=== PATIENT | female | born 1945 | race Caucasian/White ===

== ENCOUNTER 2020-07-02 20:18 | Inpatient (IN) | payer MEDICARE, OTHER ==
[~2020-07-02] VITALS: Ht 152.4 cm; Wt 48.3 kg
--- NOTE | 2020-07-02 20:45 | Diagnostic Imaging Report ---
Clinical indication: Patient with chest pain. Exam: Portable chest x-ray upright view. Comparisons: None. Findings: Lungs/pleura: Lungs are clear. There is no pneumothorax. There is no pleural effusion. Mediastinum: Unremarkable. Pulmonary vasculature: Unremarkable. Heart: Unremarkable. Bones/extrathoracic soft tissue: There are hypertrophic spurs involving the thoracic spine. Surgical clips are seen overlying the right upper quadrant which could be related to cholecystectomy changes. Impression: There is no radiographic evidence of acute cardiopulmonary process. Dictated by: Dictated on workstation # [id number]
[2020-07-02 20:48] LABS: WHITE BLOOD COUNT 34.2 10^3/uL (4.3-11.0)
[2020-07-02 20:49] LABS: BASOPHILS # (AUTO) 0.1 10^3/uL (0.0-0.1); BASOPHILS % (AUTO) 0 % (0-10); EOSINOPHILS % (AUTO) 0 % (0-10); HEMATOCRIT 38 % (35-52); HEMOGLOBIN 11.5 G/DL (11.5-16.0); LYMPHOCYTES # (AUTO) 1.2 X 10^3 (1.0-4.0); LYMPHOCYTES % (AUTO) 3 % (12-44); MEAN CORPUSCULAR HEMOGLOBIN 22 PG (25-34); MEAN CORPUSCULAR HGB CONC 31 G/DL (32-36); MEAN CORPUSCULAR VOLUME 73 FL (80-99); MEAN PLATELET VOLUME 8.7 FL (7.4-10.4); MONOCYTES % (AUTO) 6 % (0-12); NEUTROPHILS # (AUTO) 30.8 X 10^3 (1.8-7.8); NEUTROPHILS % (AUTO) 90 % (42-75); PLATELET COUNT 607 10^3/uL (130-400)
[2020-07-02] MEDS ORDERED: dilTIAZem DRIP PRE-MIX 125 ML IV SCH (21:00)
[2020-07-02 21:07] LABS: ALANINE AMINOTRANSFERASE 10 U/L (0-55); ALKALINE PHOSPHATASE 82 U/L (40-136); BILIRUBIN,TOTAL 0.3 MG/DL (0.1-1.0); BUN/CREATININE RATIO 19; CALCIUM 9.2 MG/DL (8.5-10.1); CARBON DIOXIDE 28 MMOL/L (21-32); CHLORIDE 97 MMOL/L (98-107); CREATININE SERUM 0.77 MG/DL (0.60-1.30); GFR ESTIMATED > 60; GLUCOSE 223 MG/DL (70-105); POTASSIUM 2.9 MMOL/L (3.6-5.0); SODIUM 138 MMOL/L (135-145); TOTAL PROTEIN 6.2 GM/DL (6.4-8.2)
[2020-07-02 21:08] LABS: LYMPHOCYTES % (MANUAL) 4 %; MONOCYTES % (MANUAL) 3 %; NEUTROPHILS % (MANUAL) 93 %; PLATELET ESTIMATE INCREASED
[2020-07-02 21:09] LABS: MICROCYTOSIS MODERATE; POIKILOCYTOSIS SLIGHT
[2020-07-02 21:10] LABS: ELLIPT/OVALOCYTES SLIGHT; TARGET CELLS MODERATE; TEAR DROP CELLS SLIGHT; TOXIC GRANULATION/VACUOLAZATIO 4+
[2020-07-02] MEDS ORDERED: CEFEPIME INJECTION 2,000 MG in WATER (STERILE) FOR INJECTION 20 ML IV ONE (21:15)
[2020-07-02] MEDS ORDERED: FUROSEMIDE 40 MG/4 ML INJ (LASIX) IVP ONE (22:15)
[2020-07-02] MEDS ORDERED: LABETALOL HCL 20 MG/4 ML VIAL IV ONE (22:15)
[2020-07-02] MEDS ORDERED: IOHEXOL 350 MG/ML 100 ML (OMNIPAQUE 350) VIAL IV ONE (23:15)
[2020-07-02] MEDS ORDERED: CATHETER FLUSH 10 ML SYR IV PRN (23:15)
[2020-07-02] MEDS ORDERED: HOLD METFORMIN - RECEIVED CONTRAST 20 ML VIAL IV SCH (23:15)
[2020-07-02] MEDS ORDERED: NS 100 ML (IVPB) BAG IV ONE (23:15)
[2020-07-02 23:58] LABS: CLARITY,URINE CLEAR; COLOR,URINE STRAW
[2020-07-03] VITALS (8 sets, daily range): BP systolic 101–140; BP diastolic 53–70
[2020-07-03 00:03] LABS: BILIRUBIN,URINE NEGATIVE (NEGATIVE); GLUCOSE, URINE (UA) NEGATIVE (NEGATIVE); KETONES,URINE NEGATIVE (NEGATIVE); LEUKOCYTE ESTERASE ,URINE NEGATIVE (NEGATIVE); NITRITE,URINE NEGATIVE (NEGATIVE); PROTEIN,URINE NEGATIVE (NEGATIVE); RBC,URINE 0-2 /HPF
[2020-07-03 00:04] LABS: BACTERIA,URINE TRACE /HPF
[2020-07-03] MEDS ORDERED: LEVOFLOXACIN 750 MG/150 ML IV 150 ML IV ONE (00:45)
[2020-07-03] MEDS ORDERED: metroNIDAZOLE 500MG/100ML IVPB 100 ML IV ONE (00:45)
--- NOTE | 2020-07-03 00:51 | ED General ---
General Chief Complaint: Cardiac/General Problems Stated Complaint: DIZZY,DEHYDRATION Nursing Triage Note: Patient is brought in via EMS with complaints of general malaise. Patient states that she has not been feeling well for several days. Patient did start to feel her heart race about 3 days ago. Patient also states that she has had one episode of A-fib in the hospital at but it had resolved prior to discharge. Patient reports poor oral intake and frequent falls. Nursing Sepsis Screen: No Definite Risk History of Present Illness Date Seen by Provider: Jul 03, 2020 Time Seen by Provider: 21:45 Initial Comments Patient is a 74-year-old female with history of proximal atrial fibrillation who presents with generalized weakness and palpitations. Patient noted to have A. fib with RVR on EMS arrival with heart rate in the 170s 180s. Patient denies chest pain but reports dizziness lightheadedness shortness of breath fatigue and weakness. Symptom onset was 3 days ago. Patient had episode of atrial fibrillation 3 years ago during his hospital stay but does not believe she has had any episodes since that time. She recently placed on a 5-day course of steroids for treatment of psoriasis. Patient also reports GI upset with diarrhea. Denies fever chills, nausea vomiting or sweats. No other symptoms or complaints. Timing/Duration: 3-4 Days Severity: Moderate Modifying Factors: improves with Other Associated Systoms: Other Allergies and Home Medications Allergies Coded Allergies: Penicillins (Verified Allergy, Intermediate, 07/02/20) Patient Home Medication List Home Medication List Reviewed: Yes Review of Systems Review of Systems Constitutional: see HPI EENTM: see HPI Respiratory: see HPI Cardiovascular: see HPI Gastrointestinal: see HPI Genitourinary: see HPI Musculoskeletal: see HPI Skin: see HPI Psychiatric/Neurological: See HPI Hematologic/Lymphatic: See HPI Immunological/Allergic: see HPI All Other Systems Reviewed Negative Unless Noted: Yes Past Asecchp-Sdeqef-Qhcspz Hx Past Med/Social Hx: Reviewed Nursing Past Med/Soc Hx Patient Social History Alcohol Use: Denies Use Smoking Status: Never a Smoker Recent Infectious Disease Expo: No Past Medical History Surgeries: Yes Gallbladder Respiratory: No Cardiac: Yes Atrial Fibrillation Neurological: No (Psoriatic Arthritis) Genitourinary: No Gastrointestinal: No Musculoskeletal: No Endocrine: No HEENT: No Cancer: No Psychosocial: No Integumentary: No Physical Exam Vital Signs Vital Signs - First Documented 07/02/20 20:18 Temp 36.8 Pulse 160 Resp 20 B/P (MAP) 108/65 (79) Pulse Ox 99 O2 Delivery Room Air Capillary Refill : Greater Than 3 Seconds Height, Weight, BMI Height: '" Weight: lbs. oz. kg; 21.00 BMI Method: General Appearance: No Apparent Distress, Anxious Eyes: Bilateral Eye Normal Inspection, Bilateral Eye PERRL, Bilateral Eye EOMI HEENT: PERRL/EOMI, Pharynx Normal, Moist Mucous Membranes Neck: Supple Respiratory: Lungs Clear Cardiovascular: Tachycardia Gastrointestinal: Non Tender, Soft, Abnormal Bowel Sounds Back: Normal Inspection, No CVA Tenderness Extremity: Normal Capillary Refill Neurologic/Psychiatric: Alert, Oriented x3 Focused Exam Sepsis Stage: Ruled Out Lactate Level 07/02/20 21:18: Lactic Acid Level 1.87 Lactic Acid Level Laboratory Tests Test 07/02/20 21:18 Lactic Acid Level 1.87 MMOL/L (0.50-2.00) Progress/Results/Core Measures Suspected Sepsis Recent Fever Within 48 Hours: No Infection Criteria Present: None New/Unexplained Altered Menta: No Sepsis Screen: No Definite Risk SIRS Temperature: Pulse: 160 Respiratory Rate: 20 Laboratory Tests 07/02/20 20:37: White Blood Count 34.2*H Blood Pressure 108 /65 Mean: 79 07/02/20 21:18: Lactic Acid Level 1.87 Laboratory Tests 07/02/20 20:37: Creatinine 0.77, Platelet Count 607H, Total Bilirubin 0.3 Results/Orders Lab Results Laboratory Tests Test 07/02/20 20:37 07/02/20 21:18 07/02/20 23:53 Range/Units White Blood Count 34.2 *H 4.3-11.0 10^3/uL Red Blood Count 5.19 4.35-5.85 10^6/uL Hemoglobin 11.5 11.5-16.0 G/DL Hematocrit 38 35-52 % Mean Corpuscular Volume 73 L 80-99 FL Mean Corpuscular Hemoglobin 22 L 25-34 PG Mean Corpuscular Hemoglobin Concent 31 L 32-36 G/DL Red Cell Distribution Width 19.4 H 10.0-14.5 % Platelet Count 607 H 130-400 10^3/uL Mean Platelet Volume 8.7 7.4-10.4 FL Immature Granulocyte % (Auto) 1 % Neutrophils (%) (Auto) 90 H 42-75 % Lymphocytes (%) (Auto) 3 L 12-44 % Monocytes (%) (Auto) 6 0-12 % Eosinophils (%) (Auto) 0 0-10 % Basophils (%) (Auto) 0 0-10 % Neutrophils # (Auto) 30.8 H 1.8-7.8 X 10^3 Lymphocytes # (Auto) 1.2 1.0-4.0 X 10^3 Monocytes # (Auto) 2.0 H 0.0-1.0 X 10^3 Eosinophils # (Auto) 0.0 0.0-0.3 10^3/uL Basophils # (Auto) 0.1 0.0-0.1 10^3/uL Immature Granulocyte # (Auto) 0.3 H 0.0-0.1 10^3/uL Neutrophils % (Manual) 93 % Lymphocytes % (Manual) 4 % Monocytes % (Manual) 3 % Toxic Granulation 4+ Platelet Estimate INCREASED Poikilocytosis SLIGHT Microcytosis MODERATE Target Cells MODERATE Tear Drop Cells SLIGHT Elliptocytes SLIGHT Sodium Level 138 135-145 MMOL/L Potassium Level 2.9 L 3.6-5.0 MMOL/L Chloride Level 97 L 98-107 MMOL/L Carbon Dioxide Level 28 21-32 MMOL/L Anion Gap 13 5-14 MMOL/L Blood Urea Nitrogen 15 7-18 MG/DL Creatinine 0.77 0.60-1.30 MG/DL Estimat Glomerular Filtration Rate > 60 BUN/Creatinine Ratio 19 Glucose Level 223 H 70-105 MG/DL Calcium Level 9.2 8.5-10.1 MG/DL Corrected Calcium 10.0 8.5-10.1 MG/DL Total Bilirubin 0.3 0.1-1.0 MG/DL Aspartate Amino Transf (AST/SGOT) 11 5-34 U/L Alanine Aminotransferase (ALT/SGPT) 10 0-55 U/L Alkaline Phosphatase 82 40-136 U/L Troponin I < 0.30 <0.30 NG/ML Pro-B-Type Natriuretic Peptide 926.7 H <75.0 PG/ML Total Protein 6.2 L 6.4-8.2 GM/DL Albumin 3.0 L 3.2-4.5 GM/DL Lactic Acid Level 1.87 0.50-2.00 MMOL/L Urine Color STRAW Urine Clarity CLEAR Urine pH 6.0 5-9 Urine Specific [place] 1.010 L 1.016-1.022 Urine Protein NEGATIVE NEGATIVE Urine Glucose (UA) NEGATIVE NEGATIVE Urine Ketones NEGATIVE NEGATIVE Urine Nitrite NEGATIVE NEGATIVE Urine Bilirubin NEGATIVE NEGATIVE Urine Urobilinogen 0.2 < = 1.0 MG/DL Urine Leukocyte Esterase NEGATIVE NEGATIVE Urine RBC (Auto) TRACE-I NEGATIVE Urine RBC 0-2 /HPF Urine WBC 10-25 H /HPF Urine Squamous Epithelial Cells 5-10 /HPF Urine Crystals NONE /LPF Urine Bacteria TRACE /HPF Urine Casts NONE /LPF Urine Mucus SMALL H /LPF Urine Culture Indicated YES My Orders Orders - LES JIMENEZ DO Cbc With Automated Diff (07/02/20 20:25) Comprehensive Metabolic Panel (07/02/20 20:25) Troponin I Fs (07/02/20 20:25) Probnp Fs (07/02/20 20:25) Chest 1 View Ap/Pa Only (07/02/20 20:25) Ekg Tracing (07/02/20 20:25) Manual Differential (07/02/20 20:37) Diltiazem Injection (Cardizem Injection) (07/02/20 21:00) Diltiazem Drip Pre-Mix (Cardizem Drip Pr (07/02/20 21:00) Urinalysis (07/02/20 21:04) Straight Cath (Urinary) (07/02/20 21:04) Blood Culture (07/02/20 21:04) Lactic Acid Analyzer (07/02/20 21:04) Blood Culture (07/02/20 21:04) Cefepime Injection (Maxipime Injection) (07/02/20 21:15) Ed Iv/Invasive Line Start (07/02/20 21:09) Furosemide Injection (Lasix Injection) (07/02/20 22:15) Ct Abdomen/Pelvis W (07/02/20 22:56) Iohexol Injection (Omnipaque 350 Mg/Ml 1 (07/02/20 23:15) Received Contrast (Hold Metformin- Contr (07/02/20 23:15) Sodium Chloride Flush (Catheter Flush Sy (07/02/20 23:15) Ns (Ivpb) (Sodium Chloride 0.9% Ivpb Bag (07/02/20 23:15) Urine Culture (07/02/20 23:53) Metronidazole 500mg/100ml Ivpb (Flagyl 5 (07/03/20 00:45) Levofloxacin 750 Mg/150 Ml Iv (Levaquin (07/03/20 00:45) Medications Given in ED Current Medications Medications Dose Ordered Sig/Danielle Route Start Time Stop Time Status Last Admin Dose Admin Cefepime HCl 2000 mg/Sterile Water 20 ml @ 240 mls/hr ONCE ONCE IV 07/02/20 21:15 07/02/20 21:19 DC 07/02/20 22:25 240 MLS/HR Diltiazem HCl 20 mg ONCE ONCE IVP 07/02/20 21:00 07/02/20 21:01 DC 07/02/20 21:02 20 MG Furosemide 40 mg ONCE ONCE IVP 07/02/20 22:15 07/02/20 22:16 DC 07/02/20 22:21 40 MG Iohexol 100 ml ONCE ONCE IV 07/02/20 23:15 07/02/20 23:16 DC 07/02/20 23:34 100 ML Sodium Chloride 10 ml NEEDED PRN IV 07/02/20 23:15 07/02/20 23:34 10 ML Vital Signs/I&O 07/02/20 20:18 Temp 36.8 Pulse 160 Resp 20 B/P (MAP) 108/65 (79) Pulse Ox 99 O2 Delivery Room Air Capillary Refill : Greater Than 3 Seconds Blood Pressure Mean: 79 Departure Communication (Admissions) Patient given Cardizem bolus and drip with improved rate control. Patient remains in A. fib. While in the ED. She had 3 grossly bloody bowel movements. Concern for possible sepsis due to elevation in white blood cell count. CT findings suggestive of colitis. IV antibiotics given. Blood pressure remained stable. But at fluid resuscitation due to colitis. Impression Primary Impression: Atrial fibrillation with RVR Additional Impression: Colitis Disposition: ADMITTED INPATIENT Condition: Stable Admissions Decision to Admit Reason: Admit from ER (General) Decision to Admit/Date: Jul 03, 2020 Time/Decision to Admit Time: 01:19 Transfer Transfer Reason: Exceeds level of care Method of Transfer: EMS Departure-Patient Inst. Decision time for Depature: 01:06 Referrals: JOSHUA MOORE DO (PCP/Family) Primary Care Physician LES JIMENEZ DO Jul 03, 2020 00:51
[2020-07-03] MEDS ORDERED: ONDANSETRON 4 MG/2 ML (SDV) Z0FRAN IVP PRN (03:45)
[2020-07-03 03:48] LABS: BASOPHILS % (AUTO) 0 % (0-10); EOSINOPHILS % (AUTO) 0 % (0-10); HEMATOCRIT 33 % (35-52); LYMPHOCYTES # (AUTO) 1.5 10^3/uL (1.0-4.0); LYMPHOCYTES % (AUTO) 7 % (12-44); MEAN CORPUSCULAR HEMOGLOBIN 22 pg (25-34); MEAN CORPUSCULAR HGB CONC 31 g/dL (32-36); MEAN CORPUSCULAR VOLUME 71 fL (80-99); MEAN PLATELET VOLUME 8.9 fL (9.0-12.2); MONOCYTES # (AUTO) 1.6 10^3/uL (0.0-1.0); MONOCYTES % (AUTO) 7 % (0-12); NEUTROPHILS # (AUTO) 19.3 10^3/uL (1.8-7.8); NEUTROPHILS % (AUTO) 86 % (42-75); PLATELET COUNT 455 10^3/uL (130-400); WHITE BLOOD COUNT 22.6 10^3/uL (4.3-11.0)
[2020-07-03 04:05] LABS: CHLORIDE 100 MMOL/L (98-107); POTASSIUM 2.8 MMOL/L (3.6-5.0); SODIUM 139 MMOL/L (135-145)
[2020-07-03 04:07] LABS: CALCIUM 8.8 MG/DL (8.5-10.1); GLUCOSE 157 MG/DL (70-105)
[2020-07-03 04:09] LABS: CARBON DIOXIDE 26 MMOL/L (21-32)
[2020-07-03 04:11] LABS: CREATININE SERUM 0.78 MG/DL (0.60-1.30); GFR ESTIMATED > 60; PHOSPHORUS 4.1 MG/DL (2.3-4.7)
[2020-07-03 04:12] LABS: BUN/CREATININE RATIO 18
[2020-07-03 04:13] LABS: MAGNESIUM 2.2 MG/DL (1.6-2.4)
[2020-07-03] MEDS: D5 1/2 NS 1000 ML IV SOLUTION 1,000 ML IV SCH ×2 (04:25→16:52)
[2020-07-03] MEDS: POTASSIUM CL 10MEQ/50ML IVPB 50 ML IV SCH ×4 (05:02→13:27)
--- NOTE | 2020-07-03 06:51 | Diagnostic Imaging Report ---
PROCEDURE: CT abdomen and pelvis with contrast. TECHNIQUE: Multiple contiguous axial images were obtained through the abdomen and pelvis after administration of intravenous contrast. Auto Exposure Controls were utilized during the CT exam to meet ALARA standards for radiation dose reduction. All CT scans use one or more of the following dose optimizing techniques: automated exposure control, MA and/or KvP adjustment based on patient size and exam type or iterative reconstruction. INDICATION: Gastrointestinal bleed. No relevant comparison. Detection and localization of suspected gastrointestinal bleed is limited by the presence of large bowel contrast in the absence of both preinjection and delayed post injection sequences. There is irregular thickening of the sigmoid colon. Curvilinear areas of intraluminal hyperdensity could be arterial phase contrast extravasation versus indwelling enteric contrast media. Underlying mass cannot be excluded and follow-up with colonoscopy recommended. There is extensive colonic diverticulosis. No abscess. There is no free air or extraluminal gas. There is some thickening of the mesial rectal fascia and stranding of the perirectal fat as well as stranding of the fat adjacent to the lower 3rd of the sigmoid colon. There is no bowel obstruction. The gallbladder is surgically absent. The liver appeared unremarkable. The adrenals negative. The spleen normal. The kidneys are unobstructed. The atherosclerotic aorta is patent and nonaneurysmal. The uterus unremarkable. No adnexal lesion. The ovaries nonvisualized. The urinary bladder itself appeared normal. The lung bases and the osseous structures nonacute. IMPRESSION: 1. Irregular thickening of the sigmoid with indeterminate intraluminal hyperdensity, an area of bleeding is suspected. Underlying mass could not be differentiated from changes of diverticulitis. No abscess or drainable fluid collection, no free air. 2. Nonaneurysmal atherosclerosis, previous cholecystectomy. No acute urinary tract pathology. 3. No lymphadenopathy or liver mass. 4. Not mentioned above, large duodenal diverticulum nonobstructing and nonacute. 5. No hemoperitoneum or retroperitoneal hemorrhage. Dictated by: Dictated on workstation # [id number]
[2020-07-03] MEDS: metroNIDAZOLE 500 MG/100 ML IVPB (PRE-MIX) IV SCH ×2 (08:58→16:52)
--- NOTE | 2020-07-03 09:52 | History & Physical-Hospitalist ---
MARIPOSAJaelMARY,MED STUDENT 07/03/20 0952: History of Present Illness HPI/Chief Complaint Patient is a 74yo female with a PMH of A-fib, HTN, psoriatic arthritis, T2DM and IBD who presented to [facility] c/o general malaise, weakness and palpitations for x3 days. She started noticing her heart racing 3 days ago and has since had weakness, dizziness and some lightheadedness. She has a history of an episode of A-fib when she was hospitalized at 3 years ago, but states it resolved during her stay and doesn't think she has had an episode since. She does not take any rate controlling medications. In the ED, her heart rate was in the 170's to 180's, and she was started on a Cardizem drip, and her rate improved. She also notes she has had diarrhea the last few days, and was noted to have 3 grossly bloody stools while in the ED. She reports a history of IBD, but says she only takes Imodium. She recently completed a 5 day course of prednisone for her psoriatic arthritis. She denies fevers, chills, SOB, chest pain, nausea, vomiting, or abdominal pain. Source: patient Exam Limitations: no limitations Date Seen 07/03/20 Attending Physician Rachel Benson MD PCP Masoud Abdullahi DO Referring Physician Date of Admission Jul 03, 2020 at 03:20 Home Medications & Allergies Home Medications Reviewed patient Home Medication Reconciliation performed by pharmacy medication reconciliations satellite tv technician and/or nursing. Patients Allergies have been reviewed. Allergies Allergies Coded Allergies Penicillins (Verified Allergy, Intermediate, 07/02/20) Past Scwmeup-Dirkzi-Gwslhd Hx Past Med/Social Hx: Reviewed Nursing Past Med/Soc Hx Patient Social History Alcohol Use: Denies Use Recreational Drug Use: No Smoking Status: Never a Smoker Recent Foreign Travel: No Contact w/other who traveled: No Recent Infectious Disease Expo: No Past Medical History Surgeries: Gallbladder Cardiac: Atrial Fibrillation, Hypertension Gastrointestinal: Colitis, Hemorrhoids, Irritable Bowel Endocrine: Diabetes, Non-Insulin dep Review of Systems Constitutional: No chills; dizziness; No fever; malaise EENTM: throat pain; No blurred vision, No double vision, No vision loss Respiratory: No cough, No short of breath, No wheezing Cardiovascular: see HPI; No chest pain, No edema; palpitations Gastrointestinal: see HPI; No abdominal pain; diarrhea, loss of appetite; No nausea, No vomiting Genitourinary: No dysuria, No hematuria, No pain Musculoskeletal: no symptoms reported Skin: no symptoms reported Psychiatric/Neurological: No Symptoms Reported Physical Exam Physical Exam Vital Signs Vital Signs - First Documented 07/02/20 20:18 Temp 36.8 Pulse 160 Resp 20 B/P (MAP) 108/65 (79) Pulse Ox 99 O2 Delivery Room Air Capillary Refill : Greater Than 3 Seconds Height, Weight, BMI Height: '" Weight: lbs. oz. kg; 20.79 BMI Method: General Appearance: No Apparent Distress, WD/WN HEENT: PERRL/EOMI, Moist Mucous Membranes, Pharyngeal Erythema Neck: Non Tender, Supple Respiratory: Lungs Clear, No Accessory Muscle Use, No Respiratory Distress Cardiovascular: No Edema, No Murmur, Tachycardia Gastrointestinal: Normal Bowel Sounds, Soft, Tenderness (RUQ and RLQ tenderness) Extremity: Normal Capillary Refill, No Calf Tenderness, No Pedal Edema Neurologic/Psychiatric: Alert, Oriented x3 Skin: Normal Color, Warm/Dry Results Results/Procedures Labs Laboratory Tests 07/02/20 20:37 07/03/20 03:40 Patient resulted labs reviewed. Assessment/Plan Assessment and Plan A-fib with RVR Currently off Cardizem Cardiology consulted Plan for Echo Colitis Surgery consulted On Levaquin and Flagyl Planning for colonoscopy tomorrow Hyperkalemia Continue to replace Mg 2.2 T2DM Diet controlled at home Monitor RACHEL BENSON MD 07/03/20 1211: History of Present Illness Time Seen by a Provider: 10:45 Past Khktpwu-Ytclri-Advoum Hx Past Med/Social Hx: Reviewed Nursing Past Med/Soc Hx Patient Social History Marrital Status: Family History Reviewed Nursing Family Hx Assessment/Plan Admission Diagnosis Atrial Fibrillation with RVR Admission Status: Inpatient Order (span 2 midnights) Reason for Inpatient Admission: see below Assessment and Plan Pt was admitted due to atrial fibrillation with rapid ventricular rate. She has had once episode of this in the past roughly 3 years ago but no recurrences and has not been on any medications for it. She has not felt well for a few days and related it to stress in her home life but yesterday worsened and called EMS. On EMS arrival HR was in the 170-180s. She was found to be in a-fib with RVR and admitted to the ICU. She also has bloody diarrhea. She reports this has been going on for 30 years ever since her gallbladder was removed. She was told she has irritable bowel disease and has just dealt with it but over the past couple of years has like ~60lbs due to her chronic diarrhea. She is now off cardizem and heart rate is well controlled. EKG confirms in sinus but sinus arrythmia upon my exam. Plan is for colonoscopy tomorrow with Dr Amanda. Discussed risks and benefits of anticoagulation at time and recommend holding blood thinners. Pt and family agreeable to this. Did discuss code status with patient in presence of her family and nurse and she elects to be a DNR. Order placed. Diagnosis/Problems Diagnosis/Problems (1) Atrial fibrillation with RVR Status: Acute (2) Diverticulitis Status: Acute (3) Bright red blood per rectum Status: Acute (4) Irritable bowel disease Qualifiers: Irritable bowel syndrome type: with diarrhea Qualified Codes: K58.0 - Irritable bowel syndrome with diarrhea (5) Normocytic anemia Status: Acute (6) Thrombocytosis Status: Acute (7) NSTEMI (non-ST elevated myocardial infarction) Status: Acute (8) Anxiety and depression Status: Chronic (9) Hypokalemia Status: Chronic (10) DNR (do not resuscitate) discussion Supervisory-Addendum Brief Verification & Attestation Participated in pt care: history, MDM, physical Personally performed: exam, history, MDM, supervision of care Care discussed with: Medical Student Procedures: n/a Results interpretation: Verified all documentation Verification and Attestation of Medical Student E/M Service A medical student performed and documented this service in my presence. I reviewed and verified all information documented by the medical student and made modifications to such information, when appropriate. I personally performed the physical exam and medical decision making. Rachel Benson, Jul 03, 2020,12:07 MARY CASTANEDA,MED STUDENT Jul 03, 2020 09:52 RACHEL BENSON MD Jul 03, 2020 12:11
[2020-07-03] MEDS: LEVOFLOXACIN 750 MG/D5W 150 ML PRE-MIX IV SCH (10:02)
--- NOTE | 2020-07-03 11:59 | CONSULTATION REPORT ---
DATE OF SERVICE: 07/03/2020 ADMITTING PRIMARY CARE PHYSICIAN: Masoud Abdullahi DO HISTORY: The patient is a 74-year-old female with a past medical history including atrial fibrillation, hypertension as well as psoriatic arthritis. She is originally from [place]; however, moved to [place] and then moved back to the area recently. She states that she was hospitalized at [facility] for approximately 10 days for complications related to psoriatic arthritis. At that time, she developed atrial fibrillation; however, states that it was only one episode and was not medicated. She reports that she did have her gallbladder removed approximately 25 years ago and since that time, she has had loose stools; however, in the past 2 years, she reports red blood per rectum on an intermittent basis, which was initially mild; however, has increased in frequency. She states that she was also diagnosed with irritable bowel syndrome. She has never had a colonoscopy up to this point in her life. She does not report any history of gastroesophageal reflux disease nor peptic ulcer disease. PAST MEDICAL HISTORY: Psoriatic arthritis, hypertension, diabetes, irritable bowel syndrome, history of atrial fibrillation. PAST SURGICAL HISTORY: Open cholecystectomy. ALLERGIES: PENICILLIN. MEDICATIONS: Prednisone, valacyclovir, fluoxetine. SOCIAL HISTORY: Previous smoker, quit 12 years ago, 40 pack years. Negative alcohol. FAMILY HISTORY: Mother, lung cancer. VITAL SIGNS: Temperature 36.8, blood pressure 120/55, pulse 72, respirations 17. REVIEW OF SYSTEMS: Well-nourished female currently in no acute distress. She is not experiencing any shortness of breath or difficulty breathing. No chest pain, palpitations, diaphoresis. No nausea, vomiting with loose stools with intermittent episodes of red blood per rectum for the past 2 years. She also reports losing approximately 60 pounds in that timeframe as well. No fever or chills. PHYSICAL EXAMINATION: CHEST: Clear. Good breath sounds bilaterally. HEART: Regular, no murmurs. EXTREMITIES: No lower extremity edema. Negative Homans sign. HEENT: No scleral icterus. NECK: No cervical lymphadenopathy. ABDOMEN: Soft, nontender, nondistended. LABORATORY DATA: WBC 22.6, hemoglobin 10.0, hematocrit 33, platelets 455. BUN 14, creatinine 0.78. ASSESSMENT AND PLAN: A 74-year-old female with intermittent rectal bleeding, atrial fibrillation and weight loss. A colonoscopy was recommended years ago; however, she was resistant at that time. However, she is willing to proceed with a colonoscopy, which we will schedule. Job ID: [id number] DocumentID: [id number] Dictated Date: 07/03/2020 11:45:40 Airplane Pilot Crop Dusting Date: 07/03/2020 11:58:59 Dictated By: ANAHI MACK MD
[2020-07-03] MEDS: inSUlin ASPART (NovoLOG) 1 UNIT/0.01 ML (CHARGE PER UNIT) SC SCH ×3 (12:00→21:13)
[2020-07-03] MEDS ORDERED: MAGNESIUM CITRATE 300 ML BTL PO ONE (13:00)
[2020-07-03] MEDS ORDERED: MAGIC MOUTHWASH, ADULT 155 ML BOTTLE PO SCH (13:00)
--- NOTE | 2020-07-03 13:11 | Consultation-Cardiology ---
HPI-Cardiology Cardiology Consultation: Date of Consultation 07/03/20 Time Seen by a Provider: 11:30 Date of Admission Attending Physician Eileen Benson MD Admitting Physician Masoud Abdullahi DO Consulting Physician AMRIK ARCHULETA MD, MA, FACP, FACC, FSCAI, CCDS HPI: Chief Complaint: Physician requesting consult: Dr Benson Reason for Cardiology consultation: PAF w/ RVR HPI 74 yo women admitted to Dr Benson on the night of 07/02/20 after she had presented with gen weakness and malaise and a feeling a rapid heart beat. Has had a bout of bright red blood per rectum during this hospitalization. Denies chest pain. Denies shortness of breath. Denies n/v. Has a chronic h/o psoriasis affecting mostly the skin of the lower limbs. Was placed recently on prednisone by her pcp. On the day or presentation, she was generally very weak. She had many episodes of weakness that "brought me down," but she specifically denies any juani syncope Review of Systems-Cardiology Review of Systems Constitutional: malaise; No weight loss, No weight gain Eyes: No vision change Ears/Nose/Throat: No ear discharge, No nasal drainage, No recent hearing loss Respiratory: As described under HPI Cardiovascular: As described under HPI Gastrointestinal: As described under HPI Genitourinary: No dysuria, No hematuria, No urine frequency changes Musculoskeletal: No back pain, No joint pain Skin: As described under HPI Psychiatric/Neurological: No seizure, No focal weakness, No syncope Hematologic: No bleeding abnormalities All Other Systems Reviewed Negative Unless Noted: Yes [id number] Hx Patient Social History Smoking Status: Never a Smoker Have you traveled recently?: No Alcohol Use?: No Pt feels they are or have been: No Past Medical History PMH As described under Assessment. Family Medical History Family Medical History: She does not report fam h/o early CAD or SCD Allergies and Home Medications Allergies Coded Allergies: Penicillins (Verified Allergy, Intermediate, 07/02/20) Patient Home Medication List Home Medication List Reviewed: Yes Physical Exam-Cardiology Physical Exam Vital Signs/I&O 07/03/20 07/03/20 07/03/20 07/03/20 02:36 03:30 03:32 03:34 Temp 36.6 Pulse 84 87 95 Resp 17 22 B/P (MAP) 89/68 104/60 (75) Pulse Ox 98 97 97 O2 Delivery Room Air Room Air Room Air 07/03/20 07/03/20 07/03/20 07/03/20 04:00 07:00 07:00 08:00 Pulse 38 68 71 78 Resp 18 29 B/P (MAP) 114/58 (76) 121/70 (87) 120/55 (76) Pulse Ox 97 O2 Delivery Room Air Room Air Room Air 07/03/20 07/03/20 07/03/20 07/03/20 08:06 08:09 09:00 10:00 Temp 36.8 Pulse 67 72 Resp 17 37 B/P (MAP) O2 Delivery Room Air Room Air Room Air 07/03/20 07/03/20 12:00 12:58 Pulse 83 75 Resp 10 B/P (MAP) 101/53 (69) Pulse Ox 98 O2 Delivery Room Air 07/03/20 00:00 Intake Total 20 ml Balance 20 ml Capillary Refill : Greater Than 3 Seconds Constitutional: AAO x 3, well-developed, well-nourished HEENT: EOMI, hearing is well preserved Neck: carotid pulses are 2 + bilaterally, with good upstrokes Respiratory: No accessory muscle use; other (fair to good, bilat air entry, diminished at the bases) Cardiovascular: regular rate-rhythm, S1 and S2, systolic murmur (soft STEPHANIE at card base) Gastrointestinal: No tender; soft; No guarding, No rebound; audible bowel sounds Extremities: No clubbing, No cyanosis, No significant edema Neurologic/Psychiatric: oriented x 3, other (moves all limbs equally) Skin: No rash on exposed areas, No ulcerations on exposed areas Data Review Labs Laboratory Tests 07/02/20 20:37: White Blood Count 34.2*H, Red Blood Count 5.19, Hemoglobin 11.5, Hematocrit 38, Mean Corpuscular Volume 73L, Mean Corpuscular Hemoglobin 22L, Mean Corpuscular Hemoglobin Concent 31L, Red Cell Distribution Width 19.4H, Platelet Count 607H, Mean Platelet Volume 8.7, Immature Granulocyte % (Auto) 1, Neutrophils (%) (Auto) 90H, Lymphocytes (%) (Auto) 3L, Monocytes (%) (Auto) 6, Eosinophils (%) (Auto) 0, Basophils (%) (Auto) 0, Neutrophils # (Auto) 30.8H, Lymphocytes # (Auto) 1.2, Monocytes # (Auto) 2.0H, Eosinophils # (Auto) 0.0, Basophils # (Auto) 0.1, Immature Granulocyte # (Auto) 0.3H, Neutrophils % (Manual) 93, Lymphocytes % (Manual) 4, Monocytes % (Manual) 3, Toxic Granulation 4+, Platelet Estimate INCREASED, Poikilocytosis SLIGHT, Microcytosis MODERATE, Target Cells MODERATE, Tear Drop Cells SLIGHT, Elliptocytes SLIGHT, Sodium Level 138, Potassium Level 2.9L, Chloride Level 97L, Carbon Dioxide Level 28, Anion Gap 13, Blood Urea Nitrogen 15, Creatinine 0.77, Estimat Glomerular Filtration Rate > 60, BUN/Creatinine Ratio 19, Glucose Level 223H, Calcium Level 9.2, Corrected Calcium 10.0, Total Bilirubin 0.3, Aspartate Amino Transf (AST/SGOT) 11, Alanine Aminotransferase (ALT/SGPT) 10, Alkaline Phosphatase 82, Troponin I < 0.30, Pro-B-Type Natriuretic Peptide 926.7H, Total Protein 6.2L, Albumin 3.0L 07/02/20 21:18: Lactic Acid Level 1.87 07/02/20 23:53: Urine Color STRAW, Urine Clarity CLEAR, Urine pH 6.0, Urine Specific [place] 1.010L, Urine Protein NEGATIVE, Urine Glucose (UA) NEGATIVE, Urine Ketones NEGATIVE, Urine Nitrite NEGATIVE, Urine Bilirubin NEGATIVE, Urine Urobilinogen 0.2, Urine Leukocyte Esterase NEGATIVE, Urine RBC (Auto) TRACE-I, Urine RBC 0-2, Urine WBC 10-25H, Urine Squamous Epithelial Cells 5-10, Urine Crystals NONE, Urine Bacteria TRACE, Urine Casts NONE, Urine Mucus SMALLH, Urine Culture Indicated YES 07/03/20 03:40: White Blood Count 22.6H, Red Blood Count 4.62, Hemoglobin 10.0L, Hematocrit 33L, Mean Corpuscular Volume 71L, Mean Corpuscular Hemoglobin 22L, Mean Corpuscular Hemoglobin Concent 31L, Red Cell Distribution Width 18.3H, Platelet Count 455H, Mean Platelet Volume 8.9L, Immature Granulocyte % (Auto) 1, Neutrophils (%) (Auto) 86H, Lymphocytes (%) (Auto) 7L, Monocytes (%) (Auto) 7, Eosinophils (%) (Auto) 0, Basophils (%) (Auto) 0, Neutrophils # (Auto) 19.3H, Lymphocytes # (Auto) 1.5, Monocytes # (Auto) 1.6H, Eosinophils # (Auto) 0.0, Basophils # (Auto) 0.0, Immature Granulocyte # (Auto) 0.1, Sodium Level 139, Potassium Level 2.8L, Chloride Level 100, Carbon Dioxide Level 26, Anion Gap 13, Blood Urea Nitrogen 14, Creatinine 0.78, Estimat Glomerular Filtration Rate > 60, BUN/Creatinine Ratio 18, Glucose Level 157H, Calcium Level 8.8, Troponin I 0.757*H, Phosphorus Level 4.1, Magnesium Level 2.2 07/03/20 12:09: Glucometer 141H Microbiology 07/02/20 Urine Culture - Preliminary, Resulted A/P-Cardiology Assessment/Admission Diagnosis Marked leucocytosis of undetermined etiology, managed by Dr Kelley Carrero (probably of sigmoid colonic origin, based on CT abd of 07/02/20) managed by Dr Benson PAF with RVR diagnosed on 07/02/20 (also h/o a similar episode during hosp at [facility] in or around 2016). Currently NSR Mild elevation of troponin, likely type 2 MO due to a long episode of A Fib with vent rate around 180 Psoriasis Hypokalemia, likely from GI losses. Hypokalemia probably promoting PAF Discussion and Recomendations * Correct electrolytes * Oral, long-acting dilt for vent rate control during PAF * Start apixaban for stroke prophylaxis after the source of GI bleed has been found and treated * I answered her and her 's heart-related questions in detail * Monitor labs AMRIK ARCHULETA MD FACP FAC CCDS Jul 03, 2020 13:11
[2020-07-03] MEDS: MAGIC MOUTHWASH (ADULT) PO SCH ×16 (13:56→22:59)
[2020-07-03] MEDS ORDERED: MAGNESIUM CITRATE 300 ML BTL PO NR (18:00)
--- NOTE | 2020-07-03 23:14 | Progress Note-Pre Operative ---
Pre-Operative Progress Note H&P Reviewed The H&P was reviewed, patient examined and no changes noted. Date Seen by Provider: Jul 03, 2020 Time Seen by Provider: 23:00 Date H&P Reviewed: Jul 03, 2020 Time H&P Reviewed: 23:00 Pre-Operative Diagnosis: rectal bleed, emilia-ANAHI Sheth MD Jul 03, 2020 23:14
[2020-07-04] VITALS (8 sets, daily range): BP systolic 98–130; BP diastolic 53–60
[2020-07-04] MEDS: metroNIDAZOLE 500 MG/100 ML IVPB (PRE-MIX) IV SCH ×3 (01:02→17:31)
[2020-07-04 06:05] LABS: BASOPHILS % (AUTO) 0 % (0-10); EOSINOPHILS # (AUTO) 0.2 10^3/uL (0.0-0.3); EOSINOPHILS % (AUTO) 1 % (0-10); HEMATOCRIT 29 % (35-52); HEMOGLOBIN 8.9 g/dL (11.5-16.0); LYMPHOCYTES # (AUTO) 1.3 10^3/uL (1.0-4.0); LYMPHOCYTES % (AUTO) 11 % (12-44); MEAN CORPUSCULAR HEMOGLOBIN 22 pg (25-34); MEAN CORPUSCULAR HGB CONC 30 g/dL (32-36); MEAN CORPUSCULAR VOLUME 72 fL (80-99); MEAN PLATELET VOLUME 8.9 fL (9.0-12.2); MONOCYTES # (AUTO) 1.1 10^3/uL (0.0-1.0); MONOCYTES % (AUTO) 10 % (0-12); NEUTROPHILS # (AUTO) 8.6 10^3/uL (1.8-7.8); NEUTROPHILS % (AUTO) 77 % (42-75); PLATELET COUNT 377 10^3/uL (130-400); WHITE BLOOD COUNT 11.2 10^3/uL (4.3-11.0)
[2020-07-04 06:09] LABS: CHLORIDE 106 MMOL/L (98-107); SODIUM 141 MMOL/L (135-145)
[2020-07-04 06:11] LABS: CALCIUM 7.6 MG/DL (8.5-10.1); GLUCOSE 129 MG/DL (70-105)
[2020-07-04 06:13] LABS: CARBON DIOXIDE 26 MMOL/L (21-32)
[2020-07-04 06:15] LABS: CREATININE SERUM 0.67 MG/DL (0.60-1.30); GFR ESTIMATED > 60; PHOSPHORUS 2.2 MG/DL (2.3-4.7)
[2020-07-04 06:16] LABS: BUN/CREATININE RATIO 9
[2020-07-04] MEDS: inSUlin ASPART (NovoLOG) 1 UNIT/0.01 ML (CHARGE PER UNIT) SC SCH ×4 (06:16→20:05)
[2020-07-04 06:17] LABS: MAGNESIUM 2.6 MG/DL (1.6-2.4)
[2020-07-04 06:31] LABS: POTASSIUM 2.4 MMOL/L (3.6-5.0)
[2020-07-04] MEDS ORDERED: POTASSIUM CL 10MEQ/50ML IVPB 50 ML IV ONE (06:35)
[2020-07-04] MEDS: POTASSIUM CL 10MEQ/50ML IVPB 50 ML IV SCH ×4 (06:41→18:27)
[2020-07-04] MEDS: D5 1/2 NS 1000 ML IV SOLUTION 1,000 ML IV SCH ×2 (06:42→08:03)
[2020-07-04] MEDS: LEVOFLOXACIN 750 MG/D5W 150 ML PRE-MIX IV SCH (08:57)
[2020-07-04] MEDS: MAGIC MOUTHWASH (ADULT) PO SCH ×16 (09:00→20:53)
[2020-07-04] MEDS ORDERED: LIDOCAINE JELLY 2% 6 ML SYRINGE ONE (09:16)
[2020-07-04] MEDS ORDERED: LACTATED RINGERS 1,000 ML IV ONE ×2 (09:18→10:15)
[2020-07-04] MEDS ORDERED: LIDOCAINE JELLY 2% 6 ML SYRINGE TOP ONE (10:15)
[2020-07-04] MEDS ORDERED: MIDAZOLAM 2 MG/2 ML (VERSED) VIAL ONE (10:47)
[2020-07-04] MEDS ORDERED: PROPOFOL INJECTION 50 ML IV ONE (10:47)
[2020-07-04] MEDS ORDERED: GLYCOPYRROLATE 0.2 MG/ML (ROBINUL) 2 ML VIAL ONE (11:07)
--- NOTE | 2020-07-04 11:25 | Progress Note - Hospitalist ---
MARY CASTANEDA,MED STUDENT 07/04/20 1125: Subjective HPI/CC On Admission Date Seen by Provider: Jul 04, 2020 Subjective/Events-last exam No new concerns today. Completed bowel prep and will have colonoscopy this morning. Focused Exam Lactate Level 07/02/20 21:18: Lactic Acid Level 1.87 Objective Exam Vital Signs Vital Signs Date Time Temp Pulse Resp B/P (MAP) Pulse Ox O2 Delivery O2 Flow Rate FiO2 07/04/20 08:06 Room Air 07/04/20 08:04 36.4 97 16 119/58 (78) 98 Capillary Refill : Greater Than 3 Seconds General Appearance: No Apparent Distress, WD/WN HEENT: PERRL/EOMI, Pharynx Normal Respiratory: Lungs Clear, No Accessory Muscle Use, No Respiratory Distress Cardiovascular: Regular Rate, Rhythm, No Murmur, Normal Peripheral Pulses Gastrointestinal: Non Tender, Soft Extremity: Normal Capillary Refill, No Calf Tenderness, No Pedal Edema Neurologic/Psychiatric: Alert, Oriented x3, Normal Mood/Affect Skin: Normal Color, Warm/Dry Results/Procedures Lab Laboratory Tests 07/04/20 05:45 Patient resulted labs reviewed. Assessment/Plan Assessment and Plan Assess & Plan/Chief Complaint A-fib with RVR Currently off Cardizem Cardiology consulted EF 55-60%, grade 1 diastolic dysfunction per echo 07/03 Colitis Surgery consulted On Levaquin and Flagyl Planning for colonoscopy today Hypokalemia Completed bowel prep overnight Continue to replace Repeat labs tomorrow T2DM Diet controlled at home Monitor RACHEL BENSON MD 07/04/20 1431: Subjective HPI/CC On Admission Time Seen by Provider: 09:10 Assessment/Plan Assessment and Plan Assess & Plan/Chief Complaint Pt reports having a rough night with her bowel prep and not getting much sleep. Otherwise no complaints. Discussed plan for colonscopy today and further plans could follow that. Replaced potassium this AM. Trend. Will place on protocol. Continue to hold anticoagulation still. Supervisory-Addendum Brief Verification & Attestation Participated in pt care: history, MDM, physical Personally performed: exam, history, MDM, supervision of care Care discussed with: Medical Student Procedures: n/a Results interpretation: Verified all documentation Verification and Attestation of Medical Student E/M Service A medical student performed and documented this service in my presence. I reviewed and verified all information documented by the medical student and made modifications to such information, when appropriate. I personally performed the physical exam and medical decision making. Rachel Benson, Jul 04, 2020,14:26 MARY CASTANEDA,MED STUDENT Jul 04, 2020 11:25 RACHEL BENSON MD Jul 04, 2020 14:31
--- NOTE | 2020-07-04 11:50 | Progress Note-Post Operative ---
Post-Operative Progess Note Surgeon (s)/Hand Mounter (s) Surgeon Dr. Seferino Amanda M.D. Hand Mounter: None Pre-Operative Diagnosis rectal bleed, a-fib Post-Operative Diagnosis Internal and external hemorrhoids between stage II-III, rectal mass 5 cm from anal verge, moderate sigmoid diverticulosis Procedure & Operative Findings Date of Procedure 07/04/20 Procedure Performed/Findings Colonoscopy with biopsy and submucosal injection Anesthesia Type MAC Estimated Blood Loss Estimated blood loss (mL): Minimal Specimens/Packing Specimens Removed 1) Rectal Mass JAIME DANIELS PROGRAM ARCHITECT Jul 04, 2020 11:50
--- NOTE | 2020-07-04 12:19 | Progress Note - Cardiology ---
Cardiology SOAP Progress Note Subjective: No cp or palp or syncope Gen malaise as before No shortness of breath at rest No focal weakness Objective: I&O/Vital Signs 07/04/20 07/04/20 07/04/20 07/04/20 01:00 04:02 07:00 08:04 Temp 36.7 36.4 Pulse 76 84 67 97 Resp 18 16 B/P (MAP) 98/55 (69) 119/58 (78) Pulse Ox 98 98 O2 Delivery Room Air Room Air 07/04/20 07/04/20 07/04/20 07/04/20 08:06 11:25 11:30 11:35 Pulse 71 72 75 Resp 16 16 18 Pulse Ox 98 98 97 O2 Delivery Room Air Room Air Room Air Room Air 07/04/20 11:53 Temp 35.9 Pulse 81 Resp 20 B/P (MAP) 130/60 (83) Pulse Ox 100 O2 Delivery Room Air 07/04/20 00:00 Intake Total 900 ml Balance 900 ml Constitutional: AAO x 3, well-developed, well-nourished Respiratory: No accessory muscle use; other (fair to good, bilat air entry, diminished at the bases) Cardiovascular: regular rate-rhythm, S1 and S2, systolic murmur (soft STEPHANIE at card base) Gastrointestional: No tender; soft; No guarding, No rebound; audible bowel sounds Extremities: No clubbing, No cyanosis, No significant edema Neurologic/Psychiatric: oriented x 3, other (moves all limbs equally) Skin: No rash on exposed areas, No ulcerations on exposed areas Results/Procedures: Labs Laboratory Tests 07/03/20 16:01: Glucometer 117H 07/03/20 21:03: Glucometer 146H 07/04/20 05:36: Glucometer 130H 07/04/20 05:45: White Blood Count 11.2H, Red Blood Count 4.08, Hemoglobin 8.9L, Hematocrit 29L, Mean Corpuscular Volume 72L, Mean Corpuscular Hemoglobin 22L, Mean Corpuscular Hemoglobin Concent 30L, Red Cell Distribution Width 18.1H, Platelet Count 377, Mean Platelet Volume 8.9L, Immature Granulocyte % (Auto) 1, Neutrophils (%) (Auto) 77H, Lymphocytes (%) (Auto) 11L, Monocytes (%) (Auto) 10, Eosinophils (%) (Auto) 1, Basophils (%) (Auto) 0, Neutrophils # (Auto) 8.6H, Lymphocytes # (Auto) 1.3, Monocytes # (Auto) 1.1H, Eosinophils # (Auto) 0.2, Basophils # (Auto) 0.0, Immature Granulocyte # (Auto) 0.1, Sodium Level 141, Potassium Level 2.4*L, Chloride Level 106, Carbon Dioxide Level 26, Anion Gap 9, Blood Urea Nitrogen 6L, Creatinine 0.67, Estimat Glomerular Filtration Rate > 60, BUN/Creatinine Ratio 9, Glucose Level 129H, Calcium Level 7.6L, Phosphorus Level 2.2L, Magnesium Level 2.6H 07/04/20 09:20: Coronavirus 2019 ([facility]) Negative 07/04/20 11:57: Glucometer 92 Microbiology 07/02/20 Urine Culture - Final, Complete NO GROWTH Laboratory Tests 07/02/20 20:37 07/03/20 03:40 07/04/20 05:45 A/P: Assessment: Hemotchezia due to rectal mass (diagnosed on endoscopy of 07/04/20) Leucocytosis of undetermined etiology, managed by Dr Benson PAF with RVR diagnosed on 07/02/20 (also h/o a similar episode during hosp at [facility] in or around 2016). Currently NSR Mild elevation of troponin, likely type 2 ND due to a long episode of A Fib with vent rate around 180 Psoriasis Hypokalemia, likely from GI losses. Hypokalemia probably promoting PAF Plan: * Correct electrolytes * Continue oral, long-acting dilt for vent rate control during PAF * Start apixaban for stroke prophylaxis after the source of GI bleed has been found and treated * Monitor labs AMRIK ARCHULETA MD [facility] CCDS Jul 04, 2020 12:19
[2020-07-04] MEDS: VALACYCLOVIR 500 MG TAB (VALTREX) PO SCH (12:55)
[2020-07-04] MEDS: FLUoxetine HCL 20 MG (PROzac) CAP PO SCH (12:55)
--- NOTE | 2020-07-04 13:38 | Anesthesia-General Post-Op ---
MAC Patient Condition Mental Status/LOC: Same as Preop Cardiovascular: Satisfactory Nausea/Vomiting: Absent Respiratory: Satisfactory Pain: Controlled Complications: Absent Post Op Complications Complications None Follow Up Care/Instructions Patient Instructions None needed. Anesthesiology Discharge Order Discharge Order Patient is doing well, no complaints, stable vital signs, no apparent adverse anesthesia problems. No complications reported per nursing. AVA VILLASENOR CRNA Jul 04, 2020 13:38
--- NOTE | 2020-07-04 15:44 | OPERATIVE REPORT ---
DATE OF SERVICE: 07/04/2020 ATTENDING PRIMARY CARE PHYSICIAN: Dr. Erazo. PREOPERATIVE DIAGNOSIS: Rectal bleeding for the past two years. POSTOPERATIVE DIAGNOSES: 1. Large rectal mass, which is oval in shape and long with the distal portion of the mass approximately 5 cm from the anal verge. 2. Chronic between stage II and III external and internal hemorrhoids as well as a moderate sigmoid diverticulosis. PROCEDURE PERFORMED: Colonoscopy with biopsy and submucosal injection. SURGEON: Anahi Mack MD. ANESTHESIA: Monitored anesthesia care. ESTIMATED BLOOD LOSS: Minimal. FINDINGS: 1. Large rectal mass, which is oval in shape and long with the distal portion of the mass approximately 5 cm from the anal verge and approximately 5cm in length. The lesion is not obstructing and consistent with carcinoma. 2. Chronic between stage II and III external and internal hemorrhoids as well as a moderate sigmoid diverticulosis. DISPOSITION: The patient tolerated the procedure well. INDICATIONS FOR PROCEDURE: The patient is a 74-year-old female who presented to the emergency department with heart palpitations and was found initially to be in atrial fibrillation; however, converted on her own. She states that she did have one episode before when she was admitted at [facility] for what sounds to be psoriatic arthritis. She reports that she has had rectal bleeding now for two years, which used to be less frequent; however, in the past several months, this has become almost a daily occurrence. She also does report a 60-pound weight loss. DESCRIPTION OF PROCEDURE: The patient was brought to the endoscopy suite and laid in a left lateral decubitus position. After adequate IV pain and sedative medications and monitored anesthesia care, a digital rectal examination was performed. Acute on chronic between stage II and III external and internal hemorrhoids identified with some irritation of an external hemorrhoidal cushion. Normal sphincter tone was felt and there was a palpable mass at approximately 5 cm from the anal verge. The endoscope was then intubated and anus and rectum gently insufflated. A frond-like mass, which was oblong in shape and long, was identified. This is likely a carcinoma. The lesion was approximately 5cm from the anal verge and 5cm in lenght. Multiple biopsies were taken with forceps with visualization of good hemostasis. We also proceeded with submucosal black ink injection just proximal and distal to the lesion. The endoscope was then advanced through the sigmoid colon, where moderate sigmoid diverticulosis was identified. The endoscope was then advanced to the remainder of the descending, transverse and ascending colon to the cecum. These segments were normal. There were no other lesions identified. The endoscope was then slowly withdrawn while taking a second look and suctioning of residual air with no additional findings. The patient tolerated the procedure well. We will await the biopsy results; however, this is worrisome for malignancy and would likely need chemoradiation to downsize the tumor as well as a resection; however, this is close to the anal verge and if she does proceed with surgery, we would have to reevaluate the distance from the anal verge and see if a low anterior resection is feasible. If not, then she may need an abdominoperineal resection, which in that case, we would refer her to a tertiary center. Job ID: [id number] DocumentID: [id number] Dictated Date: 07/04/2020 11:29:59 Pluck Trimmer Date: 07/04/2020 15:42:57 Dictated By: ANAHI MACK MD MTDD
[2020-07-04 22:39] LABS: CHLORIDE 106 MMOL/L (98-107); POTASSIUM 2.9 MMOL/L (3.6-5.0); SODIUM 140 MMOL/L (135-145)
[2020-07-04 22:40] LABS: CALCIUM 7.4 MG/DL (8.5-10.1); GLUCOSE 123 MG/DL (70-105)
[2020-07-04 22:42] LABS: CARBON DIOXIDE 26 MMOL/L (21-32)
[2020-07-04 22:44] LABS: CREATININE SERUM 0.67 MG/DL (0.60-1.30); GFR ESTIMATED > 60
[2020-07-04 22:45] LABS: BUN/CREATININE RATIO 6
[2020-07-04] MEDS ORDERED: MELATONIN 10 MG TABLET PO PRN (22:49)
[2020-07-04] MEDS ORDERED: MELATONIN 3 MG TABLET ONE (22:59)
[2020-07-04] MEDS: MELATONIN 3 MG TABLET PO PRN (23:11)
[2020-07-05] VITALS: BP 119/56
[2020-07-05] MEDS: metroNIDAZOLE 500 MG/100 ML IVPB (PRE-MIX) IV SCH ×3 (00:53→18:13)
[2020-07-05 04:00] VITALS: BP 110/54
[2020-07-05] MEDS ORDERED: D5 1/2 NS 1000 ML IV SOLUTION 0 ML IV ONE (04:06)
[2020-07-05 05:17] LABS: BASOPHILS % (AUTO) 0 % (0-10); EOSINOPHILS # (AUTO) 0.2 10^3/uL (0.0-0.3); EOSINOPHILS % (AUTO) 2 % (0-10); HEMATOCRIT 30 % (35-52); LYMPHOCYTES % (AUTO) 16 % (12-44); MEAN CORPUSCULAR HEMOGLOBIN 22 pg (25-34); MEAN CORPUSCULAR HGB CONC 30 g/dL (32-36); MEAN CORPUSCULAR VOLUME 73 fL (80-99); MONOCYTES # (AUTO) 1.1 10^3/uL (0.0-1.0); MONOCYTES % (AUTO) 9 % (0-12); NEUTROPHILS # (AUTO) 9.2 10^3/uL (1.8-7.8); NEUTROPHILS % (AUTO) 73 % (42-75); PLATELET COUNT 388 10^3/uL (130-400); WHITE BLOOD COUNT 12.6 10^3/uL (4.3-11.0)
[2020-07-05 05:26] LABS: CHLORIDE 108 MMOL/L (98-107); SODIUM 142 MMOL/L (135-145)
[2020-07-05 05:27] LABS: CALCIUM 7.7 MG/DL (8.5-10.1)
[2020-07-05 05:28] LABS: GLUCOSE 99 MG/DL (70-105)
[2020-07-05 05:29] LABS: CARBON DIOXIDE 25 MMOL/L (21-32)
[2020-07-05 05:31] LABS: PHOSPHORUS 2.4 MG/DL (2.3-4.7)
[2020-07-05 05:32] LABS: BUN/CREATININE RATIO 6; CREATININE SERUM 0.69 MG/DL (0.60-1.30); GFR ESTIMATED > 60
[2020-07-05] MEDS: KCL 20 MEQ TAB (K-DUR) PO SCH (05:33)
[2020-07-05] MEDS: POTASSIUM CL 10MEQ/50ML IVPB 50 ML IV SCH (05:33)
[2020-07-05 05:34] LABS: MAGNESIUM 2.5 MG/DL (1.6-2.4)
[2020-07-05] MEDS: inSUlin ASPART (NovoLOG) 1 UNIT/0.01 ML (CHARGE PER UNIT) SC SCH ×4 (05:34→20:11)
[2020-07-05] MEDS: MAGNESIUM 1 GM/100 ML IVPB 100 ML IV SCH (05:35)
[2020-07-05] MEDS ORDERED: KCL 20 MEQ TAB (K-DUR) PO ONE ×3 (06:00→10:00)
[2020-07-05 07:41] VITALS: BP 114/59
[2020-07-05] MEDS: VALACYCLOVIR 500 MG TAB (VALTREX) PO SCH (08:16)
[2020-07-05] MEDS: LEVOFLOXACIN 750 MG/D5W 150 ML PRE-MIX IV SCH (08:17)
[2020-07-05] MEDS: FLUoxetine HCL 20 MG (PROzac) CAP PO SCH (08:17)
[2020-07-05] MEDS: MAGIC MOUTHWASH (ADULT) PO SCH ×16 (08:18→20:47)
--- NOTE | 2020-07-05 09:48 | Progress Note - Cardiology ---
Cardiology SOAP Progress Note Objective: I&O/Vital Signs 07/06/20 07/06/20 07/06/20 07/06/20 00:17 01:00 04:59 07:00 Temp 36.2 36.2 Pulse 65 60 61 60 Resp 18 16 B/P (MAP) 100/66 (77) 118/66 (83) Pulse Ox 98 97 O2 Delivery Room Air Room Air 07/06/20 07/06/20 07/06/20 08:00 08:00 09:13 Temp 36.1 Pulse 63 Resp 20 B/P (MAP) 107/59 (75) Pulse Ox 99 98 O2 Delivery Room Air Room Air Room Air 07/06/20 00:00 Intake Total 650 ml Balance 650 ml Constitutional: AAO x 3, well-developed, well-nourished Respiratory: No accessory muscle use; other (fair to good, bilat air entry, diminished at the bases) Cardiovascular: regular rate-rhythm, S1 and S2, systolic murmur (soft STEPHANIE at card base) Gastrointestional: No tender; soft; No guarding, No rebound; audible bowel sounds Extremities: No clubbing, No cyanosis, No significant edema Neurologic/Psychiatric: oriented x 3, other (moves all limbs equally) Skin: No rash on exposed areas, No ulcerations on exposed areas Results/Procedures: Labs Laboratory Tests 07/05/20 11:12: Glucometer 89 07/05/20 14:05: Sodium Level 141, Potassium Level 4.1, Chloride Level 109H, Carbon Dioxide Level 25, Anion Gap 7, Blood Urea Nitrogen 8, Creatinine 0.69, Estimat Glomerular Filtration Rate > 60, BUN/Creatinine Ratio 12, Glucose Level 134H, Calcium Level 7.6L 07/05/20 15:35: Glucometer 95 07/05/20 19:56: Glucometer 160H 07/06/20 05:23: White Blood Count 10.5, Red Blood Count 3.96, Hemoglobin 8.6L, Hematocrit 29L, Mean Corpuscular Volume 73L, Mean Corpuscular Hemoglobin 22L, Mean Corpuscular Hemoglobin Concent 30L, Red Cell Distribution Width 19.1H, Platelet Count 348, Mean Platelet Volume 9.1, Immature Granulocyte % (Auto) 0, Neutrophils (%) (Auto) 68, Lymphocytes (%) (Auto) 20, Monocytes (%) (Auto) 9, Eosinophils (%) (Auto) 2, Basophils (%) (Auto) 0, Neutrophils # (Auto) 7.2, Lymphocytes # (Auto) 2.1, Monocytes # (Auto) 1.0, Eosinophils # (Auto) 0.3, Basophils # (Auto) 0.0, Immature Granulocyte # (Auto) 0.0, Sodium Level 141, Potassium Level 4.6, Chloride Level 111H, Carbon Dioxide Level 22, Anion Gap 8, Blood Urea Nitrogen 7, Creatinine 0.65, Estimat Glomerular Filtration Rate > 60, BUN/Creatinine Ratio 11, Glucose Level 92, Calcium Level 7.7L, Phosphorus Level 2.0L, Magnesium Level 2.1 Microbiology 07/02/20 Urine Culture - Final, Complete NO GROWTH 07/02/20 Blood Culture - Preliminary, Resulted No growth A/P: Assessment: Hemotchezia due to rectal mass (diagnosed on endoscopy of 07/04/20) Leucocytosis of undetermined etiology, managed by Dr Benson PAF with RVR diagnosed on 07/02/20 (also h/o a similar episode during hosp at [facility] in or around 2016). Currently NSR Mild elevation of troponin, likely type 2 [place] due to a long episode of A Fib with vent rate around 180 Psoriasis Hypokalemia, likely from GI losses. Hypokalemia probably promoting PAF Plan: * Correct electrolytes * Continue oral, long-acting dilt for vent rate control during PAF * Start apixaban for stroke prophylaxis after the source of GI bleed has been found and treated * Monitor labs MELLO TELLO Jul 05, 2020 09:48
[2020-07-05] MEDS: CHOLESTYRAMINE 4 GM (QUESTRAN LITE, PREVALITE) PKT PO SCH (10:45)
[2020-07-05] MEDS ORDERED: FLUO20CA46 PO (10:57)
[2020-07-05 11:20] VITALS: BP 105/70
--- NOTE | 2020-07-05 11:21 | Progress Note - Cardiology ---
Cardiology SOAP Progress Note Subjective: Gen malaise and weakness No cp or palp or syncope or shortness of breath at rest No focal weakness No n/v/d Objective: I&O/Vital Signs 07/05/20 07/05/20 07/05/20 07/05/20 00:00 01:00 04:00 06:32 Temp 36.6 36.5 Pulse 60 71 65 66 Resp 16 18 B/P (MAP) 119/56 (77) 110/54 (72) Pulse Ox 98 97 O2 Delivery Room Air Room Air 07/05/20 07:41 Temp 36.6 Pulse 56 Resp 18 B/P (MAP) 114/59 (77) Pulse Ox 99 O2 Delivery Room Air 07/05/20 00:00 Intake Total 1125 ml Balance 1125 ml Constitutional: AAO x 3, well-developed, well-nourished Respiratory: No accessory muscle use; other (fair to good, bilat air entry, diminished at the bases) Cardiovascular: regular rate-rhythm, S1 and S2, systolic murmur (soft STEPHANIE at card base) Gastrointestional: No tender; soft; No guarding, No rebound; audible bowel sounds Extremities: No clubbing, No cyanosis, No significant edema Neurologic/Psychiatric: oriented x 3, other (moves all limbs equally) Skin: No rash on exposed areas, No ulcerations on exposed areas Results/Procedures: Labs Laboratory Tests 07/04/20 11:57: Glucometer 92 07/04/20 15:16: Glucometer 133H 07/04/20 19:58: Glucometer 132H 07/04/20 22:24: Sodium Level 140, Potassium Level 2.9L, Chloride Level 106, Carbon Dioxide Level 26, Anion Gap 8, Blood Urea Nitrogen 4L, Creatinine 0.67, Estimat Glomerular Filtration Rate > 60, BUN/Creatinine Ratio 6, Glucose Level 123H, Calcium Level 7.4L 07/05/20 05:01: White Blood Count 12.6H, Red Blood Count 4.10, Hemoglobin 9.0L, Hematocrit 30L, Mean Corpuscular Volume 73L, Mean Corpuscular Hemoglobin 22L, Mean Corpuscular Hemoglobin Concent 30L, Red Cell Distribution Width 18.5H, Platelet Count 388, Mean Platelet Volume 9.0, Immature Granulocyte % (Auto) 1, Neutrophils (%) (Auto) 73, Lymphocytes (%) (Auto) 16, Monocytes (%) (Auto) 9, Eosinophils (%) (Auto) 2, Basophils (%) (Auto) 0, Neutrophils # (Auto) 9.2H, Lymphocytes # (Auto) 2.0, Monocytes # (Auto) 1.1H, Eosinophils # (Auto) 0.2, Basophils # (Auto) 0.0, Immature Granulocyte # (Auto) 0.1, Sodium Level 142, Potassium Level 3.0L, Chloride Level 108H, Carbon Dioxide Level 25, Anion Gap 9, Blood Urea Ni trogen 4L, Creatinine 0.69, Estimat Glomerular Filtration Rate > 60, BUN/Creatinine Ratio 6, Glucose Level 99, Calcium Level 7.7L, Phosphorus Level 2.4, Magnesium Level 2.5H Microbiology 07/02/20 Urine Culture - Final, Complete NO GROWTH 07/02/20 Blood Culture - Preliminary, Resulted No growth Laboratory Tests 07/04/20 05:45 07/04/20 22:24 07/05/20 05:01 A/P: Assessment: Hemotchezia due to rectal mass that is large and suspected to be a carcinoma (diagnosed on endoscopy of 07/04/20) Leucocytosis of undetermined etiology, managed by Dr Kelley MATTHEWS with RVR diagnosed on 07/02/20 (also h/o a similar episode during hosp at [facility] in or around 2017). Currently NSR Mild elevation of troponin, likely type 2 [place] due to a long episode of A Fib with vent rate around 180 Psoriasis Hypokalemia, likely from GI losses. Hypokalemia probably promoting PAF Plan: * Complex management due to multiple comorbidities, including PAF (that requires anticoagulation therapy) and active GI bleed (that requires avoidance of anticoagulation therapy) * [place] would be to treat/remove source of GI bleed and then start anticoag. However, pt and her are not sure if they want any surgical intervention. I had a long and detailed discussion with them and explained to them, amongst other things, why anticoag is recommended for Ms. Shaw (CHADSVASC score 2-3) if there weren't any contraindications. * Correct electrolytes. Still appears to have a K deficit of 100 mEq or more (based on labs of yesterday and this morning) * Continue oral, long-acting dilt for vent rate control during PAF * Monitor labs AMRIK ARCHULETA MD FACP FAC CCDS Jul 05, 2020 11:21
[2020-07-05] MEDS ORDERED: METR500T PO (12:28)
[2020-07-05] MEDS ORDERED: LEVO500T80 PO (12:28)
[2020-07-05] MEDS ORDERED: KCL 20 MEQ TAB (K-DUR) PO NR (13:00)
[2020-07-05 14:23] LABS: CHLORIDE 109 MMOL/L (98-107); POTASSIUM 4.1 MMOL/L (3.6-5.0); SODIUM 141 MMOL/L (135-145)
[2020-07-05 14:24] LABS: CALCIUM 7.6 MG/DL (8.5-10.1); GLUCOSE 134 MG/DL (70-105)
[2020-07-05 14:26] LABS: CARBON DIOXIDE 25 MMOL/L (21-32)
[2020-07-05 14:28] LABS: CREATININE SERUM 0.69 MG/DL (0.60-1.30); GFR ESTIMATED > 60
[2020-07-05 14:29] LABS: BUN/CREATININE RATIO 12
[2020-07-05] MEDS ORDERED: DILT120C47 PO (15:25)
[2020-07-05] MEDS ORDERED: dilTIAZem120 MG (CARDIZEM CD) CAP PO ONE (15:30)
--- NOTE | 2020-07-05 17:24 | Progress Note ---
Subjective Date Seen by a Provider: Jul 05, 2020 Time Seen by a Provider: 17:00 Subjective/Events-last exam doing ok. minimal rectal bleed. tolerating diet. no pain. no palpitations. Focused Exam Lactate Level 07/02/20 21:18: Lactic Acid Level 1.87 Objective Exam Vital Signs Date Time Temp Pulse Resp B/P (MAP) Pulse Ox O2 Delivery O2 Flow Rate FiO2 07/05/20 16:02 35.9 07/05/20 12:15 96 07/05/20 11:20 36.0 79 20 105/70 (82) 100 Room Air 07/05/20 08:00 Room Air 07/05/20 07:41 36.6 56 18 114/59 (77) 99 Room Air 07/05/20 06:32 66 07/05/20 04:00 36.5 65 18 110/54 (72) 97 Room Air 07/05/20 01:00 71 07/05/20 00:00 36.6 60 16 119/56 (77) 98 Room Air 07/04/20 20:31 Room Air 07/04/20 19:34 36.8 68 16 107/53 (71) 98 Room Air 07/04/20 19:00 87 I & O 07/05/20 07:00 Intake Total 3125 ml Output Total 1500 ml Balance 1625 ml Capillary Refill : Greater Than 3 Seconds General Appearance: No Apparent Distress HEENT: PERRL/EOMI Neck: Full Range of Motion Respiratory: Chest Non Tender, Lungs Clear Cardiovascular: Regular Rate, Rhythm Gastrointestinal: normal bowel sounds, non tender, soft Extremity: Normal Capillary Refill Neurologic/Psychiatric: Alert, Oriented x3 Skin: Normal Color Lymphatic: No Adenopathy Results Lab Laboratory Tests 07/04/20 19:58: Glucometer 132H 07/04/20 22:24: Sodium Level 140, Potassium Level 2.9L, Chloride Level 106, Carbon Dioxide Level 26, Anion Gap 8, Blood Urea Nitrogen 4L, Creatinine 0.67, Estimat Glomerular Filtration Rate > 60, BUN/Creatinine Ratio 6, Glucose Level 123H, Calcium Level 7.4L 07/05/20 05:01: Sodium Level 142, Potassium Level 3.0L, Chloride Level 108H, Carbon Dioxide Level 25, Anion Gap 9, Blood Urea Nitrogen 4L, Creatinine 0.69, Estimat Glomerular Filtration Rate > 60, BUN/Creatinine Ratio 6, Glucose Level 99, Calcium Level 7.7L, White Blood Count 12.6H, Red Blood Count 4.10, Hemoglobin 9.0L, Hematocrit 30L, Mean Corpuscular Volume 73L, Mean Corpuscular Hemoglobin 22L, Mean Corpuscular Hemoglobin Concent 30L, Red Cell Distribution Width 18.5H, Platelet Count 388, Mean Platelet Volume 9.0, Immature Granulocyte % (Auto) 1, Neutrophils (%) (Auto) 73, Lymphocytes (%) (Auto) 16, Monocytes (%) (Auto) 9, Eosinophils (%) (Auto) 2, Basophils (%) (Auto) 0, Neutrophils # (Auto) 9.2H, Lymphocytes # (Auto) 2.0, Monocytes # (Auto) 1.1H, Eosinophils # (Auto) 0.2, Basophils # (Auto) 0.0, Immature Granulocyte # (Auto) 0.1, Phosphorus Level 2.4, Magnesium Level 2.5H 07/05/20 11:12: Glucometer 89 07/05/20 14:05: Sodium Level 141, Potassium Level 4.1, Chloride Level 109H, Carbon Dioxide Level 25, Anion Gap 7, Blood Urea Nitrogen 8, Creatinine 0.69, Estimat Glomerular Filtration Rate > 60, BUN/Creatinine Ratio 12, Glucose Level 134H, Calcium Level 7.6L 07/05/20 15:35: Glucometer 95 Microbiology 07/02/20 Urine Culture - Final, Complete NO GROWTH 07/02/20 Blood Culture - Preliminary, Resulted No growth Assessment/Plan Assessment/Plan Assess & Plan/Chief Complaint large rectal lesion suspicious for malignancy with rectal bleed. at this time patient is refusing chemotherapy or radiation. diet as tolerated. may f/u for further evaluation and workup at any time. ANAHI MACK MD Jul 05, 2020 17:24
[2020-07-05 19:44] VITALS: BP 111/65
[2020-07-05] MEDS: MELATONIN 3 MG TABLET PO PRN (20:47)
[2020-07-06 00:17] VITALS: BP 100/66
[2020-07-06] MEDS: metroNIDAZOLE 500 MG/100 ML IVPB (PRE-MIX) IV SCH (01:40)
[2020-07-06 04:59] VITALS: BP 118/66
[2020-07-06 05:46] LABS: BASOPHILS % (AUTO) 0 % (0-10); EOSINOPHILS # (AUTO) 0.3 10^3/uL (0.0-0.3); EOSINOPHILS % (AUTO) 2 % (0-10); HEMATOCRIT 29 % (35-52); HEMOGLOBIN 8.6 g/dL (11.5-16.0); LYMPHOCYTES # (AUTO) 2.1 10^3/uL (1.0-4.0); LYMPHOCYTES % (AUTO) 20 % (12-44); MEAN CORPUSCULAR HEMOGLOBIN 22 pg (25-34); MEAN CORPUSCULAR HGB CONC 30 g/dL (32-36); MEAN CORPUSCULAR VOLUME 73 fL (80-99); MEAN PLATELET VOLUME 9.1 fL (9.0-12.2); MONOCYTES % (AUTO) 9 % (0-12); NEUTROPHILS # (AUTO) 7.2 10^3/uL (1.8-7.8); NEUTROPHILS % (AUTO) 68 % (42-75); PLATELET COUNT 348 10^3/uL (130-400); WHITE BLOOD COUNT 10.5 10^3/uL (4.3-11.0)
[2020-07-06 05:59] LABS: CHLORIDE 111 MMOL/L (98-107); POTASSIUM 4.6 MMOL/L (3.6-5.0); SODIUM 141 MMOL/L (135-145)
[2020-07-06 06:01] LABS: CALCIUM 7.7 MG/DL (8.5-10.1); GLUCOSE 92 MG/DL (70-105)
[2020-07-06 06:03] LABS: CARBON DIOXIDE 22 MMOL/L (21-32)
[2020-07-06 06:05] LABS: CREATININE SERUM 0.65 MG/DL (0.60-1.30); GFR ESTIMATED > 60
[2020-07-06 06:06] LABS: BUN/CREATININE RATIO 11
[2020-07-06 06:08] LABS: MAGNESIUM 2.1 MG/DL (1.6-2.4)
[2020-07-06] MEDS: POTASSIUM CL 10MEQ/50ML IVPB 50 ML IV SCH (06:08)
[2020-07-06] MEDS: KCL 20 MEQ TAB (K-DUR) PO SCH (06:08)
[2020-07-06] MEDS: inSUlin ASPART (NovoLOG) 1 UNIT/0.01 ML (CHARGE PER UNIT) SC SCH ×4 (06:09→20:39)
[2020-07-06] MEDS: MAGNESIUM 1 GM/100 ML IVPB 100 ML IV SCH (06:09)
[2020-07-06 08:00] VITALS: BP 107/59
[2020-07-06] MEDS ORDERED: IRON DEXTRAN INJECTION 25 MG in NS (IVPB) 5.75 ML IV NR (08:00)
[2020-07-06] MEDS ORDERED: NS IV 500 ML 500 ML IV SCH (08:00)
[2020-07-06] MEDS ORDERED: EPINEPHrine INJECTION 1 MG/ML AMP IM PRN (08:00)
[2020-07-06] MEDS ORDERED: IRON DEXTRAN INJECTION 1,000 MG in NS (IVPB) 250 ML IV NR (08:00)
[2020-07-06] MEDS ORDERED: HYDROCORTISONE 100 MG/2 ML (Solu-CORTEF) VIAL IV PRN (08:00)
[2020-07-06] MEDS ORDERED: diphenhydrAMINE 50 MG/ML INJ (BENADRYL) IV PRN (08:00)
[2020-07-06] MEDS ORDERED: POT PHOS/NA PHOS (K-PHOS NEUTRAL) PO NR (08:00)
[2020-07-06] MEDS ORDERED: RT-ALBUTEROL SULF 2.5 MG/3 ML PRE-MIX VIAL IH PRN (08:00)
[2020-07-06] MEDS: VALACYCLOVIR 500 MG TAB (VALTREX) PO SCH (08:55)
[2020-07-06] MEDS: FLUoxetine HCL 20 MG (PROzac) CAP PO SCH (08:55)
[2020-07-06] MEDS: MAGIC MOUTHWASH (ADULT) PO SCH ×16 (08:57→20:39)
[2020-07-06] MEDS: dilTIAZem120 MG (CARDIZEM CD) CAP PO SCH (09:07)
[2020-07-06] MEDS: FERROUS SULF 325 MG (IRON) TAB PO SCH ×2 (09:08→17:21)
[2020-07-06] MEDS: CHOLESTYRAMINE 4 GM (QUESTRAN LITE, PREVALITE) PKT PO SCH (10:15)
[2020-07-06] MEDS: metroNIDAZOLE 500 MG (FLAGYL) TAB PO SCH ×3 (10:15→20:38)
--- NOTE | 2020-07-06 10:56 | Progress Note - Cardiology ---
Cardiology SOAP Progress Note Objective: I&O/Vital Signs 07/07/20 07/07/20 07/07/20 07/07/20 00:00 01:00 04:00 06:40 Temp 36.4 36.6 Pulse 65 64 57 61 Resp 18 18 B/P (MAP) 107/52 (70) 128/60 (82) Pulse Ox 95 97 O2 Delivery Room Air Room Air 07/07/20 07/07/20 07/07/20 07:20 08:00 08:00 Temp 36.2 Pulse 65 Resp 18 B/P (MAP) 120/57 (78) Pulse Ox 97 O2 Delivery Room Air Room Air Room Air 07/07/20 00:00 Intake Total 1110 ml Balance 1110 ml Constitutional: AAO x 3, well-developed, well-nourished Respiratory: No accessory muscle use; other (fair to good, bilat air entry, diminished at the bases) Cardiovascular: regular rate-rhythm, S1 and S2, systolic murmur (soft STEPHANIE at card base) Gastrointestional: No tender; soft; No guarding, No rebound; audible bowel sounds Extremities: No clubbing, No cyanosis, No significant edema Neurologic/Psychiatric: oriented x 3, other (moves all limbs equally) Skin: No rash on exposed areas, No ulcerations on exposed areas Results/Procedures: Labs Laboratory Tests 07/06/20 11:26: Glucometer 128H 07/06/20 16:16: Glucometer 99 07/06/20 20:32: Glucometer 124H 07/07/20 05:25: White Blood Count 12.6H, Red Blood Count 4.35, Hemoglobin 9.6L, Hematocrit 32L, Mean Corpuscular Volume 73L, Mean Corpuscular Hemoglobin 22L, Mean Corpuscular Hemoglobin Concent 30L, Red Cell Distribution Width 20.0H, Platelet Count 391, Mean Platelet Volume 9.1, Immature Granulocyte % (Auto) 1, Neutrophils (%) (Auto) 74, Lymphocytes (%) (Auto) 14, Monocytes (%) (Auto) 9, Eosinophils (%) (Auto) 3, Basophils (%) (Auto) 0, Neutrophils # (Auto) 9.3H, Lymphocytes # (A uto) 1.8, Monocytes # (Auto) 1.1H, Eosinophils # (Auto) 0.3, Basophils # (Auto) 0.0, Immature Granulocyte # (Auto) 0.1, Sodium Level 141, Potassium Level 3.9, Chloride Level 108H, Carbon Dioxide Level 23, Anion Gap 10, Blood Urea Nitrogen 8, Creatinine 0.71, Estimat Glomerular Filtration Rate > 60, BUN/Creatinine Ratio 11, Glucose Level 96, Calcium Level 8.5, Phosphorus Level 2.8, Magnesium Level 2.0 07/07/20 06:18: Glucometer 85 Microbiology 07/02/20 Urine Culture - Final, Complete NO GROWTH 07/02/20 Blood Culture - Preliminary, Resulted No growth A/P: Assessment: Hemotchezia due to rectal mass that is large and suspected to be a carcinoma (diagnosed on endoscopy of 07/04/20) - management per Dr. Amanda Leucocytosis of undetermined etiology, managed by Dr Benson PAF with RVR diagnosed on 07/02/20 (also h/o a similar episode during hosp at [facility] in or around 2016). Currently NSR Mild elevation of troponin, likely type 2 [place] due to a long episode of A Fib with vent rate around 180 Psoriasis Hypokalemia, likely from GI losses. Hypokalemia probably promoting PAF - resolved Plan: * Complex management due to multiple comorbidities, including PAF (that requires anticoagulation therapy) and active GI bleed (that requires avoidance of anticoagulation therapy) * [place] would be to treat/remove source of GI bleed and then start anticoag. At this time pt and her do not want any surgical intervention, chemo or radiation tx. I * Dr. Rendon has long and detailed discussion with them and explained to them, amongst other things, why anticoag is recommended for Ms. Shaw (CHADSVASC score 2-3) if there weren't any contraindications. * Hypokalemia resolved * Continue oral, long-acting dilt for vent rate control during PAF * Monitor labs MELLO TELLO Jul 06, 2020 10:56
[2020-07-06] MEDS ORDERED: LEVOFLOXACIN 750 MG TAB (LEVAQUIN) PO SCH (11:00)
[2020-07-06 11:36] VITALS: BP 110/67
[2020-07-06] MEDS ORDERED: FERR325T5 PO (12:18)
[2020-07-06 16:00] VITALS: BP 107/58
--- NOTE | 2020-07-06 16:13 | Progress Note-Pre Operative ---
Pre-Operative Progress Note H&P Reviewed The H&P was reviewed, patient examined and no changes noted. Date Seen by Provider: Jul 06, 2020 Time Seen by Provider: 16:00 Date H&P Reviewed: Jul 06, 2020 Time H&P Reviewed: 16:00 Pre-Operative Diagnosis: rectal mucosal adenocarcinoma ANAHI MACK MD Jul 06, 2020 16:12
--- NOTE | 2020-07-06 18:37 | CONSULTATION REPORT ---
DATE OF SERVICE: 07/06/2020 PHYSICIAN REQUESTING CONSULTATION: Yanira Buck MD The patient is admitted to room 419. IMPRESSION/RECOMMENDATION: 1. A 74-year-old female brought to the emergency room with generalized weakness and palpitations. She was noted to be in atrial fibrillation with rapid ventricular response. Currently in sinus rhythm with controlled rate. 2. History of hematochezia and microcytic anemia on presentation. Status post colonoscopy with a large rectal mass reported at 5 cm from the anal verge, which was biopsied. 3. Preliminary pathology report discussed with Dr. Patrick showed at least an intramucosal carcinoma. No muscle tissue present to document invasion. 4. I have discussed this with Dr. Amanda, who will schedule a repeat biopsy tomorrow morning. 5. Scheduled for MRI of the pelvis for staging of rectal cancer as well as CT chest for completion of staging studies. 6. Radiation oncology consultation with Dr. Samaniego for concurrent therapy. 7. We will follow the patient with you and make appropriate recommendations. BRIEF HISTORY: The patient is a 74-year-old female who was brought to the emergency room with palpitations and worsening weakness. She was found to be in atrial fibrillation with rapid ventricular response and treated this with help from cardiology. Her rate is controlled and she is in sinus rhythm now. She also gave history of hematochezia and was found to have microcytic anemia. Further workup with endoscopic evaluation showed a large rectal mass at 5 cm from the anal verge and extending at least 5 cm. Biopsies were obtained and a medical oncology consultation was requested for further recommendations. PAST MEDICAL HISTORY: Significant for paroxysmal atrial fibrillation diagnosed approximately 2 years ago during a hospitalization at [facility]. She has a history of psoriasis involving her skin and required steroids in the past on an inpatient basis at . Recently, she had flare up of a few lesions on her lower extremity and was again on a course of steroids before current episode of atrial fibrillation. No other significant medical history. The patient mentioned, she was noted to have high blood sugars while on the steroids requiring insulin during the hospitalization at . She has lost weight since then and her blood sugars are normal with no active treatment. SOCIAL HISTORY: The patient is and lives in [place], [place]. She has four children, 2 sons and 2 daughters. Two of them live in [place], one in [place] and one in [place]. 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 She has been retired for several years. No significant history of tobacco, alcohol or recreational drug use. FAMILY HISTORY: Only significant for her mother who was diagnosed with lung cancer at an elderly age. PHYSICAL EXAMINATION: GENERAL: Today showed an elderly female, thin appearing, awake and oriented, in no acute distress. VITAL SIGNS: Temperature was 35.3 degrees centigrade, pulse rate of 80, respirations 20, blood pressure 110/67 with oxygen saturation of 99% on room air. HEENT: Normocephalic, extraocular muscles intact, conjunctivae pale, oral mucosa moist. NECK: Supple, with no JVD. No cervical, supraclavicular or axillary lymphadenopathy palpable. CHEST: Symmetrical. LUNGS: Fairly clear to auscultation without wheezes or rales. CARDIOVASCULAR: Regular in rate and rhythm. No murmurs or gallops heard. ABDOMEN: Soft, nontender with no hepatosplenomegaly or other masses palpable. EXTREMITIES: Showed no edema. NEUROLOGIC: Grossly intact without focal motor deficits. LABORATORY DATA: CBC done today showed WBC 10.5, hemoglobin 8.6, MCV 73, platelet count 348,000 with neutrophil count 7.2, lymphocyte count 2.1 and monocyte count 1.0. CMP done at the time of admission showed normal electrolytes except potassium level of 2.9, BUN was 15 and creatinine 0.77 with GFR more than 60 mL per minute. Nonfasting glucose was 223. Liver function studies were within normal limits with albumin level of 3.0 and corrected calcium level of 10.0. CT scan of the abdomen and pelvis at the time of admission showed irregular thickening of the sigmoid colon with indeterminate intraluminal hyperdensity, an area of bleeding is suspected. No aneurysmal atherosclerosis, previous cholecystectomy. No lymphadenopathy or liver masses. A large duodenal diverticulum, which is nonobstructing and nonacute. Colonoscopy done on 07/04/2020 showed a large rectal mass along the distal portion at 5 cm from the anal verge and extending at least 5 cm. External and internal hemorrhoids, stage II to III and moderate sigmoid diverticulosis without diverticulitis. Biopsies were obtained. Preliminary pathology report was discussed with Dr. Celina langston who reviewed the slides and informed that this was at least an intramucosal carcinoma as no muscle tissue was visible and hence no evidence of invasion. Thank you for allowing me to participate in this patient's care. I will follow the patient with you and make appropriate recommendations. Job ID: [id number] DocumentID: [id number] Dictated Date: 07/06/2020 16:39:21 Computer Game Designer Date: 07/06/2020 18:36:47 Dictated By: LISA HINOJOSA MD MTDD
--- NOTE | 2020-07-06 20:02 | Progress Note - Hospitalist ---
Subjective HPI/CC On Admission Date Seen by Provider: Jul 05, 2020 Time Seen by Provider: 09:30 Subjective/Events-last exam She is feeling well. She is not having any rectal bleeding. She denies any pain. Objective Exam Vital Signs Vital Signs Date Time Temp Pulse Resp B/P (MAP) Pulse Ox O2 Delivery O2 Flow Rate FiO2 07/06/20 16:00 35.3 71 18 107/58 (74) 96 Room Air Capillary Refill : Greater Than 3 Seconds General Appearance: No Apparent Distress, WD/WN Respiratory: Lungs Clear, Normal Breath Sounds, No Respiratory Distress Cardiovascular: Regular Rate, Rhythm, No Edema, No Murmur Gastrointestinal: Normal Bowel Sounds, Non Tender, Soft Extremity: Normal Inspection, Non Tender, No Pedal Edema Neurologic/Psychiatric: Alert, Oriented x3, No Motor/Sensory Deficits, Normal Mood/Affect Skin: Normal Color, Warm/Dry Results/Procedures Lab Laboratory Tests 07/06/20 05:23 Patient resulted labs reviewed. Assessment/Plan Assessment and Plan Assess & Plan/Chief Complaint Rectal mass Surgery consulted, appreciate assistance Colonoscopy performed and rectal mass identified, biopsies obtained pending Paroxysmal atrial fibrillation Cardiology consulted, appreciate assistance Continue Cardizem No anticoagulation due to rectal mass Colitis Continue Levaquin and Flagyl Hypokalemia Monitor and replace as needed T2DM Diet controlled Monitor Diagnosis/Problems Diagnosis/Problems (1) Rectal mass Status: Acute (2) Paroxysmal atrial fibrillation Status: Acute (3) Colitis Status: Acute (4) Hypokalemia Status: Acute (5) T2DM (type 2 diabetes mellitus) Status: Chronic DIANNE BAE MD Jul 06, 2020 20:02
[2020-07-06 20:07] VITALS: BP 119/56
--- NOTE | 2020-07-06 20:08 | Progress Note - Hospitalist ---
Subjective HPI/CC On Admission Date Seen by Provider: Jul 06, 2020 Time Seen by Provider: 11:00 Subjective/Events-last exam She is feeling well. She has no complaints. Objective Exam Vital Signs Vital Signs Date Time Temp Pulse Resp B/P (MAP) Pulse Ox O2 Delivery O2 Flow Rate FiO2 07/06/20 16:00 35.3 71 18 107/58 (74) 96 Room Air Capillary Refill : Greater Than 3 Seconds General Appearance: No Apparent Distress, WD/WN Respiratory: Lungs Clear, Normal Breath Sounds, No Respiratory Distress Cardiovascular: Regular Rate, Rhythm, No Edema, No Murmur Gastrointestinal: Normal Bowel Sounds, Non Tender, Soft Extremity: Normal Inspection, Non Tender, No Pedal Edema Neurologic/Psychiatric: Alert, Oriented x3, No Motor/Sensory Deficits, Normal Mood/Affect Skin: Normal Color, Warm/Dry Results/Procedures Lab Laboratory Tests 07/06/20 05:23 Patient resulted labs reviewed. Assessment/Plan Assessment and Plan Assess & Plan/Chief Complaint Rectal mass Surgery consulted, appreciate assistance Colonoscopy performed and rectal mass identified, biopsies obtained Oncology consulted, appreciate assistance Biopsies inadequate to determine depth of invasion Planning for repeat biopsy tomorrow Iron deficiency anemia Iron Dextran infusion ordered Begin oral iron supplementation Paroxysmal atrial fibrillation Cardiology consulted, appreciate assistance Continue Cardizem No anticoagulation due to rectal mass Colitis Continue Levaquin and Flagyl Hypokalemia, resolved Hypophosphatemia Monitor and replace as needed T2DM Diet controlled Monitor Diagnosis/Problems Diagnosis/Problems (1) Rectal mass Status: Acute (2) Paroxysmal atrial fibrillation Status: Acute (3) Colitis Status: Acute (4) Hypokalemia Status: Resolved Resolution Date/Time: 07/06/20 @ 20:09 (5) T2DM (type 2 diabetes mellitus) Status: Chronic (6) Hypophosphatemia Status: Acute (7) KELY (iron deficiency anemia) Status: Acute Qualifiers: Iron deficiency anemia type: chronic blood loss Qualified 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
[2020-07-07] VITALS: BP 107/52
[2020-07-07 04:00] VITALS: BP 128/60
[2020-07-07 06:11] LABS: BASOPHILS % (AUTO) 0 % (0-10); EOSINOPHILS # (AUTO) 0.3 10^3/uL (0.0-0.3); EOSINOPHILS % (AUTO) 3 % (0-10); HEMATOCRIT 32 % (35-52); HEMOGLOBIN 9.6 g/dL (11.5-16.0); LYMPHOCYTES # (AUTO) 1.8 10^3/uL (1.0-4.0); LYMPHOCYTES % (AUTO) 14 % (12-44); MEAN CORPUSCULAR HEMOGLOBIN 22 pg (25-34); MEAN CORPUSCULAR HGB CONC 30 g/dL (32-36); MEAN CORPUSCULAR VOLUME 73 fL (80-99); MEAN PLATELET VOLUME 9.1 fL (9.0-12.2); MONOCYTES # (AUTO) 1.1 10^3/uL (0.0-1.0); MONOCYTES % (AUTO) 9 % (0-12); NEUTROPHILS # (AUTO) 9.3 10^3/uL (1.8-7.8); NEUTROPHILS % (AUTO) 74 % (42-75); PLATELET COUNT 391 10^3/uL (130-400); WHITE BLOOD COUNT 12.6 10^3/uL (4.3-11.0)
[2020-07-07 06:28] LABS: CHLORIDE 108 MMOL/L (98-107); POTASSIUM 3.9 MMOL/L (3.6-5.0); SODIUM 141 MMOL/L (135-145)
[2020-07-07 06:29] LABS: CALCIUM 8.5 MG/DL (8.5-10.1)
[2020-07-07 06:30] LABS: GLUCOSE 96 MG/DL (70-105)
[2020-07-07] MEDS: POTASSIUM CL 10MEQ/50ML IVPB 50 ML IV SCH (06:30)
[2020-07-07] MEDS: KCL 20 MEQ TAB (K-DUR) PO SCH (06:30)
[2020-07-07] MEDS: inSUlin ASPART (NovoLOG) 1 UNIT/0.01 ML (CHARGE PER UNIT) SC SCH ×2 (06:30→11:00)
[2020-07-07 06:31] LABS: CARBON DIOXIDE 23 MMOL/L (21-32)
[2020-07-07 06:33] LABS: PHOSPHORUS 2.8 MG/DL (2.3-4.7)
[2020-07-07 06:34] LABS: BUN/CREATININE RATIO 11; CREATININE SERUM 0.71 MG/DL (0.60-1.30); GFR ESTIMATED > 60
[2020-07-07] MEDS: MAGNESIUM 1 GM/100 ML IVPB 100 ML IV SCH (06:39)
[2020-07-07 08:00] VITALS: BP 120/57
[2020-07-07] MEDS: FERROUS SULF 325 MG (IRON) TAB PO SCH (08:00)
[2020-07-07] MEDS: MAGIC MOUTHWASH (ADULT) PO SCH ×8 (08:00→13:27)
[2020-07-07] MEDS: dilTIAZem120 MG (CARDIZEM CD) CAP PO SCH (08:26)
[2020-07-07] MEDS: metroNIDAZOLE 500 MG (FLAGYL) TAB PO SCH ×2 (09:00→13:27)
[2020-07-07] MEDS ORDERED: LEVOFLOXACIN 750 MG/D5W 150 ML PRE-MIX IV SCH (09:00)
[2020-07-07] MEDS: CHOLESTYRAMINE 4 GM (QUESTRAN LITE, PREVALITE) PKT PO SCH (10:00)
--- NOTE | 2020-07-07 10:18 | Progress Note - Cardiology ---
Cardiology SOAP Progress Note Subjective: In bed Spouse at the bedside No c/o CP, palpitations or SOB States she is going to have a scope today for biopsy Objective: I&O/Vital Signs 07/07/20 07/07/20 07/07/20 07/07/20 00:00 01:00 04:00 06:40 Temp 36.4 36.6 Pulse 65 64 57 61 Resp 18 18 B/P (MAP) 107/52 (70) 128/60 (82) Pulse Ox 95 97 O2 Delivery Room Air Room Air 07/07/20 07/07/20 07/07/20 07:20 08:00 08:00 Temp 36.2 Pulse 65 Resp 18 B/P (MAP) 120/57 (78) Pulse Ox 97 O2 Delivery Room Air Room Air Room Air 07/07/20 00:00 Intake Total 1110 ml Balance 1110 ml Constitutional: AAO x 3, well-developed, well-nourished Respiratory: No accessory muscle use; other (fair to good, bilat air entry, diminished at the bases) Cardiovascular: regular rate-rhythm, S1 and S2, systolic murmur (soft STEPHANIE at card base) Gastrointestional: No tender; soft; No guarding, No rebound; audible bowel sounds Extremities: No clubbing, No cyanosis, No significant edema Neurologic/Psychiatric: oriented x 3, other (moves all limbs equally) Skin: No rash on exposed areas, No ulcerations on exposed areas Results/Procedures: Labs Laboratory Tests 07/06/20 11:26: Glucometer 128H 07/06/20 16:16: Glucometer 99 07/06/20 20:32: Glucometer 124H 07/07/20 05:25: White Blood Count 12.6H, Red Blood Count 4.35, Hemoglobin 9.6L, Hematocrit 32L, Mean Corpuscular Volume 73L, Mean Corpuscular Hemoglobin 22L, Mean Corpuscular Hemoglobin Concent 30L, Red Cell Distribution Width 20.0H, Platelet Count 391, Mean Platelet Volume 9.1, Immature Granulocyte % (Auto) 1, Neutrophils (%) (Auto) 74, Lymphocytes (%) (Auto) 14, Monocytes (%) (Auto) 9, Eosinophils (%) (Auto) 3, Basophils (%) (Auto) 0, Neutrophils # (Auto) 9.3H, Lymphocytes # (Auto) 1.8, Monocytes # (Auto) 1.1H, Eosinophils # (Auto) 0.3, Basophils # (Auto) 0.0, Immature Granulocyte # (Auto) 0.1, Sodium Level 141, Potassium Level 3.9, Chloride Level 108H, Carbon Dioxide Level 23, Anion Gap 10, Blood Urea Nitrogen 8, Creatinine 0.71, Estimat Glomerular Filtration Rate > 60, BUN/Creatinine Ratio 11, Glucose Level 96, Calcium Level 8.5, Phosphorus Level 2.8, Magnesium Level 2.0 07/07/20 06:18: Glucometer 85 Microbiology 07/02/20 Urine Culture - Final, Complete NO GROWTH 07/02/20 Blood Culture - Preliminary, Resulted No growth Laboratory Tests 07/05/20 14:05 07/06/20 05:23 07/07/20 05:25 A/P: Assessment: Hemotchezia due to rectal mass that is large and suspected to be a carcinoma (diagnosed on endoscopy of 07/04/20) - management per Dr. Amanda Leucocytosis of undetermined etiology, managed by Dr Benson PAF with RVR diagnosed on 07/02/20 (also h/o a similar episode during hosp at [facility] in or around 2016). Currently NSR Mild elevation of troponin, likely type 2 [place] due to a long episode of A Fib with vent rate around 180 Psoriasis Hypokalemia, likely from GI losses. Hypokalemia probably promoting PAF - resolved Plan: * Complex management due to multiple comorbidities, including PAF (that requires anticoagulation therapy) and active GI bleed (that requires avoidance of anticoagulation therapy) * [place] would be to treat/remove source of GI bleed and then start anticoag. At this time pt and her do not want any surgical intervention, chemo or radiation tx. I * Dr. Rendon has long and detailed discussion with them and explained to them, amongst other things, why anticoag is recommended for Ms. Shaw (CHADSVASC score 2-3) if there weren't any contraindications. * Hypokalemia resolved * Continue oral, long-acting dilt for vent rate control during PAF * Monitor labs * Planned sigmoidoscopy today for biopsy by Dr. Amanda * H/H improved MELLO TELLO Jul 07, 2020 10:18
[2020-07-07] MEDS ORDERED: LACTATED RINGERS 1,000 ML IV ONE ×2 (10:47→11:00)
[2020-07-07] MEDS ORDERED: proPOfol 200 MG/20 ML (DIPRIVAN) VIAL IV ONE (10:55)
[2020-07-07] MEDS ORDERED: LIDOCAINE JELLY 2% 6 ML SYRINGE ONE (11:05)
[2020-07-07] MEDS ORDERED: LIDOCAINE JELLY 2% 6 ML SYRINGE TOP ONE (11:05)
[2020-07-07 11:35] VITALS: BP 102/49
[2020-07-07 11:40] VITALS: BP 102/50
--- NOTE | 2020-07-07 11:43 | Progress Note-Post Operative ---
Post-Operative Progess Note Surgeon (s)/Psychological Anthropologist (s) Surgeon ANAHI MACK MD Psychological Anthropologist: None Pre-Operative Diagnosis rectal mucosal adenocarcinoma Post-Operative Diagnosis same Procedure & Operative Findings Date of Procedure 07/07/20 Procedure Performed/Findings sigmoidoscopy with bx. Anesthesia Type mac Estimated Blood Loss Estimated blood loss (mL): minimal Specimens/Packing Specimens Removed rectal mass ANAHI MACK MD Jul 07, 2020 11:43
[2020-07-07 11:45] VITALS: BP 105/55
[2020-07-07] MEDS: VALACYCLOVIR 500 MG TAB (VALTREX) PO SCH (13:27)
[2020-07-07] MEDS: FLUoxetine HCL 20 MG (PROzac) CAP PO SCH (13:27)
--- NOTE | 2020-07-07 13:51 | Progress Note - Cardiology ---
Cardiology SOAP Progress Note Subjective: No cp No n/v No palp or syncope No shortness of breath at rest Gen malaise present Objective: I&O/Vital Signs 07/07/20 07/07/20 07/07/20 07/07/20 04:00 06:40 07:20 08:00 Temp 36.6 Pulse 57 61 Resp 18 B/P (MAP) 128/60 (82) Pulse Ox 97 O2 Delivery Room Air Room Air Room Air 07/07/20 07/07/20 07/07/20 07/07/20 08:00 11:35 11:40 11:45 Temp 36.2 Pulse 65 57 63 62 Resp 18 16 16 16 B/P (MAP) 120/57 (78) Pulse Ox 97 100 100 98 O2 Delivery Room Air OxyMask OxyMask Room Air O2 Flow Rate 10 2 07/07/20 12:12 Pulse 88 07/07/20 00:00 Intake Total 1110 ml Balance 1110 ml Constitutional: AAO x 3, well-developed, well-nourished Respiratory: No accessory muscle use; other (fair to good, bilat air entry, diminished at the bases) Cardiovascular: regular rate-rhythm, S1 and S2, systolic murmur (soft STEPHANIE at card base) Gastrointestional: No tender; soft; No guarding, No rebound; audible bowel sounds Extremities: No clubbing, No cyanosis, No significant edema Neurologic/Psychiatric: oriented x 3, other (moves all limbs equally) Skin: No rash on exposed areas, No ulcerations on exposed areas Results/Procedures: Labs Laboratory Tests 07/06/20 16:16: Glucometer 99 07/06/20 20:32: Glucometer 124H 07/07/20 05:25: White Blood Count 12.6H, Red Blood Count 4.35, Hemoglobin 9.6L, Hematocrit 32L, Mean Corpuscular Volume 73L, Mean Corpuscular Hemoglobin 22L, Mean Corpuscular Hemoglobin Concent 30L, Red Cell Distribution Width 20.0H, Platelet Count 391, Mean Platelet Volume 9.1, Immature Granulocyte % (Auto) 1, Neutrophils (%) (Auto) 74, Lymphocytes (%) (Auto) 14, Monocytes (%) (Auto) 9, Eosinophils (%) (Auto) 3, Basophils (%) (Auto) 0, Neutrophils # (Auto) 9.3H, Lymphocytes # (Auto) 1.8, Monocytes # (Auto) 1.1H, Eosinophils # (Auto) 0.3, Basophils # (Auto) 0.0, Immature Granulocyte # (Auto) 0.1, Sodium Level 141, Potassium Level 3.9, Chloride Level 108H, Carbon Dioxide Level 23, Anion Gap 10, Blood Urea Nitr ogen 8, Creatinine 0.71, Estimat Glomerular Filtration Rate > 60, BUN/Creatinine Ratio 11, Glucose Level 96, Calcium Level 8.5, Phosphorus Level 2.8, Magnesium Level 2.0 07/07/20 06:18: Glucometer 85 Microbiology 07/02/20 Urine Culture - Final, Complete NO GROWTH 07/02/20 Blood Culture - Preliminary, Resulted No growth Laboratory Tests 07/05/20 14:05 07/06/20 05:23 07/07/20 05:25 A/P: Assessment: Hemotchezia due to rectal mass that is large and suspected to be a carcinoma (diagnosed on endoscopy of 07/04/20) - management per Dr. Amanda Leucocytosis of undetermined etiology, managed by Dr Benson PAF with RVR diagnosed on 07/02/20 (also h/o a similar episode during hosp at [facility] in or around 2016). Currently NSR Mild elevation of troponin, likely type 2 NH due to a long episode of A Fib with vent rate around 180 Psoriasis Hypokalemia, likely from GI losses - resolved Plan: * Complex management due to multiple comorbidities, including PAF (that requires anticoagulation therapy) and active GI bleed (that requires avoidance of anticoagulation therapy) * Gabbs would be to treat/remove source of GI bleed and then start anticoag. At this time pt and her do not want any surgical intervention, chemo or radiation tx. * Continue oral, long-acting dilt for vent rate control during PAF * Monitor labs * Planned sigmoidoscopy today for biopsy by Dr. Amanda * H/H AMRIK Bryan MD [facility] Jul 07, 2020 13:51
--- NOTE | 2020-07-07 16:38 | OPERATIVE REPORT ---
DATE OF SERVICE: 07/07/2020 ATTENDING PRIMARY CARE PHYSICIAN: Dr. Abdullahi. PREOPERATIVE DIAGNOSIS: Muscularis mucosa rectal adenocarcinoma. POSTOPERATIVE DIAGNOSIS: Muscularis mucosa rectal adenocarcinoma. PROCEDURE PERFORMED: Sigmoidoscopy with biopsy. SURGEON: Anahi Mack MD. ANESTHESIA: Monitored anesthesia care. ESTIMATED BLOOD LOSS: Minimal. FINDINGS: Large rectal mass, oval in shape with long and distal portions of the mass approximately 5 cm from the anal verge and approximately 5 cm in length. This lesion is nonobstructing. Chronic between stage II and III external and internal hemorrhoids as well as moderate sigmoid diverticulosis. DISPOSITION: The patient tolerated the procedure well. INDICATIONS FOR PROCEDURE: The patient is a 74-year-old female, who presented to the emergency department with heart palpitations and was found to initially be in atrial fibrillation; however, converted to sinus rhythm on her own. She states that she had another episode before and was admitted to [facility] for what sounds to be psoriatic arthritis. She has had rectal bleeding for the past two years; however, this has become more frequent in the past several months and she has lost approximately 60 pounds. She did undergo a colonoscopy with biopsy and this large mass in the rectum, where it was identified, which was grossly consistent with adenocarcinoma 5 cm from the anal verge. Biopsies were taken; however, this apparently was not deep enough and only showed the adenocarcinoma in the muscularis mucosa level. She will need deeper biopsies for documentation of invasive adenocarcinoma to proceed with neoadjuvant chemoradiation and downsize the tumor and eventual surgery. DESCRIPTION OF PROCEDURE: The patient was brought to the endoscopy suite and laid in the left lateral decubitus position. After adequate IV pain and sedative medications and monitored anesthesia care, the endoscope was placed into the anus and the rectum gently insufflated. The endoscope was then advanced through the valves of Trent of the rectum and the same lesion identified. Approximately 6 to 7 deep biopsies of the lesion were taken using biopsy forceps with visualization of good hemostasis. The endoscope was easily advanced beyond the lesion and through the sigmoid colon and descending colon with no other lesions identified. The endoscope was then slowly withdrawn while taking a second look and suctioning of residual air with no additional findings. The patient tolerated the procedure well. We will start a regular diet and she will then be discharged home and will be instructed to follow up with radiation oncology for further workup with MRI as well as CT scan and a followup with radiation oncology. Job ID: [id number] DocumentID: [id number] Dictated Date: 07/07/2020 12:18:30 Astrophysics Teacher Date: 07/07/2020 16:37:09 Dictated By: ANAHI MACK MD
== END 2020-07-07 14:05 | disposition home or self-care (01) | DRG 374 ==
LOC: ER FS 20:19 → ICU 07-03 03:20 → 4TH 07-03 14:48
PROVIDERS: ADMIT Family Medicine; ATTEND Internal Medicine
PROC: 0DBP8ZX Excision of Rectum, Via Natural or Artificial Opening Endoscopic, Diagnostic (ICD-10-PCS; principal; 2020-07-04 10:48)
DX: C20 Malignant neoplasm of rectum (principal); I21.A1 Myocardial infarction type 2; I48.0 Paroxysmal atrial fibrillation; L40.50 Arthropathic psoriasis, unspecified; K58.0 Irritable bowel syndrome with diarrhea; I10 Essential (primary) hypertension; E11.9 Type 2 diabetes mellitus without complications; Z66 Do not resuscitate; Z20.822 Contact with and (suspected) exposure to COVID-19; E87.6 Hypokalemia; D50.9 Iron deficiency anemia, unspecified; F41.9 Anxiety disorder, unspecified; F32.9 Major depressive disorder, single episode, unspecified; D47.3 Essential (hemorrhagic) thrombocythemia; K64.2 Third degree hemorrhoids; K57.90 Diverticulosis of intestine, part unspecified, without perforation or abscess without bleeding; E83.39 Other disorders of phosphorus metabolism; Z91.81 History of falling; Z87.891 Personal history of nicotine dependence; Z79.52 Long term (current) use of systemic steroids; Z79.2 Long term (current) use of antibiotics; Z88.0 Allergy status to penicillin
CPT/HCPCS: 36415; 71045; 74177; 77290; 77334; 80048; 80053; 81000; 82728; 82962; 83540; 83605; 83735; 83880; 84100; 84484; 85007; 85025; 85027; 87040; 87088; 87635; 93005; 93306; 94760; 99204

== ENCOUNTER → 2020-07-09 | Outpatient (CLI) | payer MEDICARE, OTHER ==
[~2020-07-09] MED LIST: CATHETER FLUSH 10 ML SYR IV PRN; DILT120C47 PO; FERR325T5 PO; FLUO20CA46 PO; GADOBUTROL 7.5 MMOL/7.5 ML (GADAVIST) VIAL IV ONE; HOLD METFORMIN - RECEIVED CONTRAST 20 ML VIAL IV SCH; IOHEXOL 350 MG/ML 100 ML (OMNIPAQUE 350) VIAL IV ONE; LEVO500T80 PO; METR500T PO; NS 100 ML (IVPB) BAG IV ONE
--- NOTE | 2020-07-09 08:58 | Diagnostic Imaging Report ---
PROCEDURE: CT chest with contrast only. TECHNIQUE: Multiple contiguous axial images were obtained through the chest after administration of intravenous contrast. Auto Exposure Controls were utilized during the CT exam to meet ALARA standards for radiation dose reduction. INDICATION: Rectal cancer for staging. FINDINGS: There is no lung mass. No suspicious pulmonary nodule. No axillary, hilar or mediastinal lymphadenopathy. No acute or suspicious soft tissue or osseous chest wall pathology. The aorta is patent and nonaneurysmal. The pulmonary arterial branches are widely patent. Supraclavicular fossa appeared unremarkable. Visualized upper abdomen showed incompletely visualized but nonfocal appearing liver. There is low-density thickening of the kay of the gastric antrum and pylorus. Lack of distention limits evaluation of the gastric wall at those levels, however inflammatory component could not be excluded this is new from the comparison. A large duodenal diverticulum is once again identified. The adrenal glands negative. Spleen within normal limits of size. No upper abdominal lymphadenopathy. IMPRESSION: 1. No evidence of metastatic disease to the chest. 2. Inflammatory changes to the distal stomach and gastric outlet without outlet obstruction could not be excluded. Dictated by: Dictated on workstation # [id number]
--- NOTE | 2020-07-09 11:58 | Diagnostic Imaging Report ---
EXAMINATION: MRI pelvis with and without contrast. TECHNIQUE: Multiplanar, multisequence MRI of the pelvis was performed with and without contrast according to rectal staging protocol. HISTORY: Newly diagnosed rectal mass FINDINGS: Overall image quality: Adequate Tumor location and morphology: Tumor location: High rectum (10.1-15 cm) Distance of inferior border of tumor to anal verge: 10 cm Distance of inferior border of tumor to anorectal junction: 6 cm Craniocaudal length: 7.5 cm Circumferential location: The tumor is predominantly anchored along the posterior and left lateral margin. Morphology: The tumor extends within the lumen of the upper one-third of the rectum from the level of the rectosigmoid junction to the junction of the upper and middle one-third of the rectum. The tumor has a frond-like configuration. Mucinous: yes T-category: There is likely tumor invasion into the muscularis propria. There are a few spiculations extending into the mesorectal fat at the 3:00 position in the most superior aspect of the mass. Therefore, this is most compatible with either an advanced T2 versus early T3 lesion. Involvement of sphincter complex: no CRM (for T3 only): Shortest distance to CRM: If the spiculations are indeed tumor, this is located above the anterior peritoneal reflection. Therefore, the spiculations would be within the peritoneal cavity rather than the non-peritonealized regions. N-category: N1a (1 abnormal lymph node) between 5 and 9 mm with two of: irregular borders, heterogenous signal, and round shape Suspicious mesorectal lymph nodes and/or tumor deposits: Solitary round heterogeneous 6 mm nodule on the left at the 3:00 position. Number of suspicious lymph nodes: 1 Distance from tumor deposit to CRM: Not applicable Extramesorectal fascia lymph nodes: None IMPRESSION: 1. Elongated intraluminal mass is located in the upper one-third of the rectum and has frond-like configurations throughout the lumen. The tumor invades the muscularis propria with the possibility of spiculations extending into the mesorectal fat (advanced T2/early T3). 2. Solitary lymph node meets abnormal criteria by MRI indicating N1 disease. Dictated by: Dictated on workstation # [id number]
== END ==
LOC: RAD 08:15
PROVIDERS: ATTEND Internal Medicine Hematology & Oncology
DX: C20 Malignant neoplasm of rectum (principal)
CPT/HCPCS: 71260; 72197

== ENCOUNTER 2020-07-19 11:10 | Inpatient (IN) | payer MEDICARE, OTHER ==
[~2020-07-19] VITALS: Ht 152.4 cm; Wt 46.3 kg
[~2020-07-19 11:10] MED LIST changes: -CATHETER FLUSH 10 ML SYR IV PRN; -GADOBUTROL 7.5 MMOL/7.5 ML (GADAVIST) VIAL IV ONE; -HOLD METFORMIN - RECEIVED CONTRAST 20 ML VIAL IV SCH; -IOHEXOL 350 MG/ML 100 ML (OMNIPAQUE 350) VIAL IV ONE; -NS 100 ML (IVPB) BAG IV ONE
[2020-07-19 11:41] LABS: HEMATOCRIT 36 % (35-52); HEMOGLOBIN 11.6 G/DL (11.5-16.0); MEAN CORPUSCULAR HEMOGLOBIN 25 PG (25-34); MEAN CORPUSCULAR HGB CONC 32 G/DL (32-36); MEAN CORPUSCULAR VOLUME 77 FL (80-99); MEAN PLATELET VOLUME 9.2 FL (7.4-10.4); PLATELET COUNT 518 10^3/uL (130-400); WHITE BLOOD COUNT 15.2 10^3/uL (4.3-11.0)
[2020-07-19 11:42] LABS: BASOPHILS % (AUTO) 0 % (0-10); EOSINOPHILS % (AUTO) 0 % (0-10); LYMPHOCYTES % (AUTO) 6 % (12-44); MONOCYTES # (AUTO) 0.9 X 10^3 (0.0-1.0); MONOCYTES % (AUTO) 6 % (0-12); NEUTROPHILS # (AUTO) 13.2 X 10^3 (1.8-7.8); NEUTROPHILS % (AUTO) 87 % (42-75)
[2020-07-19 11:55] LABS: CARBON DIOXIDE 26 MMOL/L (21-32); CHLORIDE 102 MMOL/L (98-107); POTASSIUM 2.6 MMOL/L (3.6-5.0); SODIUM 139 MMOL/L (135-145)
[2020-07-19 11:56] LABS: ALANINE AMINOTRANSFERASE 7 U/L (0-55); ALBUMIN 2.5 GM/DL (3.2-4.5); ALKALINE PHOSPHATASE 57 U/L (40-136); BILIRUBIN,TOTAL 0.4 MG/DL (0.1-1.0); BUN/CREATININE RATIO 19; GFR ESTIMATED > 60; GLUCOSE 155 MG/DL (70-105)
--- NOTE | 2020-07-19 11:57 | Diagnostic Imaging Report ---
INDICATION: Chest pain with shortness of breath. Comparison with 07/02/2020. FINDINGS: Portable chest. Lungs are well-aerated and clear. Heart is not enlarged. No pulmonary edema or hilar adenopathy. No pneumothorax or pleural effusion. No bony abnormalities. IMPRESSION: Normal portable chest. Dictated by: Dictated on workstation # [id number]
[2020-07-19 12:23] LABS: ANISOCYTOSIS SLIGHT; BAND NEUTROPHILS 23 %; BASOPHILS % (MANUAL) 0 %; ELLIPT/OVALOCYTES SLIGHT; EOSINOPHILS % (MANUAL) 0 %; LYMPHOCYTES % (MANUAL) 4 %; MONOCYTES % (MANUAL) 4 %; NEUTROPHILS % (MANUAL) 69 %
[2020-07-19] MEDS ORDERED: KCL 20 MEQ TAB (K-DUR) PO ONE (12:30)
[2020-07-19] MEDS: POTASSIUM CL 10MEQ/50ML IVPB 50 ML IV SCH ×4 (12:35→16:53)
[2020-07-19] MEDS ORDERED: NS IV 1000 ML 1,000 ML ONE (12:46)
[2020-07-19] MEDS ORDERED: NS IV 1000 ML 1,000 ML IV SCH (13:00)
[2020-07-19 13:59] LABS: CLARITY,URINE CLEAR; COLOR,URINE YELLOW
[2020-07-19 14:00] LABS: BACTERIA,URINE NEGATIVE /HPF; BILIRUBIN,URINE NEGATIVE (NEGATIVE); GLUCOSE, URINE (UA) NEGATIVE (NEGATIVE); KETONES,URINE NEGATIVE (NEGATIVE); LEUKOCYTE ESTERASE ,URINE NEGATIVE (NEGATIVE); NITRITE,URINE NEGATIVE (NEGATIVE); PROTEIN,URINE TRACE (NEGATIVE); SQUAMOUS EPITHELIAL CELL,UR 0-2 /HPF; WBC,URINE 0-2 /HPF
--- NOTE | 2020-07-19 14:40 | ED General ---
General Chief Complaint: Cardiac/General Problems Stated Complaint: POSS. DEHYDRATED Nursing Triage Note: Pt presents per [facility] reporting 911 call to evaluate patient for "Atrial Fib", the RP "" states patient is diagnosed with cancer and very weak and fell last night. Nursing Sepsis Screen: No Definite Risk Source of Information: Patient Exam Limitations: No Limitations History of Present Illness Date Seen by Provider: Jul 19, 2020 Time Seen by Provider: 11:00 Initial Comments Patient is a 74-year-old female with history of proximal atrial fibrillation newly diagnosed colorectal cancer presents with palpitations and near syncope. Episode occurred last evening while in bed. She attempted to stand to use bathroom and slid down the wall. She denies hitting her head headache neck pain or any other injury or pain complaint at this time. Patient continues to complain of generalized fatigue and weakness. She denies palpitations when supine. No chest pain shortness of breath, nausea vomiting sweats. No abdominal pain. No fever chills or back pain. No urinary frequency urgency. Patient recently completed a 10-day course of Flagyl and Cipro for treatment of intestinal infection. Timing/Duration: 4-6 Hours Severity: Moderate Modifying Factors: improves with Movement Associated Systoms: Other Allergies and Home Medications Allergies Coded Allergies: Penicillins (Verified Allergy, Intermediate, 07/02/20) Home Medications Diltiazem HCl 120 Mg Cap.er.deg, 120 MG PO DAILY Prescribed by: DIANNE BAE on 07/05/20 1525 Ferrous Sulfate 325 Mg Tablet.dr, 325 MG PO BID WITH MEALS Prescribed by: DIANNE BAE on 07/06/20 1218 Fluoxetine HCl 20 Mg Capsule, 20 MG PO DAILY, (Reported) Levofloxacin 500 Mg Tablet, 500 MG PO DAILY Prescribed by: DIANNE BAE on 07/05/20 1228 Metronidazole 500 Mg Tablet, 500 MG PO TID Prescribed by: DIANNE BAE on 07/05/20 1228 Patient Home Medication List Home Medication List Reviewed: Yes Review of Systems Review of Systems Constitutional: see HPI EENTM: see HPI Respiratory: see HPI Cardiovascular: see HPI Gastrointestinal: see HPI Genitourinary: see HPI Musculoskeletal: see HPI Skin: see HPI Psychiatric/Neurological: See HPI Hematologic/Lymphatic: See HPI Immunological/Allergic: see HPI All Other Systems Reviewed Negative Unless Noted: Yes Past [id number] Hx Past Med/Social Hx: Reviewed Nursing Past Med/Soc Hx Patient Social History Alcohol Use: Denies Use Smoking Status: Former Smoker Type Used: Cigarettes Former Smoker, Quit: May 21, 2009 Recent Infectious Disease Expo: No Recent Hopitalizations: Yes (07/03/20-07/07/20) Seasonal Allergies Seasonal Allergies: No Past Medical History Surgeries: Yes Gallbladder Respiratory: No Cardiac: Yes (Paroxysmal A Fib) Atrial Fibrillation, Hypertension Neurological: No Genitourinary: No Gastrointestinal: Yes (current colon CA dx) Colitis, Hemorrhoids, Polyps, Irritable Bowel Musculoskeletal: Yes (Psoriatic Arthritis) Arthritis Endocrine: No (DM Type II) Diabetes, Non-Insulin dep HEENT: No Cancer: Yes Colon Psychosocial: No Integumentary: No Blood Disorders: Yes (Iron Deficiency Anemia) Adverse Reaction/Blood Tranf: No Physical Exam Vital Signs Vital Signs - First Documented 07/19/20 11:10 Temp 36.2 Pulse 110 Resp 16 B/P (MAP) 125/77 (93) Pulse Ox 97 O2 Delivery Room Air Capillary Refill : Less Than 3 Seconds Height, Weight, BMI Height: '" Weight: lbs. oz. kg; 17.00 BMI Method: General Appearance: No Apparent Distress Eyes: Bilateral Eye Normal Inspection, Bilateral Eye PERRL HEENT: PERRL/EOMI, Normal ENT Inspection, Pharynx Normal Neck: Full Range of Motion, Non Tender, Supple Respiratory: Lungs Clear Cardiovascular: Irregularly Irregular Gastrointestinal: Non Tender, Soft Back: Normal Inspection, No CVA Tenderness Extremity: Normal Capillary Refill Neurologic/Psychiatric: Alert, Oriented x3 Skin: Normal Color Focused Exam Sepsis Stage: Ruled Out Progress/Results/Core Measures Suspected Sepsis Recent Fever Within 48 Hours: No Infection Criteria Present: None New/Unexplained Altered Menta: No Sepsis Screen: No Definite Risk SIRS Temperature: Pulse: 110 Respiratory Rate: 16 Laboratory Tests 07/19/20 11:20: White Blood Count 15.2H Blood Pressure 125 /77 Mean: 93 Laboratory Tests 07/19/20 11:20: Creatinine 0.80, Platelet Count 518H, Total Bilirubin 0.4 Results/Orders Lab Results Laboratory Tests Test 07/19/20 11:20 07/19/20 13:40 Range/Units White Blood Count 15.2 H 4.3-11.0 10^3/uL Red Blood Count 4.72 4.35-5.85 10^6/uL Hemoglobin 11.6 11.5-16.0 G/DL Hematocrit 36 35-52 % Mean Corpuscular Volume 77 L 80-99 FL Mean Corpuscular Hemoglobin 25 25-34 PG Mean Corpuscular Hemoglobin Concent 32 32-36 G/DL Red Cell Distribution Width 26.3 H 10.0-14.5 % Platelet Count 518 H 130-400 10^3/uL Mean Platelet Volume 9.2 7.4-10.4 FL Immature Granulocyte % (Auto) 0 % Neutrophils (%) (Auto) 87 H 42-75 % Lymphocytes (%) (Auto) 6 L 12-44 % Monocytes (%) (Auto) 6 0-12 % Eosinophils (%) (Auto) 0 0-10 % Basophils (%) (Auto) 0 0-10 % Neutrophils # (Auto) 13.2 H 1.8-7.8 X 10^3 Lymphocytes # (Auto) 1.0 1.0-4.0 X 10^3 Monocytes # (Auto) 0.9 0.0-1.0 X 10^3 Eosinophils # (Auto) 0.0 0.0-0.3 10^3/uL Basophils # (Auto) 0.0 0.0-0.1 10^3/uL Immature Granulocyte # (Auto) 0.0 0.0-0.1 10^3/uL Neutrophils % (Manual) 69 % Lymphocytes % (Manual) 4 % Monocytes % (Manual) 4 % Eosinophils % (Manual) 0 % Basophils % (Manual) 0 % Band Neutrophils 23 % Anisocytosis SLIGHT Elliptocytes SLIGHT Sodium Level 139 135-145 MMOL/L Potassium Level 2.6 L 3.6-5.0 MMOL/L Chloride Level 102 98-107 MMOL/L Carbon Dioxide Level 26 21-32 MMOL/L Anion Gap 11 5-14 MMOL/L Blood Urea Nitrogen 15 7-18 MG/DL Creatinine 0.80 0.60-1.30 MG/DL Estimat Glomerular Filtration Rate > 60 BUN/Creatinine Ratio 19 Glucose Level 155 H 70-105 MG/DL Calcium Level 8.0 L 8.5-10.1 MG/DL Corrected Calcium 9.2 8.5-10.1 MG/DL Magnesium Level 2.0 1.6-2.4 MG/DL Total Bilirubin 0.4 0.1-1.0 MG/DL Aspartate Amino Transf (AST/SGOT) 10 5-34 U/L Alanine Aminotransferase (ALT/SGPT) 7 0-55 U/L Alkaline Phosphatase 57 40-136 U/L Troponin I < 0.30 <0.30 NG/ML Total Protein 5.0 L 6.4-8.2 GM/DL Albumin 2.5 L 3.2-4.5 GM/DL Urine Color YELLOW Urine Clarity CLEAR Urine pH 6.0 5-9 Urine Specific Craig >=1.030 1.016-1.022 Urine Protein TRACE H NEGATIVE Urine Glucose (UA) NEGATIVE NEGATIVE Urine Ketones NEGATIVE NEGATIVE Urine Nitrite NEGATIVE NEGATIVE Urine Bilirubin NEGATIVE NEGATIVE Urine Urobilinogen 0.2 < = 1.0 MG/DL Urine Leukocyte Esterase NEGATIVE NEGATIVE Urine RBC (Auto) NEGATIVE NEGATIVE Urine RBC NONE /HPF Urine WBC 0-2 /HPF Urine Squamous Epithelial Cells 0-2 /HPF Urine Crystals NONE /LPF Urine Bacteria NEGATIVE /HPF Urine Casts NONE /LPF Urine Mucus SMALL H /LPF Urine Culture Indicated NO My Orders Orders - LES JIMENEZ DO Cbc And Manual Diff (07/19/20 11:28) Comprehensive Metabolic Panel (07/19/20 11:28) Continuous Ekg Monitoring (07/19/20 11:28) Troponin I Fs (07/19/20 11:28) Chest 1 View Ap/Pa Only (07/19/20 11:28) Magnesium (07/19/20 11:28) Ekg Tracing (07/19/20 12:26) Potassium Cl 10meq/50ml Ivpb (Kcl 10 Meq (07/19/20 12:30) Potassium Chloride (Tablet) (K Dur Table (07/19/20 12:30) Urinalysis (07/19/20 12:31) Ns Iv 1000 Ml (Sodium Chloride 0.9%) (07/19/20 12:46) Ed Iv/Invasive Line Start (07/19/20 12:51) Ns Iv 1000 Ml (Sodium Chloride 0.9%) (07/19/20 13:00) Medications Given in ED Current Medications Medications Dose Ordered Sig/Danielle Route Start Time Stop Time Status Last Admin Dose Admin Potassium Chloride 40 meq ONCE ONCE PO 07/19/20 12:30 07/19/20 12:31 DC 07/19/20 12:35 40 MEQ Vital Signs/I&O 07/19/20 11:10 Temp 36.2 Pulse 110 Resp 16 B/P (MAP) 125/77 (93) Pulse Ox 97 O2 Delivery Room Air Capillary Refill : Less Than 3 Seconds Blood Pressure Mean: 93 Departure Communication (Admissions) Chest x-ray: Reviewed EKG: Sinus tachycardia with intermittent A. fib, Patient with intermittent A. fib with heart rate in the 120s and stable blood pressure. Asymptomatic at rest. Potassium was 2.6. Patient did not tolerate oral potassium had difficulty swallowing 1/2 tablet. IV potassium initiated. Will admit to [facility] for further treatment. Impression Primary Impression: Atrial fibrillation with RVR Additional Impression: Hypokalemia Disposition: ADMITTED INPATIENT Condition: Stable Admissions Decision to Admit Reason: Admit from ER (General) Decision to Admit/Date: Jul 19, 2020 Time/Decision to Admit Time: 14:30 Transfer Transfer Reason: Exceeds level of care Method of Transfer: EMS Departure-Patient Inst. Decision time for Depature: 14:38 Referrals: BLANCHE CAMARENA MD (PCP) Primary Care Physician JOSHUA MOORE DO (Family) Primary Care Physician LES JIMENEZ DO Jul 19, 2020 14:40
[2020-07-19] MEDS: POTASSIUM CL 10 MEQ/50 ML IVPB (PRE-MIX) IV SCH ×5 (16:59→21:41)
[2020-07-19] MEDS ORDERED: CATHETER FLUSH 10 ML SYR IV PRN ×2 (17:00)
[2020-07-19 19:17] VITALS: BP 129/63
[2020-07-19] MEDS: POTASSIUM BICARB 20 MEQ (EFFER-K) TABLET PO SCH (20:01)
[2020-07-20] VITALS (8 sets, daily range): BP systolic 96–120; BP diastolic 51–63
[2020-07-20 05:44] LABS: BASOPHILS % (AUTO) 0 % (0-10); EOSINOPHILS # (AUTO) 0.2 10^3/uL (0.0-0.3); EOSINOPHILS % (AUTO) 2 % (0-10); HEMATOCRIT 31 % (35-52); HEMOGLOBIN 9.6 g/dL (11.5-16.0); LYMPHOCYTES # (AUTO) 0.6 10^3/uL (1.0-4.0); LYMPHOCYTES % (AUTO) 8 % (12-44); MEAN CORPUSCULAR HEMOGLOBIN 24 pg (25-34); MEAN CORPUSCULAR HGB CONC 31 g/dL (32-36); MEAN CORPUSCULAR VOLUME 79 fL (80-99); MONOCYTES # (AUTO) 0.9 10^3/uL (0.0-1.0); MONOCYTES % (AUTO) 10 % (0-12); NEUTROPHILS # (AUTO) 6.7 10^3/uL (1.8-7.8); NEUTROPHILS % (AUTO) 80 % (42-75); PLATELET COUNT 350 10^3/uL (130-400); WHITE BLOOD COUNT 8.4 10^3/uL (4.3-11.0)
[2020-07-20 05:50] LABS: ALBUMIN 2.4 GM/DL (3.2-4.5); CHLORIDE 108 MMOL/L (98-107); POTASSIUM 3.4 MMOL/L (3.6-5.0); SODIUM 138 MMOL/L (135-145)
[2020-07-20 05:52] LABS: CALCIUM 7.9 MG/DL (8.5-10.1)
[2020-07-20 05:53] LABS: GLUCOSE 111 MG/DL (70-105); TOTAL PROTEIN 4.6 GM/DL (6.4-8.2)
[2020-07-20 05:54] LABS: BILIRUBIN,TOTAL 0.3 MG/DL (0.1-1.0); CARBON DIOXIDE 23 MMOL/L (21-32)
[2020-07-20 05:56] LABS: ALKALINE PHOSPHATASE 45 U/L (40-136); CREATININE SERUM 0.61 MG/DL (0.60-1.30); GFR ESTIMATED > 60
[2020-07-20 05:57] LABS: BUN/CREATININE RATIO 15
[2020-07-20 05:59] LABS: ALANINE AMINOTRANSFERASE 12 U/L (0-55)
[2020-07-20] MEDS ORDERED: POTASSIUM CL 10MEQ/50ML IVPB 100 ML IV ONE (08:50)
[2020-07-20] MEDS ORDERED: NS IV 1000 ML 1,000 ML ONE (08:51)
[2020-07-20] MEDS ORDERED: NON-FORMULARY MEDICATION 1 EA EA (Diltiazem HCl (Dilt-Xr) 120 MG) PO SCH (09:00)
[2020-07-20] MEDS: POTASSIUM CL 10MEQ/50ML IVPB 50 ML IV SCH ×2 (09:14→11:02)
[2020-07-20] MEDS: POTASSIUM BICARB 20 MEQ (EFFER-K) TABLET PO SCH ×2 (09:14→20:53)
[2020-07-20] MEDS: NS IV 1000 ML 1,000 ML IV SCH (09:14)
[2020-07-20] MEDS: dilTIAZem120 MG (CARDIZEM CD) CAP PO SCH (09:14)
[2020-07-20] MEDS ORDERED: DIPHENOXYLATE/ATROPINE 2.5MG/0.025MG (LOMOTIL) TAB PO PRN (09:15)
[2020-07-20 09:27] LABS: MAGNESIUM 1.8 MG/DL (1.6-2.4)
[2020-07-20] MEDS ORDERED: COLE1TAB PO (09:47)
[2020-07-20] MEDS ORDERED: FERR325T18 PO (09:47)
[2020-07-20] MEDS ORDERED: HYDR-3817 PO (09:47)
[2020-07-20] MEDS ORDERED: LOPE-134 PO (09:47)
[2020-07-20] MEDS ORDERED: DILT240C47 PO (09:47)
[2020-07-20] MEDS: LACTOBACILLUS ACIDOPHILUS (PROBIOTIC) CAPSULE PO SCH ×2 (11:02→17:47)
--- NOTE | 2020-07-20 11:12 | History & Physical ---
HPI History of Present Illness: 74 yo female came to ER due to being so weak she could not get to the bathroom, and slid down the wall to the floor. She was found to have severe hypokalemia. She has had problems with loose stools for around 30 years since having gall bladder out but for the last several months has been severe and was using up to 2 bottles per week of Immodium the last couple of months. She was recently diagnosed with rectal malignancy and has met with Radiation Oncology and Medical Oncology but not yet started treatment. Her reports she has had two biopsies, and apparently is still needing a third in order to proceed with treatment, and they are considering going to for that since they understand t hat ultimately they will need to see Dr. Walls there for surgery. They are concerned about her getting stable enough to that so that they can get treatment started as soon as possible. She also has atrial fibrillation and did have mild tachycardia on admission as well. She admits abdominal pain since starting to have abdominal exams here but not prior to that. She was started on cholestyramine outpatient for the diarrhea, but is not currently taking any potassium at home and states she can't swallow the pills. Previous admission 07/03-07/07 she was treated for A fib RVR, dx with the rectal cancer and treated for colitis with levofloxacin and flagyl which she took for 3 more days after going home. Source: patient, family Date seen by provider: Jul 20, 2020 Time Seen by Provider: 09:10 Attending Physician Dominick Nichols MD PCP Marbin Lara MD Consult Date of Admission Jul 19, 2020 at 16:04 Home Medications Home Medications Reviewed patient Home Medication Reconciliation performed by pharmacy medication reconciliations denture technician and/or nursing. Patients Allergies have been reviewed. Allergies Coded Allergies: Penicillins (Verified Allergy, Intermediate, 07/02/20) [id number] Hx Patient Social History Smoking Status: Former Smoker Recent Hopitalizations: Yes (07/03/20-07/07/20) Alcohol Use?: Yes Tobacco type used: Cigarettes Past Medical History PMHx: Atrial fibrillation DMII Psoriasis Irritable bowel syndrome SurgHx: Cholecystectomy Review of Systems ([facility]C) Constitutional: No fever; malaise, weakness Respiratory: No cough, No short of breath Cardiovascular: chest pain (when she has palpitations), palpitations Gastrointestinal: abdominal pain, diarrhea Genitourinary: No dysuria Musculoskeletal: no symptoms reported Skin: no symptoms reported Psychiatric/Neurological: No Symptoms Reported Reviewed Test Results Reviewed Test Results Lab Laboratory Tests Test 07/19/20 11:20 07/19/20 13:40 07/20/20 05:27 Range/Units White Blood Count 15.2 H 8.4 4.3-11.0 10^3/uL Red Blood Count 4.72 3.96 3.80-5.11 10^6/uL Hemoglobin 11.6 9.6 L 11.5-16.0 g/dL Hematocrit 36 31 L 35-52 % Mean Corpuscular Volume 77 L 79 L 80-99 fL Mean Corpuscular Hemoglobin 25 24 L 25-34 pg Mean Corpuscular Hemoglobin Concent 32 31 L 32-36 g/dL Red Cell Distribution Width 26.3 H 26.6 H 10.0-14.5 % Platelet Count 518 H 350 130-400 10^3/uL Mean Platelet Volume 9.2 9.0 9.0-12.2 fL Immature Granulocyte % (Auto) 0 1 % Neutrophils (%) (Auto) 87 H 80 H 42-75 % Lymphocytes (%) (Auto) 6 L 8 L 12-44 % Monocytes (%) (Auto) 6 10 0-12 % Eosinophils (%) (Auto) 0 2 0-10 % Basophils (%) (Auto) 0 0 0-10 % Neutrophils # (Auto) 13.2 H 6.7 1.8-7.8 10^3/uL Lymphocytes # (Auto) 1.0 0.6 L 1.0-4.0 10^3/uL Monocytes # (Auto) 0.9 0.9 0.0-1.0 10^3/uL Eosinophils # (Auto) 0.0 0.2 0.0-0.3 10^3/uL Basophils # (Auto) 0.0 0.0 0.0-0.1 10^3/uL Immature Granulocyte # (Auto) 0.0 0.0 0.0-0.1 10^3/uL Neutrophils % (Manual) 69 % Lymphocytes % (Manual) 4 % Monocytes % (Manual) 4 % Eosinophils % (Manual) 0 % Basophils % (Manual) 0 % Band Neutrophils 23 % Anisocytosis SLIGHT Elliptocytes SLIGHT Sodium Level 139 138 135-145 MMOL/L Potassium Level 2.6 L 3.4 L 3.6-5.0 MMOL/L Chloride Level 102 108 H 98-107 MMOL/L Carbon Dioxide Level 26 23 21-32 MMOL/L Anion Gap 11 7 5-14 MMOL/L Blood Urea Nitrogen 15 9 7-18 MG/DL Creatinine 0.80 0.61 0.60-1.30 MG/DL Estimat Glomerular Filtration Rate > 60 > 60 BUN/Creatinine Ratio 19 15 Glucose Level 155 H 111 H 70-105 MG/DL Calcium Level 8.0 L 7.9 L 8.5-10.1 MG/DL Corrected Calcium 9.2 9.2 8.5-10.1 MG/DL Magnesium Level 2.0 1.8 1.6-2.4 MG/DL Total Bilirubin 0.4 0.3 0.1-1.0 MG/DL Aspartate Amino Transf (AST/SGOT) 10 9 5-34 U/L Alanine Aminotransferase (ALT/SGPT) 7 12 0-55 U/L Alkaline Phosphatase 57 45 40-136 U/L Troponin I < 0.30 <0.30 NG/ML Total Protein 5.0 L 4.6 L 6.4-8.2 GM/DL Albumin 2.5 L 2.4 L 3.2-4.5 GM/DL Urine Color YELLOW Urine Clarity CLEAR Urine pH 6.0 5-9 Urine Specific [place] >=1.030 1.016-1.022 Urine Protein TRACE H NEGATIVE Urine Glucose (UA) NEGATIVE NEGATIVE Urine Ketones NEGATIVE NEGATIVE Urine Nitrite NEGATIVE NEGATIVE Urine Bilirubin NEGATIVE NEGATIVE Urine Urobilinogen 0.2 < = 1.0 MG/DL Urine Leukocyte Esterase NEGATIVE NEGATIVE Urine RBC (Auto) NEGATIVE NEGATIVE Urine RBC NONE /HPF Urine WBC 0-2 /HPF Urine Squamous Epithelial Cells 0-2 /HPF Urine Crystals NONE /LPF Urine Bacteria NEGATIVE /HPF Urine Casts NONE /LPF Urine Mucus SMALL H /LPF Urine Culture Indicated NO Radiology CXR 07/19/20 unremarkable Physical Exam-([facility]) Physical Exam Vital Signs VS - Last 72 Hours, by Label 07/19/20 07/19/20 07/19/20 07/19/20 11:10 15:15 16:21 19:11 Temp 36.2 36.8 Pulse 110 88 79 Resp 16 21 B/P (MAP) 125/77 (93) 101/45 (93) Pulse Ox 97 98 98 O2 Delivery Room Air Room Air Room Air 07/19/20 07/19/20 07/20/20 07/20/20 19:17 20:00 00:00 01:03 Temp 35.9 36.9 Pulse 81 77 92 Resp 18 18 B/P (MAP) 129/63 (85) 110/54 (72) Pulse Ox 97 97 O2 Delivery Room Air Room Air Room Air 07/20/20 07/20/20 07/20/20 07/20/20 04:59 07:00 08:00 08:09 Temp 37.0 36.3 Pulse 84 72 73 Resp 18 20 B/P (MAP) 120/63 (82) 106/51 (69) Pulse Ox 96 98 O2 Delivery Room Air Room Air Room Air Capillary Refill : Less Than 3 Seconds General Appearance: thin Respiratory: lungs clear, normal breath sounds Cardiovascular: no murmur, irregularly irregular Gastrointestinal: normal bowel sounds, non tender, soft Extremities: no pedal edema Neurologic/Psychiatric: alert, normal mood/affect Skin: normal color, warm/dry Assessment/Plan Assessment/Plan Admission Status: Inpatient Order (span 2 midnights) Reason for Inpatient Admission: Severe hypokalemia with a fib RVR and underlying malignancy (1) Weakness Status: Acute Assessment & Plan: Likely due to hypokalemia from diarrhea, replacing and monitor (2) Paroxysmal atrial fibrillation Status: Chronic Assessment & Plan: Resume home cardizem (3) Hypokalemia Status: Acute Assessment & Plan: Replacing, will likely need supplement on d/c due to persistent diarrhea. (4) Atrial fibrillation with RVR Status: Acute Assessment & Plan: Improved, resume home cardizem. Not on anticoagulation due to rectal bleeding. (5) Severe diarrhea Status: Acute Assessment & Plan: Continue cholestyramine, add lomotil and probiotic. (6) Rectal adenocarcinoma Status: Acute Assessment & Plan: Still awaiting third biopsy for depth of invasion. (7) Thrombocytosis Status: Resolved (8) Acute blood loss anemia Status: Acute Assessment & Plan: Due to rectal bleeding/carcinoma. (9) DVT prophylaxis Status: Acute Assessment & Plan: No pharmacologic due to rectal bleeding. DOMINICK NICHOLS MD Jul 20, 2020 11:12
[2020-07-20] MEDS ORDERED: COLESTIPOL 1 GM (COLESTID) TAB PO PRN (11:30)
--- NOTE | 2020-07-20 11:56 | Consultation-Cardiology ---
HPI-Cardiology Cardiology Consultation Date of Consultation 07/20/20 Date of Admission Time Seen by Provider: 09:10 Indication: atrial fibrillation HPI 74-year-old lady with recently diagnosed colorectal tumor, possible cancer, atrial fibrillation, was discharged home and scheduled to follow-up with a surgeon in . She has been having increasing weakness and loss of energy, slid down the wall to the floor at home and brought by her due to generalized weakness and loss of energy. Denied any chest pain. Denied any palpitation. Denied any syncope or near syncopal episodes Home Medications & Allergies Allergies: Coded Allergies: Penicillins (Verified Allergy, Intermediate, 07/02/20) Home Medication List Reviewed: Yes [id number] Hx Patient Social History Marital Status: Recreational Drug Use: No Smoking Status: Former Smoker Type Used: Cigarettes Recent Hopitalizations: Yes (07/03/20-07/07/20) Alcohol Use?: Yes Past Medical History discussed below Review of Systems-General Review of Systems Constitutional: see HPI; No fever; malaise, weakness EENTM: see HPI, no symptoms reported Respiratory: see HPI; No cough; dyspnea on exertion; No hemoptysis, No orthopnea, No phlegm, No short of breath, No stridor, No wheezing, No other Cardiovascular: see HPI, chest pain (when she has palpitations); No edema, No Hx of Intervention; palpitations; No syncope, No vascular heart diseas, No other Gastrointestinal: no symptoms reported, see HPI, abdominal pain, diarrhea Genitourinary: no symptoms reported, see HPI; No dysuria Musculoskeletal: no symptoms reported Skin: no symptoms reported, see HPI Psychiatric/Neurological: No Symptoms Reported All Other Systems Reviewed Negative Unless Noted: Yes Reviewed Test Results Reviewed Test Results Lab Laboratory Tests Test 07/19/20 13:40 07/20/20 05:27 Range/Units Urine Color YELLOW Urine Clarity CLEAR Urine pH 6.0 5-9 Urine Specific [place] >=1.030 1.016-1.022 Urine Protein TRACE H NEGATIVE Urine Glucose (UA) NEGATIVE NEGATIVE Urine Ketones NEGATIVE NEGATIVE Urine Nitrite NEGATIVE NEGATIVE Urine Bilirubin NEGATIVE NEGATIVE Urine Urobilinogen 0.2 < = 1.0 MG/DL Urine Leukocyte Esterase NEGATIVE NEGATIVE Urine RBC (Auto) NEGATIVE NEGATIVE Urine RBC NONE /HPF Urine WBC 0-2 /HPF Urine Squamous Epithelial Cells 0-2 /HPF Urine Crystals NONE /LPF Urine Bacteria NEGATIVE /HPF Urine Casts NONE /LPF Urine Mucus SMALL H /LPF Urine Culture Indicated NO White Blood Count 8.4 4.3-11.0 10^3/uL Red Blood Count 3.96 3.80-5.11 10^6/uL Hemoglobin 9.6 L 11.5-16.0 g/dL Hematocrit 31 L 35-52 % Mean Corpuscular Volume 79 L 80-99 fL Mean Corpuscular Hemoglobin 24 L 25-34 pg Mean Corpuscular Hemoglobin Concent 31 L 32-36 g/dL Red Cell Distribution Width 26.6 H 10.0-14.5 % Platelet Count 350 130-400 10^3/uL Mean Platelet Volume 9.0 9.0-12.2 fL Immature Granulocyte % (Auto) 1 % Neutrophils (%) (Auto) 80 H 42-75 % Lymphocytes (%) (Auto) 8 L 12-44 % Monocytes (%) (Auto) 10 0-12 % Eosinophils (%) (Auto) 2 0-10 % Basophils (%) (Auto) 0 0-10 % Neutrophils # (Auto) 6.7 1.8-7.8 10^3/uL Lymphocytes # (Auto) 0.6 L 1.0-4.0 10^3/uL Monocytes # (Auto) 0.9 0.0-1.0 10^3/uL Eosinophils # (Auto) 0.2 0.0-0.3 10^3/uL Basophils # (Auto) 0.0 0.0-0.1 10^3/uL Immature Granulocyte # (Auto) 0.0 0.0-0.1 10^3/uL Sodium Level 138 135-145 MMOL/L Potassium Level 3.4 L 3.6-5.0 MMOL/L Chloride Level 108 H 98-107 MMOL/L Carbon Dioxide Level 23 21-32 MMOL/L Anion Gap 7 5-14 MMOL/L Blood Urea Nitrogen 9 7-18 MG/DL Creatinine 0.61 0.60-1.30 MG/DL Estimat Glomerular Filtration Rate > 60 BUN/Creatinine Ratio 15 Glucose Level 111 H 70-105 MG/DL Calcium Level 7.9 L 8.5-10.1 MG/DL Corrected Calcium 9.2 8.5-10.1 MG/DL Magnesium Level 1.8 1.6-2.4 MG/DL Total Bilirubin 0.3 0.1-1.0 MG/DL Aspartate Amino Transf (AST/SGOT) 9 5-34 U/L Alanine Aminotransferase (ALT/SGPT) 12 0-55 U/L Alkaline Phosphatase 45 40-136 U/L Total Protein 4.6 L 6.4-8.2 GM/DL Albumin 2.4 L 3.2-4.5 GM/DL Radiology CXR 07/19/20 unremarkable Physical Exam Physical Exam Vital Signs Vital Signs - First Documented 07/19/20 11:10 Temp 36.2 Pulse 110 Resp 16 B/P (MAP) 125/77 (93) Pulse Ox 97 O2 Delivery Room Air Capillary Refill : Less Than 3 Seconds Height, Weight, BMI Height: '" Weight: lbs. oz. kg; 19.93 BMI Method: General Appearance: No Apparent Distress Eyes: Bilateral Eye Normal Inspection, Bilateral Eye PERRL HEENT: PERRL/EOMI, Normal ENT Inspection, Pharynx Normal Neck: Full Range of Motion, Non Tender, Supple Respiratory: Lungs Clear Cardiovascular: No Gallop, Irregularly Irregular Gastrointestinal: Non Tender, Soft Back: Normal Inspection, No CVA Tenderness Extremity: Normal Capillary Refill Neurologic/Psychiatric: Alert, Oriented x3 Skin: Normal Color Lymphatic: No Adenopathy A/P-Cardiology Admission Diagnosis Generalized weakness Paroxysmal atrial fibrillation Colorectal mass Anemia Assessment/Plan Generalized weakness and loss of energy. Admitted for monitoring Paroxysmal atrial fibrillation, and out of atrial fibrillation with rapid ventricular response,currently in sinus rhythm, heart rate and blood pressure stable. Continue to monitor Patient cannot tolerate oral anticoagulation at this time due to rectal mass and hematochezia, workup is in progress for the source of the tumor and pathology, possibility initiating chemotherapy and radiation therapy. Leukocytosis History of mild elevation of troponin with type II myocardial infarction, currently asymptomatic. Severe hypokalemia, improved with aggressive replacement, continue to monitor, managed by primary care team HI GARCIA MD Jul 20, 2020 11:56
[2020-07-20 18:36] LABS: ALBUMIN 2.6 GM/DL (3.2-4.5); CHLORIDE 104 MMOL/L (98-107); POTASSIUM 4.1 MMOL/L (3.6-5.0); SODIUM 139 MMOL/L (135-145)
[2020-07-20 18:38] LABS: CALCIUM 7.9 MG/DL (8.5-10.1)
[2020-07-20 18:39] LABS: GLUCOSE 124 MG/DL (70-105); TOTAL PROTEIN 4.8 GM/DL (6.4-8.2)
[2020-07-20 18:40] LABS: CARBON DIOXIDE 29 MMOL/L (21-32)
[2020-07-20 18:41] LABS: BILIRUBIN,TOTAL 0.1 MG/DL (0.1-1.0)
[2020-07-20 18:42] LABS: ALKALINE PHOSPHATASE 57 U/L (40-136); GFR ESTIMATED > 60
[2020-07-20 18:44] LABS: BUN/CREATININE RATIO 14
[2020-07-20 18:45] LABS: ALANINE AMINOTRANSFERASE 13 U/L (0-55)
[2020-07-21 05:41] LABS: HEMOGLOBIN 9.3 g/dL (11.5-16.0); MEAN PLATELET VOLUME 9.7 fL (9.0-12.2); WHITE BLOOD COUNT 6.8 10^3/uL (4.3-11.0)
[2020-07-21] MEDS ORDERED: KCL 20 MEQ TAB (K-DUR) PO SCH (06:00)
[2020-07-21] MEDS ORDERED: POTASSIUM CL 10MEQ/50ML IVPB 50 ML IV SCH (06:00)
[2020-07-21] MEDS ORDERED: MAGNESIUM 1 GM/100 ML IVPB 100 ML IV SCH (06:00)
[2020-07-21 06:02] LABS: CHLORIDE 106 MMOL/L (98-107); POTASSIUM 3.9 MMOL/L (3.6-5.0); SODIUM 139 MMOL/L (135-145)
[2020-07-21 06:04] LABS: CALCIUM 7.8 MG/DL (8.5-10.1); GLUCOSE 101 MG/DL (70-105)
[2020-07-21 06:05] LABS: CARBON DIOXIDE 27 MMOL/L (21-32)
[2020-07-21 06:08] LABS: CREATININE SERUM 0.59 MG/DL (0.60-1.30); GFR ESTIMATED > 60
[2020-07-21 06:09] LABS: BUN/CREATININE RATIO 14
[2020-07-21 06:10] LABS: MAGNESIUM 1.9 MG/DL (1.6-2.4)
[2020-07-21] MEDS: NS IV 1000 ML 1,000 ML IV SCH (06:23)
[2020-07-21] MEDS ORDERED: FERROUS SULF 325 MG (IRON) TAB PO SCH (07:00)
[2020-07-21 08:00] VITALS: BP 103/57
[2020-07-21] MEDS: LACTOBACILLUS ACIDOPHILUS (PROBIOTIC) CAPSULE PO SCH ×2 (08:57→12:48)
[2020-07-21] MEDS: POTASSIUM BICARB 20 MEQ (EFFER-K) TABLET PO SCH (08:58)
[2020-07-21] MEDS: dilTIAZem120 MG (CARDIZEM CD) CAP PO SCH (08:58)
[2020-07-21] MEDS ORDERED: FLUoxetine HCL 20 MG (PROzac) CAP PO SCH (09:00)
--- NOTE | 2020-07-21 09:55 | Cardiology Progress Note ---
Subjective Date Seen by Provider: Jul 21, 2020 Time Seen by Provider: 08:40 Subjective/Events-last exam Patient in bed, denies any chest pain or dizziness. Review of Systems General: No Chills, No Night Sweats; Fatigue; No Malaise, No Appetite, No Other HEENT: No Head Aches, No Visual Changes, No Eye Pain, No Ear Pain, No Dysphasia, No Sinus Congestion, No Post Nasal Drip, No Sore Throat, No Other Pulmonary: No Dyspnea, No Cough, No Pleuritic Chest Pain, No Other Cardiovascular: No: Chest Pain, Palpitations, Orthopnea, Paroxysmal Noc. Dyspnea, Edema, Lt Headedness, Other Objective-Cardiology Exam Last Set of Vital Signs Vital Signs 07/21/20 07/21/20 12:00 12:17 Temp 36.2 Pulse 81 Resp 20 B/P (MAP) 99/50 (66) Pulse Ox 97 O2 Delivery Room Air Capillary Refill : Less Than 3 Seconds I&O Intake and Output 07/21/20 00:00 Intake Total 2344 ml Balance 2344 ml Intake Oral 1294 ml IV Total 1050 ml # Voids 17 # Bowel Movements 16 General: Alert, Oriented X3, Cooperative HEENT: Atraumatic, PERRLA Neck: Supple, No JVD, No Thyromegaly Lungs: Clear to Auscultation, Normal Air Movement Heart: Regular Rate, Normal S1, Normal S2, No Murmurs Abdomen: Normal Bowel Sounds, Soft, No Tenderness, No Hepatosplenomegaly, No Masses Extremities: No Clubbing, No Cyanosis, No Edema, Normal Pulses, No Tendernes s/Swelling Skin: No Rashes, No Breakdown, No Significant Lesion Neuro: Normal Gait, Normal Speech, Strength at 5/5 X4 Ext, Normal Tone, Sensation Intact Results Lab Laboratory Tests 07/20/20 18:20 07/21/20 05:15 A/P-Cardiology Admission Diagnosis Generalized weakness Paroxysmal atrial fibrillation Colorectal mass Anemia Assessment/Plan Generalized weakness and loss of energy. Admitted for monitoring Paroxysmal atrial fibrillation, in and out of atrial fibrillation with rapid ventricular response,currently in sinus rhythm. Continue to monitor Hypotensive this morning, continue to monitor. Patient cannot tolerate oral anticoagulation at this time due to rectal mass and hematochezia, workup is in progress for the source of the tumor and pathology, possibility initiating chemotherapy and radiation therapy. Leukocytosis History of mild elevation of troponin with type II myocardial infarction, currently asymptomatic. Severe hypokalemia, improved with aggressive replacement, continue to monitor, managed by primary care team Patient was seen and evaluated with Indu, examination performed, management plan was discussed, agree with the current scribed note, I made few changes to the note using Italic font Patient was laying in bed, feeling slightly better No change overall, management per medical service Continue to monitor electrolytes and blood pressure INDU RODRIGUEZ Jul 21, 2020 9:55 am HI GARCIA MD Jul 21, 2020 1:08 pm
[2020-07-21] MEDS ORDERED: LACT1CAP7 PO (11:00)
[2020-07-21] MEDS ORDERED: POTA25TA PO (11:04)
--- NOTE | 2020-07-21 11:07 | Discharge Summary ---
Discharge Summary Hospital Course Problems/Diagnosis: (1) Weakness Status: Acute Assessment & Plan: Likely due to hypokalemia from diarrhea, replacing and monitor Much improved on 3 after potassium replacement, patient requesting to go home. (2) Paroxysmal atrial fibrillation Status: Chronic Assessment & Plan: Resume home cardizem (3) Hypokalemia Status: Resolved Resolution Date/Time: 07/21/20 @ 11:05 Assessment & Plan: Replacing, will likely need supplement on d/c due to persistent diarrhea. Discharged with EfferK 25 mEq BID. (4) Atrial fibrillation with RVR Status: Acute Assessment & Plan: Improved, resume home cardizem. Not on anticoagulation due to rectal bleeding. (5) Severe diarrhea Status: Acute Assessment & Plan: Continue cholestyramine, add lomotil and probiotic. 3/3 persistent at d/c, but patient reporting baseline and wanting to go home. Ordered C diff before d/c, but sample not yet available. (6) Rectal adenocarcinoma Status: Acute Assessment & Plan: Still awaiting third biopsy for depth of invasion, plan to do in [place] with colorectal surgeon. (7) Thrombocytosis Status: Acute (8) Acute blood loss anemia Status: Acute Assessment & Plan: Due to rectal bleeding/carcinoma. Hospital Course Date of Admission: Jul 19, 2020 at 16:04 Admission Diagnosis : See problem list Family Physician/Provider: Masoud Abdullahi DO Date of Discharge: 07/21/20 Discharge Diagnosis: See problem list Hospital Course: See problem list Labs and Pending Lab Test: Laboratory Tests 07/20/20 18:20: Sodium Level 139, Potassium Level 4.1, Chloride Level 104, Carbon Dioxide Level 29, Anion Gap 6, Blood Urea Nitrogen 10, Creatinine 0.70, Estimat Glomerular Filtration Rate > 60, BUN/Creatinine Ratio 14, Glucose Level 124H, Calcium Level 7.9L, Corrected Calcium 9.0, Total Bilirubin 0.1, Aspartate Amino Transf (AST/SGOT) 10, Alanine Aminotransferase (ALT/SGPT) 13, Alkaline Phosphatase 57, Total Protein 4.8L, Albumin 2.6L 07/21/20 05:15: Sodium Level 139, Potassium Level 3.9, Chloride Level 106, Carbon Dioxide Level 27, Anion Gap 6, Blood Urea Nitrogen 8, Creatinine 0.59L, Estimat Glomerular Filtration Rate > 60, BUN/Creatinine Ratio 14, Glucose Level 101, Calcium Level 7.8L, White Blood Count 6.8, Red Blood Count 3.82, Hemoglobin 9.3L, Hematocrit 30L, Mean Corpuscular Volume 79L, Mean Corpuscular Hemoglobin 24L, Mean Corpuscular Hemoglobin Concent 31L, Red Cell Distribution Width 26.6H, Platelet Count 405H, Mean Platelet Volume 9.7, Magnesium Level 1.9 Home Meds Active Effer-K 25 Meq Tablet Eff (Potassium Bicarbonate/Cit AC) 25 Meq Tablet.eff 25 Meq PO BID Acidophilus-Pectin Capsule (Lactobacillus Acidophilus/Pect) 1 Each Capsule 2 Each PO TIDWM Reported Imodium A-D (Loperamide HCl) 2 Mg Tablet 2-4 Mg PO UD PRN Ferrous Sulfate 325 Mg Tablet 325 Mg PO DAILY Dilt-Xr (Diltiazem HCl) 240 Mg Cap.er.deg 240 Mg PO DAILY Hydrocodone-Acetamin 7.5-325 (Hydrocodone/Acetaminophen) 1 Each Tablet 1 Ea PO Q4H PRN Colestipol HCl 1 Gm Tablet 2 Gm PO BID PRN TAKES 2 (1GM) TABS Fluoxetine HCl 20 Mg Capsule 20 Mg PO DAILY Assessment/Pt DC Instructions Follow up with Dr. Camarena on 07/28 at 11 am. Discharge Physical Examination Allergies: Coded Allergies: Penicillins (Verified Allergy, Intermediate, 07/02/20) General Appearance: No Apparent Distress, Thin Respiratory: Normal Breath Sounds Cardiovascular: Regular Rate, Rhythm Gastrointestinal: Normal Bowel Sounds, Non Tender, Soft Extremity: No Pedal Edema Skin: Normal Color, Warm/Dry Neurologic/Psychiatric: Alert, Normal Mood/Affect Copy Copies To 1: BLANCHE CAMARENA MD, BETHANY N MD Jul 21, 2020 11:07
[2020-07-21] MEDS ORDERED: NS IV 500 ML 0 ML ONE (11:45)
[2020-07-21 12:00] VITALS: BP 99/50
[2020-07-21] MEDS ORDERED: NS IV 500 ML 500 ML IV ONE (12:00)
[2020-07-21 14:25] VITALS: BP 99/50
--- NOTE | 2020-07-21 17:55 | Physician Query Clarification ---
"Physician Query-General Query to Physician: The medical record reflects the following clinical scenario: History/Risk factors: Chronic Diarrhea - severe for last several months, Rectal Malignancy, Clinical Findings: wt loss approx 5lbs since 07/03, weakness, electrolyte abnormalities, decreased functional status, falls, eating 50% of meals, Albumin 2.4 Treatment: Dietary monitoring, Gen/Reg Diet Question: What condition best reflects the above clinical scenario? Please document response in the Progress notes or Discharge Summary. 1. Severe protein calorie malnutrition 2. Moderate Protein Calorie malnutrition 3. Weakness (as currently documented) 4. Other , with explanation of the clinical findings 5. Clinically undetermined, no explanation for the clinical findings Please remember a lack of response to the above will prompt a phone page by CDI/coding staff In responding to this query, please exercise your independent professional judgment. The purpose of this communication is to more accurately reflect the complexity of your patients condition. The fact that a question is asked does not imply that any particular answer is desired or expected. Thank you for timely response to this clarification. Tracy Shelton, MSN, RN RN Specialist-Clinical Doc Improvement CD -Health Info Mgmt Operations [address] [facility] t: [phone] | f: [phone] If you are unable to reach me at my extension, I may be working from home. Please contact me at [phone] PHYSICIAN RESPONSE: Based on the clinical findings in the record, please respond to the query above on this document as an addendum. Physician Response: Physician Response 2 If you have questions please contact: Motorcycle Builder: Ext: Thank you for your time and cooperation. Clinical Supervisor [employer]/Motorcycle Builder This is a permanent part of the medical record TRACY SHELTON Jul 21, 2020 17:55 DOMINICK PORTER MD Jul 21, 2020 21:08"
== END 2020-07-21 14:50 | disposition home or self-care (01) | DRG 641 ==
LOC: EDUNIT# 11:10 → ER FS 11:11 → 4TH 16:04
PROVIDERS: ADMIT Family Medicine; ATTEND Family Medicine
DX: E87.6 Hypokalemia (principal); E44.0 Moderate protein-calorie malnutrition; C20 Malignant neoplasm of rectum; D62 Acute posthemorrhagic anemia; Z68.1 Body mass index [BMI] 19.9 or less, adult; I48.0 Paroxysmal atrial fibrillation; D47.3 Essential (hemorrhagic) thrombocythemia; E11.9 Type 2 diabetes mellitus without complications; L40.9 Psoriasis, unspecified; K58.9 Irritable bowel syndrome, unspecified; R19.7 Diarrhea, unspecified; M19.90 Unspecified osteoarthritis, unspecified site; D63.0 Anemia in neoplastic disease; Z88.0 Allergy status to penicillin; Z87.891 Personal history of nicotine dependence; Z90.49 Acquired absence of other specified parts of digestive tract
CPT/HCPCS: 36415; 51701; 71045; 80048; 80053; 81000; 83735; 84484; 85007; 85025; 85027; 93005

== ENCOUNTER 2020-09-28 13:55 | Outpatient (RCR) | payer MEDICARE, OTHER ==
[2020-08-11 15:53] LABS: BASOPHILS # (AUTO) 0.1 10^3/uL (0.0-0.1); BASOPHILS % (AUTO) 1 % (0-10); EOSINOPHILS # (AUTO) 0.3 10^3/uL (0.0-0.3); EOSINOPHILS % (AUTO) 3 % (0-10); HEMATOCRIT 41 % (35-52); HEMOGLOBIN 13.2 g/dL (11.5-16.0); LYMPHOCYTES # (AUTO) 0.8 10^3/uL (1.0-4.0); LYMPHOCYTES % (AUTO) 9 % (12-44); MEAN CORPUSCULAR HEMOGLOBIN 27 pg (25-34); MEAN CORPUSCULAR HGB CONC 32 g/dL (32-36); MEAN CORPUSCULAR VOLUME 84 fL (80-99); MEAN PLATELET VOLUME 8.4 fL (9.0-12.2); MONOCYTES # (AUTO) 0.9 10^3/uL (0.0-1.0); MONOCYTES % (AUTO) 10 % (0-12); NEUTROPHILS # (AUTO) 6.7 10^3/uL (1.8-7.8); NEUTROPHILS % (AUTO) 77 % (42-75); PLATELET COUNT 492 10^3/uL (130-400); WHITE BLOOD COUNT 8.7 10^3/uL (4.3-11.0)
[2020-08-11 16:08] LABS: BUN/CREATININE RATIO 23; CARBON DIOXIDE 25 MMOL/L (21-32); CHLORIDE 101 MMOL/L (98-107); CREATININE SERUM 0.71 MG/DL (0.60-1.30); GFR ESTIMATED > 60; GLUCOSE 129 MG/DL (70-105); POTASSIUM 3.9 MMOL/L (3.6-5.0); SODIUM 138 MMOL/L (135-145)
[2020-08-19 14:13] LABS: BASOPHILS % (AUTO) 1 % (0-10); EOSINOPHILS # (AUTO) 0.3 10^3/uL (0.0-0.3); EOSINOPHILS % (AUTO) 5 % (0-10); HEMATOCRIT 40 % (35-52); HEMOGLOBIN 12.6 g/dL (11.5-16.0); LYMPHOCYTES # (AUTO) 0.6 10^3/uL (1.0-4.0); LYMPHOCYTES % (AUTO) 9 % (12-44); MEAN CORPUSCULAR HEMOGLOBIN 28 pg (25-34); MEAN CORPUSCULAR HGB CONC 32 g/dL (32-36); MEAN CORPUSCULAR VOLUME 88 fL (80-99); MEAN PLATELET VOLUME 8.4 fL (9.0-12.2); MONOCYTES # (AUTO) 0.5 10^3/uL (0.0-1.0); MONOCYTES % (AUTO) 9 % (0-12); NEUTROPHILS # (AUTO) 4.8 10^3/uL (1.8-7.8); NEUTROPHILS % (AUTO) 76 % (42-75); PLATELET COUNT 335 10^3/uL (130-400); WHITE BLOOD COUNT 6.3 10^3/uL (4.3-11.0)
[2020-08-19 14:24] LABS: BUN/CREATININE RATIO 16; CALCIUM 8.9 MG/DL (8.5-10.1); CARBON DIOXIDE 32 MMOL/L (21-32); CHLORIDE 101 MMOL/L (98-107); CREATININE SERUM 0.73 MG/DL (0.60-1.30); GFR ESTIMATED > 60; GLUCOSE 223 MG/DL (70-105); POTASSIUM 4.1 MMOL/L (3.6-5.0); SODIUM 139 MMOL/L (135-145)
[2020-08-23 13:57] LABS: BASOPHILS % (AUTO) 1 % (0-10); EOSINOPHILS # (AUTO) 0.4 10^3/uL (0.0-0.3); EOSINOPHILS % (AUTO) 6 % (0-10); HEMATOCRIT 37 % (35-52); HEMOGLOBIN 11.5 g/dL (11.5-16.0); LYMPHOCYTES # (AUTO) 0.5 10^3/uL (1.0-4.0); LYMPHOCYTES % (AUTO) 8 % (12-44); MEAN CORPUSCULAR HEMOGLOBIN 28 pg (25-34); MEAN CORPUSCULAR HGB CONC 31 g/dL (32-36); MEAN CORPUSCULAR VOLUME 88 fL (80-99); MEAN PLATELET VOLUME 8.3 fL (9.0-12.2); MONOCYTES # (AUTO) 0.6 10^3/uL (0.0-1.0); MONOCYTES % (AUTO) 9 % (0-12); NEUTROPHILS # (AUTO) 4.9 10^3/uL (1.8-7.8); NEUTROPHILS % (AUTO) 77 % (42-75); PLATELET COUNT 277 10^3/uL (130-400); WHITE BLOOD COUNT 6.4 10^3/uL (4.3-11.0)
[2020-08-23 14:25] LABS: ALANINE AMINOTRANSFERASE 14 U/L (0-55); ALBUMIN 2.9 GM/DL (3.2-4.5); ALKALINE PHOSPHATASE 64 U/L (40-136); BILIRUBIN,TOTAL 0.2 MG/DL (0.1-1.0); BUN/CREATININE RATIO 16; CALCIUM 8.7 MG/DL (8.5-10.1); CARBON DIOXIDE 32 MMOL/L (21-32); CHLORIDE 99 MMOL/L (98-107); CREATININE SERUM 0.68 MG/DL (0.60-1.30); GFR ESTIMATED > 60; GLUCOSE 127 MG/DL (70-105); SODIUM 138 MMOL/L (135-145); TOTAL PROTEIN 6.2 GM/DL (6.4-8.2)
[2020-08-30 13:24] LABS: BASOPHILS % (AUTO) 1 % (0-10); EOSINOPHILS # (AUTO) 0.5 10^3/uL (0.0-0.3); EOSINOPHILS % (AUTO) 6 % (0-10); HEMATOCRIT 36 % (35-52); HEMOGLOBIN 11.6 g/dL (11.5-16.0); LYMPHOCYTES # (AUTO) 0.5 10^3/uL (1.0-4.0); LYMPHOCYTES % (AUTO) 6 % (12-44); MEAN CORPUSCULAR HEMOGLOBIN 29 pg (25-34); MEAN CORPUSCULAR HGB CONC 32 g/dL (32-36); MEAN CORPUSCULAR VOLUME 91 fL (80-99); MEAN PLATELET VOLUME 8.5 fL (9.0-12.2); MONOCYTES # (AUTO) 0.7 10^3/uL (0.0-1.0); MONOCYTES % (AUTO) 9 % (0-12); NEUTROPHILS # (AUTO) 6.4 10^3/uL (1.8-7.8); NEUTROPHILS % (AUTO) 79 % (42-75); PLATELET COUNT 357 10^3/uL (130-400); WHITE BLOOD COUNT 8.1 10^3/uL (4.3-11.0)
[2020-08-30 13:46] LABS: ALANINE AMINOTRANSFERASE 10 U/L (0-55); ALBUMIN 3.1 GM/DL (3.2-4.5); ALKALINE PHOSPHATASE 67 U/L (40-136); BILIRUBIN,TOTAL 0.2 MG/DL (0.1-1.0); BUN/CREATININE RATIO 14; CARBON DIOXIDE 32 MMOL/L (21-32); CHLORIDE 101 MMOL/L (98-107); CREATININE SERUM 0.69 MG/DL (0.60-1.30); GFR ESTIMATED > 60; GLUCOSE 124 MG/DL (70-105); POTASSIUM 4.1 MMOL/L (3.6-5.0); SODIUM 138 MMOL/L (135-145); TOTAL PROTEIN 6.5 GM/DL (6.4-8.2)
[2020-09-06 13:41] LABS: BASOPHILS # (AUTO) 0.1 10^3/uL (0.0-0.1); BASOPHILS % (AUTO) 1 % (0-10); EOSINOPHILS # (AUTO) 0.7 10^3/uL (0.0-0.3); EOSINOPHILS % (AUTO) 11 % (0-10); HEMATOCRIT 38 % (35-52); HEMOGLOBIN 11.9 g/dL (11.5-16.0); LYMPHOCYTES # (AUTO) 0.5 10^3/uL (1.0-4.0); LYMPHOCYTES % (AUTO) 8 % (12-44); MEAN CORPUSCULAR HEMOGLOBIN 29 pg (25-34); MEAN CORPUSCULAR HGB CONC 32 g/dL (32-36); MEAN CORPUSCULAR VOLUME 92 fL (80-99); MEAN PLATELET VOLUME 8.3 fL (9.0-12.2); MONOCYTES # (AUTO) 0.7 10^3/uL (0.0-1.0); MONOCYTES % (AUTO) 11 % (0-12); NEUTROPHILS # (AUTO) 4.8 10^3/uL (1.8-7.8); NEUTROPHILS % (AUTO) 70 % (42-75); PLATELET COUNT 322 10^3/uL (130-400); WHITE BLOOD COUNT 6.9 10^3/uL (4.3-11.0)
[2020-09-06 13:59] LABS: BUN/CREATININE RATIO 17; CALCIUM 9.2 MG/DL (8.5-10.1); CARBON DIOXIDE 26 MMOL/L (21-32); CHLORIDE 102 MMOL/L (98-107); CREATININE SERUM 0.71 MG/DL (0.60-1.30); GFR ESTIMATED > 60; GLUCOSE 82 MG/DL (70-105); SODIUM 137 MMOL/L (135-145)
[~2020-09-28 13:55] MED LIST changes: +COLE1TAB PO; +DILT240C47 PO; +FERR325T18 PO; +HYDR-3817 PO; +LACT1CAP7 PO; +LOPE-134 PO; +NS IV 1000 ML (CANCER CTR) 1,000 ML ONE; +NS IV 500 ML (CANCER CENTER) 0 ML ONE; +POTA25TA PO; +morphine INJ 4 MG/ML 1 ML (CANCER CTR) IV PRN; +morphine INJ 4 MG/ML 1 ML (CANCER CTR) ONE
[2020-09-28 14:07] LABS: BASOPHILS # (AUTO) 0.1 10^3/uL (0.0-0.1); BASOPHILS % (AUTO) 1 % (0-10); EOSINOPHILS # (AUTO) 0.3 10^3/uL (0.0-0.3); EOSINOPHILS % (AUTO) 5 % (0-10); HEMATOCRIT 40 % (35-52); HEMOGLOBIN 12.9 g/dL (11.5-16.0); LYMPHOCYTES # (AUTO) 0.7 10^3/uL (1.0-4.0); LYMPHOCYTES % (AUTO) 11 % (12-44); MEAN CORPUSCULAR HEMOGLOBIN 32 pg (25-34); MEAN CORPUSCULAR HGB CONC 32 g/dL (32-36); MEAN CORPUSCULAR VOLUME 99 fL (80-99); MEAN PLATELET VOLUME 8.6 fL (9.0-12.2); MONOCYTES # (AUTO) 0.9 10^3/uL (0.0-1.0); MONOCYTES % (AUTO) 14 % (0-12); NEUTROPHILS # (AUTO) 4.4 10^3/uL (1.8-7.8); NEUTROPHILS % (AUTO) 70 % (42-75); PLATELET COUNT 244 10^3/uL (130-400); WHITE BLOOD COUNT 6.3 10^3/uL (4.3-11.0)
[2020-09-28 14:32] LABS: ALANINE AMINOTRANSFERASE 13 U/L (0-55); ALBUMIN 3.6 GM/DL (3.2-4.5); ALKALINE PHOSPHATASE 66 U/L (40-136); BILIRUBIN,TOTAL 0.2 MG/DL (0.1-1.0); BUN/CREATININE RATIO 17; CALCIUM 8.9 MG/DL (8.5-10.1); CARBON DIOXIDE 29 MMOL/L (21-32); CHLORIDE 104 MMOL/L (98-107); CREATININE SERUM 0.75 MG/DL (0.60-1.30); GFR ESTIMATED > 60; GLUCOSE 80 MG/DL (70-105); POTASSIUM 3.9 MMOL/L (3.6-5.0); SODIUM 141 MMOL/L (135-145); TOTAL PROTEIN 6.6 GM/DL (6.4-8.2)
== END 2020-10-10 | disposition home or self-care (01) ==
LOC: ONC 13:55
PROVIDERS: ATTEND Internal Medicine Hematology & Oncology
DX: N28.89 Other specified disorders of kidney and ureter (principal); D50.9 Iron deficiency anemia, unspecified; I48.91 Unspecified atrial fibrillation
CPT/HCPCS: 77300; 77301; 77338; G0463; 36415; 77336; 77386; 80048; 80053; 82378; 85025; 96360; 96361; 96374; 99213

== ENCOUNTER 2020-12-08 13:39 | Outpatient (CLI) | payer MEDICARE, OTHER ==
[~2020-12-08] VITALS: Ht 152.4 cm; Wt 51.8 kg
[~2020-12-08 13:39] MED LIST changes: -NS IV 1000 ML (CANCER CTR) 1,000 ML ONE; -NS IV 500 ML (CANCER CENTER) 0 ML ONE; -morphine INJ 4 MG/ML 1 ML (CANCER CTR) IV PRN; -morphine INJ 4 MG/ML 1 ML (CANCER CTR) ONE
[2020-12-09] MEDS ORDERED: ACHD5005 PO ×2 (11:56)
[2020-12-09] MEDS ORDERED: TRAM-42 PO ×2 (12:13)
== END 2020-12-08 14:01 | disposition home or self-care (01) ==
LOC: PREOP 13:39
PROVIDERS: ATTEND Surgery
DX: Z01.818 Encounter for other preprocedural examination (principal)

== ENCOUNTER 2020-12-09 11:33 | Day surgery (SDC) | payer MEDICARE, OTHER ==
[2020-12-09] VITALS (7 sets, daily range): BP systolic 122–162; BP diastolic 54–85
[~2020-12-09] VITALS: Ht 152.4 cm; Wt 51.8 kg
--- NOTE | 2020-12-09 11:51 | Progress Note-Pre Operative ---
Pre-Operative Progress Note H&P Reviewed The H&P was reviewed, patient examined and no changes noted. Date Seen by Provider: Dec 09, 2020 Time Seen by Provider: 11:45 Date H&P Reviewed: Dec 09, 2020 Time H&P Reviewed: 11:45 Pre-Operative Diagnosis: rectal cancer ANAHI MACK MD Dec 09, 2020 11:51
--- NOTE | 2020-12-09 11:53 | Discharge Inst-Surgical ---
D/C Lap Instructions-MARTINA New, Converted, or Re-Newed RX: RX on Chart Follow Up PRN Activity as tolerated Regular Diet Symptoms to Report: Fever over 101 degree F, Nausea/Vomiting Infection Signs and Symptoms to report: Increased redness, Foul odor of wound, Increased drainage Bathing instructions: May shower Operative Area Clean/Dry; Keep incision clean/dry If any problems/questions: Contact your physician or go to Emergency Room ANAHI MACK MD Dec 09, 2020 11:53
[2020-12-09] MEDS ORDERED: ACHD5005 PO ×2 (11:56)
[2020-12-09] MEDS ORDERED: ONDANSETRON 4 MG/2 ML (SDV) Z0FRAN IVP PRN ×2 (12:00→15:30)
[2020-12-09] MEDS ORDERED: ACETAMINOPHEN 325 MG TABLET PO PRN (12:00)
[2020-12-09] MEDS ORDERED: HYDROcodone/APAP 5 MG/325 MG (LORTAB) TAB PO ONE (12:00)
[2020-12-09] MEDS ORDERED: LACTATED RINGERS 1,000 ML IV PRN (12:00)
[2020-12-09] MEDS ORDERED: CLINDAMYCIN 600 MG/50 ML IVPB 50 ML IV ONE (12:00)
[2020-12-09] MEDS ORDERED: morphine INJ 10 MG/ML 1ML (SYR OR VIAL) IVP PRN ×2 (12:00)
[2020-12-09] MEDS ORDERED: TRAM-42 PO ×2 (12:13)
[2020-12-09] MEDS ORDERED: 0.9% SODIUM CHLORIDE PF INJ 20 ML VIAL ONE (12:46)
[2020-12-09] MEDS ORDERED: LIDOCAINE/EPI 1%-1:100,000 (XYLOCAINE) 20ML ONE (12:47)
[2020-12-09] MEDS ORDERED: HEParin (CENTRAL IV FLUSH) 500 UNIT/5 ML SYR ONE (12:47)
--- NOTE | 2020-12-09 15:00 | Progress Note-Post Operative ---
Post-Operative Progess Note Surgeon (s)/Automatic I Threading Machine Feeder (s) Surgeon ANAHI MACK MD Automatic I Threading Machine Feeder: yasmany khan FRONT END SOFTWARE ENGINEER Pre-Operative Diagnosis rectal cancer Post-Operative Diagnosis same Procedure & Operative Findings Date of Procedure 12/09/20 Procedure Performed/Findings groshong implantable catheter placement under flouroscopy. Anesthesia Type mac with local Estimated Blood Loss Estimated blood loss (mL): minimal Specimens/Packing Specimens Removed none ANAHI MACK MD Dec 09, 2020 15:00
--- NOTE | 2020-12-09 15:19 | Anesthesia-General Post-Op ---
MAC Patient Condition Mental Status/LOC: Same as Preop Cardiovascular: Satisfactory Nausea/Vomiting: Absent Respiratory: Satisfactory Pain: Controlled Complications: Absent Post Op Complications Complications None Follow Up Care/Instructions Patient Instructions None needed. Anesthesiology Discharge Order Discharge Order Patient is doing well, no complaints, stable vital signs, no apparent adverse anesthesia problems. No complications reported per nursing. ARELY MONTELONGO CRNA Dec 09, 2020 15:19
[2020-12-09] MEDS ORDERED: MEPERIDINE (DEMEROL) INJ 50 MG/ML IVP ONE (15:30)
[2020-12-09] MEDS ORDERED: morphine INJ 10 MG/ML 1ML (SYR OR VIAL) IVP ONE (15:30)
--- NOTE | 2020-12-09 15:49 | Diagnostic Imaging Report ---
INDICATION: Central line placement EXAM: Portable chest at 3:35 PM Left subclavian Port-A-Cath tip projects over the SVC. Heart size and pulmonary vascularity are normal. Lungs are clear. There are no effusions or pneumothoraces. IMPRESSION: No acute abnormalities in the chest. Dictated by: Dictated on workstation # [id number]
--- NOTE | 2020-12-09 15:56 | OPERATIVE REPORT ---
DATE OF SERVICE: 12/09/2020 ATTENDING PRIMARY CARE PHYSICIAN: Dr. Lara. PREOPERATIVE DIAGNOSIS: Rectal cancer. POSTOPERATIVE DIAGNOSIS: Rectal cancer. PROCEDURE: Placement of left subclavian Groshong implantable catheter under fluoroscopy. SURGEON: Anahi Mack MD CELL TECHNICIAN: Nathan Ledesma APRN. ANESTHESIA: Monitored anesthesia care with local. ESTIMATED BLOOD LOSS: Minimal. FINDINGS: Catheter tip at superior vena cava - right atrial junction. DISPOSITION: The patient tolerated the procedure well. INDICATIONS: The patient is a 75-year-old female known to us. She developed rectal bleeding in 06/2020. She underwent a colonoscopy and is found to have a large rectal mass 5 cm from the anal verge. 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 She was referred to [facility] and underwent a laparoscopic abdominoperineal resection as well as placement of end ileostomy. She was then again seen by Oncology and the recommendation was to proceed with chemotherapy. She will require Groshong implantable catheter. DESCRIPTION OF PROCEDURE: The patient was brought to the operating room, laid supine on the table. After adequate IV pain and sedative medications and monitored anesthesia care, the chest and neck were prepped and draped in standard surgical fashion. A 1% lidocaine with epinephrine was used to anesthetize the left subclavian region. Left subclavian vein was then cannulated with drawing of venous blood. Guidewire was then inserted under fluoroscopy. Cannulating needle removed and a skin incision made using a 15 blade. The dilator and sheath were then placed over the guidewire. The guidewire and the dilator were then removed, and the catheter was placed through the sheath until the catheter tip was at the superior vena cava - right atrial junction. The sheath was then removed. The inner wire within the catheter was then removed and the catheter cut down to size and the port placed on the catheter. The chest reservoir was then created by extending the incision laterally using a 15 blade. A plane was then created between the subcutaneous fat and the anterior pectoralis fascia using blunt dissection with electrocautery with visualization of good hemostasis. The port was then placed into the chest reservoir and sutured to the anterior pectoralis fascia using interrupted 3-0 Vicryl sutures. The subcutaneous tissue was then reapproximated using 3-0 Vicryl interrupted sutures. Skin was closed using 4-0 Monocryl running subcuticular suture. Wound was then cleaned and covered with Dermabond. The patient tolerated the procedure well. We will get a post-procedure chest x-ray and once confirmation of placement, the port may be accessed and used at any time. Job ID: [id number] DocumentID: [id number] Dictated Date: 12/09/2020 15:07:08 Project Management Intern Date: 12/09/2020 15:55:56 Dictated By: ANAHI MACK MD
--- NOTE | 2020-12-09 16:23 | Diagnostic Imaging Report ---
INDICATION: Fluoroscopy for port placement. Eight seconds of actual fluoroscopy time were utilized during port catheter placement. IMPRESSION: Fluoroscopy utilized during catheter placement. Dictated by: Dictated on workstation # [id number]
== END 2020-12-09 16:40 ==
LOC: SDC 11:33
PROVIDERS: ATTEND Surgery
DX: C20 Malignant neoplasm of rectum (principal); I10 Essential (primary) hypertension; E11.9 Type 2 diabetes mellitus without complications; K58.9 Irritable bowel syndrome, unspecified; I48.91 Unspecified atrial fibrillation; L40.50 Arthropathic psoriasis, unspecified; Z79.899 Other long term (current) drug therapy; Z87.891 Personal history of nicotine dependence; Z85.038 Personal history of other malignant neoplasm of large intestine; Z90.49 Acquired absence of other specified parts of digestive tract; Z80.1 Family history of malignant neoplasm of trachea, bronchus and lung
CPT/HCPCS: 36561; 71045; 76000; 87081; C1788

== ENCOUNTER 2021-02-22 13:28 | Outpatient (RCR) | payer MEDICARE, OTHER ==
[2020-11-30 14:27] LABS: BASOPHILS # (AUTO) 0.1 10^3/uL (0.0-0.1); BASOPHILS % (AUTO) 1 % (0-10); EOSINOPHILS # (AUTO) 0.4 10^3/uL (0.0-0.3); EOSINOPHILS % (AUTO) 5 % (0-10); HEMATOCRIT 43 % (35-52); HEMOGLOBIN 14.1 g/dL (11.5-16.0); LYMPHOCYTES # (AUTO) 0.8 10^3/uL (1.0-4.0); LYMPHOCYTES % (AUTO) 9 % (12-44); MEAN CORPUSCULAR HEMOGLOBIN 32 pg (25-34); MEAN CORPUSCULAR HGB CONC 33 g/dL (32-36); MEAN CORPUSCULAR VOLUME 99 fL (80-99); MEAN PLATELET VOLUME 8.9 fL (9.0-12.2); MONOCYTES # (AUTO) 0.8 10^3/uL (0.0-1.0); MONOCYTES % (AUTO) 10 % (0-12); NEUTROPHILS # (AUTO) 6.1 10^3/uL (1.8-7.8); NEUTROPHILS % (AUTO) 74 % (42-75); PLATELET COUNT 381 10^3/uL (130-400); WHITE BLOOD COUNT 8.3 10^3/uL (4.3-11.0)
[2020-11-30 14:48] LABS: BILIRUBIN,TOTAL 0.2 MG/DL (0.1-1.0); CALCIUM 9.8 MG/DL (8.5-10.1); CREATININE SERUM 1.02 MG/DL (0.60-1.30); POTASSIUM 4.5 MMOL/L (3.6-5.0); TOTAL PROTEIN 7.8 GM/DL (6.4-8.2)
[2020-12-20 15:41] LABS: BASOPHILS # (AUTO) 0.1 10^3/uL (0.0-0.1); BASOPHILS % (AUTO) 1 % (0-10); EOSINOPHILS # (AUTO) 0.4 10^3/uL (0.0-0.3); EOSINOPHILS % (AUTO) 5 % (0-10); HEMATOCRIT 43 % (35-52); HEMOGLOBIN 14.2 g/dL (11.5-16.0); LYMPHOCYTES # (AUTO) 0.8 10^3/uL (1.0-4.0); LYMPHOCYTES % (AUTO) 10 % (12-44); MEAN CORPUSCULAR HEMOGLOBIN 32 pg (25-34); MEAN CORPUSCULAR HGB CONC 33 g/dL (32-36); MEAN CORPUSCULAR VOLUME 97 fL (80-99); MEAN PLATELET VOLUME 9.1 fL (9.0-12.2); MONOCYTES # (AUTO) 0.7 10^3/uL (0.0-1.0); MONOCYTES % (AUTO) 9 % (0-12); NEUTROPHILS % (AUTO) 75 % (42-75); PLATELET COUNT 311 10^3/uL (130-400)
[2020-12-20 15:53] LABS: ALBUMIN 3.9 GM/DL (3.2-4.5); BILIRUBIN,TOTAL 0.2 MG/DL (0.1-1.0); CALCIUM 9.3 MG/DL (8.5-10.1); CREATININE SERUM 1.08 MG/DL (0.60-1.30); POTASSIUM 4.1 MMOL/L (3.6-5.0); TOTAL PROTEIN 7.8 GM/DL (6.4-8.2)
[2020-12-28 10:26] LABS: BASOPHILS % (AUTO) 0 % (0-10); EOSINOPHILS # (AUTO) 0.5 10^3/uL (0.0-0.3); EOSINOPHILS % (AUTO) 5 % (0-10); HEMATOCRIT 45 % (35-52); HEMOGLOBIN 14.8 g/dL (11.5-16.0); LYMPHOCYTES # (AUTO) 0.9 10^3/uL (1.0-4.0); LYMPHOCYTES % (AUTO) 8 % (12-44); MEAN CORPUSCULAR HEMOGLOBIN 32 pg (25-34); MEAN CORPUSCULAR HGB CONC 33 g/dL (32-36); MEAN CORPUSCULAR VOLUME 96 fL (80-99); MEAN PLATELET VOLUME 9.1 fL (9.0-12.2); MONOCYTES # (AUTO) 1.2 10^3/uL (0.0-1.0); MONOCYTES % (AUTO) 12 % (0-12); NEUTROPHILS # (AUTO) 7.9 10^3/uL (1.8-7.8); NEUTROPHILS % (AUTO) 75 % (42-75); PLATELET COUNT 263 10^3/uL (130-400); WHITE BLOOD COUNT 10.6 10^3/uL (4.3-11.0)
[2020-12-28 10:44] LABS: CALCIUM 9.8 MG/DL (8.5-10.1); CREATININE SERUM 1.19 MG/DL (0.60-1.30)
[2021-01-04 10:33] LABS: BASOPHILS # (AUTO) 0.1 10^3/uL (0.0-0.1); BASOPHILS % (AUTO) 1 % (0-10); EOSINOPHILS # (AUTO) 0.8 10^3/uL (0.0-0.3); EOSINOPHILS % (AUTO) 6 % (0-10); HEMATOCRIT 46 % (35-52); HEMOGLOBIN 15.5 g/dL (11.5-16.0); LYMPHOCYTES # (AUTO) 1.1 10^3/uL (1.0-4.0); LYMPHOCYTES % (AUTO) 9 % (12-44); MEAN CORPUSCULAR HEMOGLOBIN 32 pg (25-34); MEAN CORPUSCULAR HGB CONC 34 g/dL (32-36); MEAN CORPUSCULAR VOLUME 94 fL (80-99); MEAN PLATELET VOLUME 8.6 fL (9.0-12.2); MONOCYTES # (AUTO) 1.2 10^3/uL (0.0-1.0); MONOCYTES % (AUTO) 10 % (0-12); NEUTROPHILS # (AUTO) 8.9 10^3/uL (1.8-7.8); NEUTROPHILS % (AUTO) 73 % (42-75); PLATELET COUNT 282 10^3/uL (130-400); WHITE BLOOD COUNT 12.2 10^3/uL (4.3-11.0)
[2021-01-04 10:46] LABS: CALCIUM 10.1 MG/DL (8.5-10.1); CREATININE SERUM 1.4 MG/DL (0.60-1.30); POTASSIUM 4.5 MMOL/L (3.6-5.0)
[2021-01-17 14:46] LABS: BASOPHILS # (AUTO) 0.1 10^3/uL (0.0-0.1); BASOPHILS % (AUTO) 1 % (0-10); EOSINOPHILS # (AUTO) 0.9 10^3/uL (0.0-0.3); EOSINOPHILS % (AUTO) 11 % (0-10); HEMATOCRIT 40 % (35-52); HEMOGLOBIN 13.4 g/dL (11.5-16.0); LYMPHOCYTES % (AUTO) 11 % (12-44); MEAN CORPUSCULAR HEMOGLOBIN 32 pg (25-34); MEAN CORPUSCULAR HGB CONC 34 g/dL (32-36); MEAN CORPUSCULAR VOLUME 95 fL (80-99); MEAN PLATELET VOLUME 8.7 fL (9.0-12.2); MONOCYTES # (AUTO) 1.4 10^3/uL (0.0-1.0); MONOCYTES % (AUTO) 16 % (0-12); NEUTROPHILS # (AUTO) 5.4 10^3/uL (1.8-7.8); NEUTROPHILS % (AUTO) 61 % (42-75); PLATELET COUNT 208 10^3/uL (130-400); WHITE BLOOD COUNT 8.8 10^3/uL (4.3-11.0)
[2021-01-17 15:05] LABS: ALBUMIN 3.8 GM/DL (3.2-4.5); BILIRUBIN,TOTAL 0.2 MG/DL (0.1-1.0); CALCIUM 9.8 MG/DL (8.5-10.1); CREATININE SERUM 0.96 MG/DL (0.60-1.30); MAGNESIUM 2.2 MG/DL (1.6-2.4); POTASSIUM 4.4 MMOL/L (3.6-5.0)
[2021-01-25 13:10] LABS: BASOPHILS # (AUTO) 0.1 10^3/uL (0.0-0.1); BASOPHILS % (AUTO) 0 % (0-10); EOSINOPHILS # (AUTO) 0.8 10^3/uL (0.0-0.3); EOSINOPHILS % (AUTO) 6 % (0-10); HEMATOCRIT 41 % (35-52); HEMOGLOBIN 13.7 g/dL (11.5-16.0); LYMPHOCYTES % (AUTO) 7 % (12-44); MEAN CORPUSCULAR HEMOGLOBIN 33 pg (25-34); MEAN CORPUSCULAR HGB CONC 34 g/dL (32-36); MEAN CORPUSCULAR VOLUME 98 fL (80-99); MEAN PLATELET VOLUME 8.9 fL (9.0-12.2); MONOCYTES # (AUTO) 1.6 10^3/uL (0.0-1.0); MONOCYTES % (AUTO) 12 % (0-12); NEUTROPHILS # (AUTO) 9.9 10^3/uL (1.8-7.8); NEUTROPHILS % (AUTO) 73 % (42-75); PLATELET COUNT 212 10^3/uL (130-400); WHITE BLOOD COUNT 13.5 10^3/uL (4.3-11.0)
[2021-01-25 13:29] LABS: CALCIUM 9.7 MG/DL (8.5-10.1); CREATININE SERUM 1.07 MG/DL (0.60-1.30); POTASSIUM 4.5 MMOL/L (3.6-5.0)
[2021-02-01 13:14] LABS: BASOPHILS # (AUTO) 0.1 10^3/uL (0.0-0.1); BASOPHILS % (AUTO) 1 % (0-10); EOSINOPHILS # (AUTO) 0.3 10^3/uL (0.0-0.3); EOSINOPHILS % (AUTO) 3 % (0-10); HEMATOCRIT 40 % (35-52); HEMOGLOBIN 13.5 g/dL (11.5-16.0); LYMPHOCYTES # (AUTO) 0.6 10^3/uL (1.0-4.0); LYMPHOCYTES % (AUTO) 6 % (12-44); MEAN CORPUSCULAR HEMOGLOBIN 33 pg (25-34); MEAN CORPUSCULAR HGB CONC 34 g/dL (32-36); MEAN CORPUSCULAR VOLUME 97 fL (80-99); MEAN PLATELET VOLUME 8.7 fL (9.0-12.2); MONOCYTES # (AUTO) 1.1 10^3/uL (0.0-1.0); MONOCYTES % (AUTO) 12 % (0-12); NEUTROPHILS # (AUTO) 7.3 10^3/uL (1.8-7.8); NEUTROPHILS % (AUTO) 78 % (42-75); PLATELET COUNT 218 10^3/uL (130-400); WHITE BLOOD COUNT 9.5 10^3/uL (4.3-11.0)
[2021-02-01 13:42] LABS: CALCIUM 9.5 MG/DL (8.5-10.1); CREATININE SERUM 1.18 MG/DL (0.60-1.30); POTASSIUM 3.9 MMOL/L (3.6-5.0)
[2021-02-08 15:03] LABS: BASOPHILS # (AUTO) 0.1 10^3/uL (0.0-0.1); BASOPHILS % (AUTO) 1 % (0-10); EOSINOPHILS # (AUTO) 0.6 10^3/uL (0.0-0.3); EOSINOPHILS % (AUTO) 8 % (0-10); HEMATOCRIT 38 % (35-52); HEMOGLOBIN 12.9 g/dL (11.5-16.0); LYMPHOCYTES # (AUTO) 0.9 10^3/uL (1.0-4.0); LYMPHOCYTES % (AUTO) 12 % (12-44); MEAN CORPUSCULAR HEMOGLOBIN 33 pg (25-34); MEAN CORPUSCULAR HGB CONC 34 g/dL (32-36); MEAN CORPUSCULAR VOLUME 96 fL (80-99); MEAN PLATELET VOLUME 8.9 fL (9.0-12.2); MONOCYTES # (AUTO) 1.2 10^3/uL (0.0-1.0); MONOCYTES % (AUTO) 15 % (0-12); NEUTROPHILS # (AUTO) 5.1 10^3/uL (1.8-7.8); NEUTROPHILS % (AUTO) 64 % (42-75); PLATELET COUNT 189 10^3/uL (130-400); WHITE BLOOD COUNT 7.9 10^3/uL (4.3-11.0)
[2021-02-08 15:32] LABS: ALBUMIN 3.7 GM/DL (3.2-4.5); BILIRUBIN,TOTAL 0.2 MG/DL (0.1-1.0); CALCIUM 9.4 MG/DL (8.5-10.1); CREATININE SERUM 1.04 MG/DL (0.60-1.30); MAGNESIUM 2.1 MG/DL (1.6-2.4); POTASSIUM 4.3 MMOL/L (3.6-5.0); TOTAL PROTEIN 6.9 GM/DL (6.4-8.2)
[2021-02-15 13:05] LABS: BASOPHILS % (AUTO) 0 % (0-10); EOSINOPHILS # (AUTO) 0.4 10^3/uL (0.0-0.3); EOSINOPHILS % (AUTO) 5 % (0-10); HEMATOCRIT 41 % (35-52); HEMOGLOBIN 13.8 g/dL (11.5-16.0); LYMPHOCYTES # (AUTO) 0.8 10^3/uL (1.0-4.0); LYMPHOCYTES % (AUTO) 9 % (12-44); MEAN CORPUSCULAR HEMOGLOBIN 33 pg (25-34); MEAN CORPUSCULAR HGB CONC 34 g/dL (32-36); MEAN CORPUSCULAR VOLUME 99 fL (80-99); MONOCYTES # (AUTO) 1.2 10^3/uL (0.0-1.0); MONOCYTES % (AUTO) 13 % (0-12); NEUTROPHILS # (AUTO) 6.1 10^3/uL (1.8-7.8); NEUTROPHILS % (AUTO) 71 % (42-75); PLATELET COUNT 214 10^3/uL (130-400); WHITE BLOOD COUNT 8.6 10^3/uL (4.3-11.0)
[2021-02-15 13:32] LABS: CALCIUM 9.4 MG/DL (8.5-10.1); CREATININE SERUM 1.24 MG/DL (0.60-1.30); POTASSIUM 4.8 MMOL/L (3.6-5.0)
[~2021-02-22] VITALS: Ht 152.4 cm; Wt 51.7 kg
[~2021-02-22 13:28] MED LIST changes: +ACHD5005 PO; +D5W 500 ML IV (CANCER CTR) 500 ML IV SCH; +D5W IV SCH; +FOSAPREPITANT (CANCER CENTER) 150 MG in NS (IVPB) CANCER CENTER ONLY 150 ML IV SCH; +NS IV 1000 ML (CANCER CTR) 1,000 ML ONE; +OXALIPLATIN 100 MG, OXALIPLATIN (GENERIC) 20 MG in D5W 250 ML IVPB (CANCER CTR) 250 ML IV SCH; +OXALIPLATIN IV SCH; +TRAM-42 PO
[2021-02-22 13:38] LABS: BASOPHILS # (AUTO) 0.1 10^3/uL (0.0-0.1); BASOPHILS % (AUTO) 1 % (0-10); EOSINOPHILS # (AUTO) 0.4 10^3/uL (0.0-0.3); EOSINOPHILS % (AUTO) 4 % (0-10); HEMATOCRIT 37 % (35-52); HEMOGLOBIN 12.9 g/dL (11.5-16.0); LYMPHOCYTES # (AUTO) 0.9 10^3/uL (1.0-4.0); LYMPHOCYTES % (AUTO) 8 % (12-44); MEAN CORPUSCULAR HEMOGLOBIN 34 pg (25-34); MEAN CORPUSCULAR HGB CONC 35 g/dL (32-36); MEAN CORPUSCULAR VOLUME 98 fL (80-99); MEAN PLATELET VOLUME 8.9 fL (9.0-12.2); MONOCYTES # (AUTO) 0.9 10^3/uL (0.0-1.0); MONOCYTES % (AUTO) 8 % (0-12); NEUTROPHILS # (AUTO) 8.6 10^3/uL (1.8-7.8); NEUTROPHILS % (AUTO) 79 % (42-75); PLATELET COUNT 204 10^3/uL (130-400); WHITE BLOOD COUNT 10.9 10^3/uL (4.3-11.0)
[2021-02-22 13:58] LABS: CALCIUM 9.5 MG/DL (8.5-10.1); CREATININE SERUM 1.15 MG/DL (0.60-1.30); POTASSIUM 4.3 MMOL/L (3.6-5.0)
== END 2021-02-28 | disposition home or self-care (01) ==
LOC: ONC 13:28
PROVIDERS: ATTEND Internal Medicine Hematology & Oncology
DX: Z51.11 Encounter for antineoplastic chemotherapy (principal); C20 Malignant neoplasm of rectum; Z92.21 Personal history of antineoplastic chemotherapy
CPT/HCPCS: 80053; 85025; G0463; 36591; 80048; 82378; 83735; 96365; 96367; 96368; 96375; 96413; 99213

== ENCOUNTER 2021-04-26 10:44 | Outpatient (RCR) | payer MEDICARE, OTHER ==
[2021-03-01 13:12] LABS: BASOPHILS # (AUTO) 0.1 10^3/uL (0.0-0.1); BASOPHILS % (AUTO) 1 % (0-10); EOSINOPHILS # (AUTO) 0.8 10^3/uL (0.0-0.3); EOSINOPHILS % (AUTO) 9 % (0-10); HEMATOCRIT 37 % (35-52); HEMOGLOBIN 12.8 g/dL (11.5-16.0); LYMPHOCYTES % (AUTO) 12 % (12-44); MEAN CORPUSCULAR HEMOGLOBIN 34 pg (25-34); MEAN CORPUSCULAR HGB CONC 34 g/dL (32-36); MEAN CORPUSCULAR VOLUME 99 fL (80-99); MONOCYTES # (AUTO) 1.5 10^3/uL (0.0-1.0); MONOCYTES % (AUTO) 18 % (0-12); NEUTROPHILS # (AUTO) 5.3 10^3/uL (1.8-7.8); NEUTROPHILS % (AUTO) 61 % (42-75); PLATELET COUNT 201 10^3/uL (130-400); WHITE BLOOD COUNT 8.7 10^3/uL (4.3-11.0)
[2021-03-01 13:34] LABS: ALBUMIN 3.8 GM/DL (3.2-4.5); BILIRUBIN,TOTAL 0.3 MG/DL (0.1-1.0); CALCIUM 9.7 MG/DL (8.5-10.1); CREATININE SERUM 1.06 MG/DL (0.60-1.30); MAGNESIUM 1.9 MG/DL (1.6-2.4); POTASSIUM 4.3 MMOL/L (3.6-5.0); TOTAL PROTEIN 7.1 GM/DL (6.4-8.2)
[2021-03-08 13:06] LABS: BASOPHILS # (AUTO) 0.1 10^3/uL (0.0-0.1); BASOPHILS % (AUTO) 1 % (0-10); EOSINOPHILS # (AUTO) 1.1 10^3/uL (0.0-0.3); EOSINOPHILS % (AUTO) 14 % (0-10); HEMATOCRIT 37 % (35-52); HEMOGLOBIN 12.9 g/dL (11.5-16.0); LYMPHOCYTES # (AUTO) 0.8 10^3/uL (1.0-4.0); LYMPHOCYTES % (AUTO) 10 % (12-44); MEAN CORPUSCULAR HEMOGLOBIN 35 pg (25-34); MEAN CORPUSCULAR HGB CONC 35 g/dL (32-36); MEAN CORPUSCULAR VOLUME 101 fL (80-99); MONOCYTES # (AUTO) 1.2 10^3/uL (0.0-1.0); MONOCYTES % (AUTO) 15 % (0-12); NEUTROPHILS # (AUTO) 4.6 10^3/uL (1.8-7.8); NEUTROPHILS % (AUTO) 59 % (42-75); PLATELET COUNT 209 10^3/uL (130-400); WHITE BLOOD COUNT 7.8 10^3/uL (4.3-11.0)
[2021-03-08 13:25] LABS: CALCIUM 9.6 MG/DL (8.5-10.1); CREATININE SERUM 1.14 MG/DL (0.60-1.30); POTASSIUM 4.3 MMOL/L (3.6-5.0)
[2021-03-15 12:54] LABS: BASOPHILS # (AUTO) 0.1 10^3/uL (0.0-0.1); BASOPHILS % (AUTO) 1 % (0-10); EOSINOPHILS # (AUTO) 0.5 10^3/uL (0.0-0.3); EOSINOPHILS % (AUTO) 6 % (0-10); HEMATOCRIT 40 % (35-52); HEMOGLOBIN 13.6 g/dL (11.5-16.0); LYMPHOCYTES # (AUTO) 0.8 10^3/uL (1.0-4.0); LYMPHOCYTES % (AUTO) 9 % (12-44); MEAN CORPUSCULAR HEMOGLOBIN 35 pg (25-34); MEAN CORPUSCULAR HGB CONC 34 g/dL (32-36); MEAN CORPUSCULAR VOLUME 101 fL (80-99); MEAN PLATELET VOLUME 8.8 fL (9.0-12.2); MONOCYTES # (AUTO) 1.2 10^3/uL (0.0-1.0); MONOCYTES % (AUTO) 12 % (0-12); NEUTROPHILS % (AUTO) 72 % (42-75); PLATELET COUNT 174 10^3/uL (130-400); WHITE BLOOD COUNT 9.8 10^3/uL (4.3-11.0)
[2021-03-15 13:26] LABS: POTASSIUM 5.1 MMOL/L (3.6-5.0)
[2021-03-15 13:27] LABS: CALCIUM 9.9 MG/DL (8.5-10.1); CREATININE SERUM 1.37 MG/DL (0.60-1.30)
[2021-03-22 13:26] LABS: BASOPHILS # (AUTO) 0.1 10^3/uL (0.0-0.1); BASOPHILS % (AUTO) 1 % (0-10); EOSINOPHILS # (AUTO) 0.6 10^3/uL (0.0-0.3); EOSINOPHILS % (AUTO) 8 % (0-10); HEMATOCRIT 36 % (35-52); HEMOGLOBIN 12.3 g/dL (11.5-16.0); LYMPHOCYTES # (AUTO) 0.8 10^3/uL (1.0-4.0); LYMPHOCYTES % (AUTO) 11 % (12-44); MEAN CORPUSCULAR HEMOGLOBIN 36 pg (25-34); MEAN CORPUSCULAR HGB CONC 35 g/dL (32-36); MEAN CORPUSCULAR VOLUME 104 fL (80-99); MEAN PLATELET VOLUME 9.1 fL (9.0-12.2); MONOCYTES # (AUTO) 0.9 10^3/uL (0.0-1.0); MONOCYTES % (AUTO) 13 % (0-12); NEUTROPHILS # (AUTO) 4.7 10^3/uL (1.8-7.8); NEUTROPHILS % (AUTO) 67 % (42-75); PLATELET COUNT 183 10^3/uL (130-400)
[2021-03-22 13:44] LABS: ALBUMIN 3.7 GM/DL (3.2-4.5); BILIRUBIN,TOTAL 0.2 MG/DL (0.1-1.0); CALCIUM 8.8 MG/DL (8.5-10.1); CREATININE SERUM 0.98 MG/DL (0.60-1.30); MAGNESIUM 1.9 MG/DL (1.6-2.4); POTASSIUM 4.1 MMOL/L (3.6-5.0); TOTAL PROTEIN 6.5 GM/DL (6.4-8.2)
[2021-03-29 13:23] LABS: BASOPHILS % (AUTO) 1 % (0-10); EOSINOPHILS # (AUTO) 0.7 10^3/uL (0.0-0.3); EOSINOPHILS % (AUTO) 8 % (0-10); HEMATOCRIT 39 % (35-52); HEMOGLOBIN 13.2 g/dL (11.5-16.0); LYMPHOCYTES # (AUTO) 0.8 10^3/uL (1.0-4.0); LYMPHOCYTES % (AUTO) 9 % (12-44); MEAN CORPUSCULAR HEMOGLOBIN 35 pg (25-34); MEAN CORPUSCULAR HGB CONC 34 g/dL (32-36); MEAN CORPUSCULAR VOLUME 104 fL (80-99); MEAN PLATELET VOLUME 9.2 fL (9.0-12.2); MONOCYTES # (AUTO) 1.2 10^3/uL (0.0-1.0); MONOCYTES % (AUTO) 13 % (0-12); NEUTROPHILS # (AUTO) 6.1 10^3/uL (1.8-7.8); NEUTROPHILS % (AUTO) 69 % (42-75); PLATELET COUNT 200 10^3/uL (130-400); WHITE BLOOD COUNT 8.8 10^3/uL (4.3-11.0)
[2021-03-29 13:52] LABS: CALCIUM 9.7 MG/DL (8.5-10.1); CREATININE SERUM 1.23 MG/DL (0.60-1.30); POTASSIUM 4.5 MMOL/L (3.6-5.0)
[2021-04-05 13:11] LABS: BASOPHILS # (AUTO) 0.1 10^3/uL (0.0-0.1); BASOPHILS % (AUTO) 1 % (0-10); EOSINOPHILS # (AUTO) 0.4 10^3/uL (0.0-0.3); EOSINOPHILS % (AUTO) 5 % (0-10); HEMATOCRIT 37 % (35-52); HEMOGLOBIN 12.6 g/dL (11.5-16.0); LYMPHOCYTES # (AUTO) 0.8 10^3/uL (1.0-4.0); LYMPHOCYTES % (AUTO) 9 % (12-44); MEAN CORPUSCULAR HEMOGLOBIN 36 pg (25-34); MEAN CORPUSCULAR HGB CONC 34 g/dL (32-36); MEAN CORPUSCULAR VOLUME 105 fL (80-99); MEAN PLATELET VOLUME 9.2 fL (9.0-12.2); MONOCYTES % (AUTO) 11 % (0-12); NEUTROPHILS # (AUTO) 6.7 10^3/uL (1.8-7.8); NEUTROPHILS % (AUTO) 74 % (42-75); PLATELET COUNT 189 10^3/uL (130-400)
[2021-04-05 13:28] LABS: CALCIUM 9.4 MG/DL (8.5-10.1); CREATININE SERUM 1.18 MG/DL (0.60-1.30); POTASSIUM 4.6 MMOL/L (3.6-5.0)
[2021-04-12 14:02] LABS: BASOPHILS # (AUTO) 0.1 10^3/uL (0.0-0.1); BASOPHILS % (AUTO) 1 % (0-10); EOSINOPHILS # (AUTO) 0.5 10^3/uL (0.0-0.3); EOSINOPHILS % (AUTO) 7 % (0-10); HEMATOCRIT 40 % (35-52); HEMOGLOBIN 13.7 g/dL (11.5-16.0); LYMPHOCYTES # (AUTO) 0.9 10^3/uL (1.0-4.0); LYMPHOCYTES % (AUTO) 13 % (12-44); MEAN CORPUSCULAR HEMOGLOBIN 37 pg (25-34); MEAN CORPUSCULAR HGB CONC 34 g/dL (32-36); MEAN CORPUSCULAR VOLUME 107 fL (80-99); MONOCYTES % (AUTO) 14 % (0-12); NEUTROPHILS # (AUTO) 4.6 10^3/uL (1.8-7.8); NEUTROPHILS % (AUTO) 65 % (42-75); PLATELET COUNT 211 10^3/uL (130-400); WHITE BLOOD COUNT 7.2 10^3/uL (4.3-11.0)
[2021-04-12 14:17] LABS: CREATININE SERUM 1.34 MG/DL (0.60-1.30); POTASSIUM 4.2 MMOL/L (3.6-5.0)
[~2021-04-26 10:44] MED LIST changes: -D5W IV SCH; -FLUO20CA46 PO; +FLUO20CA48 PO; -LEVO500T80 PO; +LEVO500T81 PO; -NS IV 1000 ML (CANCER CTR) 1,000 ML ONE; +OXALIPLATIN 100 MG in D5W 250 ML IVPB (CANCER CTR) 250 ML IV SCH; -OXALIPLATIN IV SCH
[2021-04-26 10:57] LABS: BASOPHILS % (AUTO) 1 % (0-10); EOSINOPHILS # (AUTO) 0.4 10^3/uL (0.0-0.3); EOSINOPHILS % (AUTO) 5 % (0-10); HEMATOCRIT 42 % (35-52); HEMOGLOBIN 14.1 g/dL (11.5-16.0); LYMPHOCYTES # (AUTO) 0.6 10^3/uL (1.0-4.0); LYMPHOCYTES % (AUTO) 9 % (12-44); MEAN CORPUSCULAR HEMOGLOBIN 36 pg (25-34); MEAN CORPUSCULAR HGB CONC 34 g/dL (32-36); MEAN CORPUSCULAR VOLUME 106 fL (80-99); MEAN PLATELET VOLUME 8.7 fL (9.0-12.2); MONOCYTES # (AUTO) 0.7 10^3/uL (0.0-1.0); MONOCYTES % (AUTO) 11 % (0-12); NEUTROPHILS % (AUTO) 74 % (42-75); PLATELET COUNT 237 10^3/uL (130-400); WHITE BLOOD COUNT 6.7 10^3/uL (4.3-11.0)
[2021-04-26 11:16] LABS: ALBUMIN 4.2 GM/DL (3.2-4.5); BILIRUBIN,TOTAL 0.4 MG/DL (0.1-1.0); CALCIUM 10.1 MG/DL (8.5-10.1); CREATININE SERUM 1.63 MG/DL (0.60-1.30); MAGNESIUM 2.1 MG/DL (1.6-2.4); POTASSIUM 4.5 MMOL/L (3.6-5.0); TOTAL PROTEIN 7.7 GM/DL (6.4-8.2)
== END 2021-05-20 | disposition home or self-care (01) ==
LOC: ONC 10:44
PROVIDERS: ATTEND Internal Medicine Hematology & Oncology
DX: Z51.11 Encounter for antineoplastic chemotherapy (principal); C20 Malignant neoplasm of rectum
CPT/HCPCS: 80053; 83735; 85025; 96367; 96375; 96413; G0463; 36591; 80048; 82378; 99213

== ENCOUNTER 2022-10-11 05:39 | Outpatient (CLI) | payer MEDICARE, OTHER ==
[~2022-10-11] VITALS: Ht 152.4 cm; Wt 56.2 kg
[~2022-10-11 05:39] MED LIST changes: -D5W 500 ML IV (CANCER CTR) 500 ML IV SCH; -FOSAPREPITANT (CANCER CENTER) 150 MG in NS (IVPB) CANCER CENTER ONLY 150 ML IV SCH; +LEVO-55 PO; -LEVO500T81 PO; -OXALIPLATIN 100 MG in D5W 250 ML IVPB (CANCER CTR) 250 ML IV SCH; -OXALIPLATIN 100 MG, OXALIPLATIN (GENERIC) 20 MG in D5W 250 ML IVPB (CANCER CTR) 250 ML IV SCH
[2022-10-11] MEDS ORDERED: CITA20TA12 PO (10:27)
[2022-10-11] MEDS ORDERED: METH2.5T PO (10:27)
[2022-10-11] MEDS ORDERED: COLE1TAB PO (10:27)
== END 2022-10-11 10:31 ==
LOC: PREOP 05:39
PROVIDERS: ATTEND Surgery
DX: Z01.818 Encounter for other preprocedural examination (principal); Z85.048 Personal history of other malignant neoplasm of rectum, rectosigmoid junction, and anus

== ENCOUNTER 2022-10-18 12:42 | Day surgery (SDC) | payer MEDICARE, OTHER ==
[~2022-10-18] VITALS: Ht 152 cm; Wt 56.2 kg
[~2022-10-18 12:42] MED LIST changes: +CITA20TA12 PO; +METH2.5T PO
[2022-10-18] MEDS ORDERED: LACTATED RINGERS 1,000 ML IV STA (12:43)
[2022-10-18] MEDS ORDERED: LIDOCAINE JELLY 2% 6 ML SYRINGE MM PRN (12:45)
--- NOTE | 2022-10-18 12:52 | Progress Note-Pre Operative ---
Pre-Operative Progress Note Date of Available H&P: October 18, 2022 Date H&P Reviewed: October 18, 2022 Time H&P Reviewed: 12:50 History & Physical: No changes noted Pre-Operative Diagnosis: hx rectal cancer ANAHI MACK MD October 18, 2022 12:52
--- NOTE | 2022-10-18 12:54 | Discharge Inst-Surgical ---
D/C Lap Instructions-MARTINA Follow Up Activity as tolerated High Fiber Diet 25g or more per day Avoid Alcohol, Caffeine, Spicy Bush and Acid foods. Drink 64 fluid oz or more of fluids per day. Symptoms to Report: Fever over 101 degree F, Nausea/Vomiting If any problems/questions: Contact your physician or go to Emergency Room ANAHI MACK MD October 18, 2022 12:53
[2022-10-18 13:00] VITALS: BP 153/86
[2022-10-18] MEDS ORDERED: ONDANSETRON 4 MG (ZOFRAN) ORAL DISSOLVE TAB PO PRN (13:00)
[2022-10-18] MEDS ORDERED: ONDANSETRON 4 MG/2 ML (SDV) Z0FRAN IVP PRN (13:00)
[2022-10-18] MEDS ORDERED: PROPOFOL INJECTION 50 ML IV ONE (15:12)
[2022-10-18] MEDS ORDERED: LIDOCAINE JELLY 2% 6 ML SYRINGE ONE (15:14)
[2022-10-18 15:34] VITALS: BP 108/53
[2022-10-18 15:40] VITALS: BP 112/59
--- NOTE | 2022-10-18 15:42 | Progress Note-Post Operative ---
Post-Operative Progess Note Surgeon (s)/Hand Ii Cutter (s) Surgeon ANAHI MACK MD Hand Ii Cutter: none Pre-Operative Diagnosis hx rectal cancer Post-Operative Diagnosis chronic stage 2 ext and int hemorrhoids, normal colorectal anastomosis, moderate descending and transverse colonic diverticulosis. Procedure & Operative Findings Date of Procedure 10/18/22 Procedure Performed/Findings colonoscopy. Anesthesia Type mac Estimated Blood Loss Estimated blood loss (mL): minimal Specimens/Packing Specimens Removed none ANAHI MACK MD October 18, 2022 15:42
[2022-10-18 16:13] VITALS: BP 112/59
--- NOTE | 2022-10-18 16:43 | Anesthesia-General Post-Op ---
MAC Patient Condition Mental Status/LOC: Same as Preop Cardiovascular: Satisfactory Nausea/Vomiting: Absent Respiratory: Satisfactory Pain: Controlled Complications: Absent Post Op Complications Complications None Follow Up Care/Instructions Patient Instructions None needed. Anesthesiology Discharge Order Discharge Order Patient is doing well, no complaints, stable vital signs, no apparent adverse anesthesia problems. No complications reported per nursing. GODWIN SHELTON CRNA October 18, 2022 16:43
--- NOTE | 2022-10-18 23:21 | OPERATIVE REPORT ---
DATE OF SERVICE: 10/18/2022 ATTENDING PRIMARY CARE PHYSICIAN: Dr. Lara. PREOPERATIVE DIAGNOSIS: History of rectal cancer in need of a followup colonoscopy. POSTOPERATIVE DIAGNOSES: Mild chronic stage II external and internal hemorrhoids. Moderate descending and transverse colonic diverticulosis. PROCEDURE: Colonoscopy. SURGEON: Anahi Mack MD ANESTHESIA: Monitored anesthesia care. ESTIMATED BLOOD LOSS: Minimal. FINDINGS: Mild chronic stage II external and internal hemorrhoids. Moderate descending and transverse colonic diverticulosis. DISPOSITION: The patient tolerated the procedure well. INDICATIONS: The patient is a 76-year-old female known to us. She had developed rectal bleeding in 06/2020 and underwent a colonoscopy and was found to have a large rectal mass 5 cm from the anal verge, which came back as an intramucosal adenocarcinoma. She was referred to [facility] and underwent a laparoscopic low anterior colorectal resection, anastomosis as well as placement of an end ileostomy, which was eventually reversed. She also underwent chemotherapy. She is in need of followup colonoscopies every year for 3 consecutive years and then from that point forward then 3 years and eventually 5 years if no lesions identified. DESCRIPTION OF PROCEDURE: The patient was brought to the endoscopy suite and laid in the left lateral decubitus position. After adequate IV pain and sedative medications and monitored anesthesia care, a digital rectal examination was performed. Chronic stage II external and internal hemorrhoids were identified, which were not actively edematous nor inflamed and no bleeding. Normal sphincter tone was felt and there were no palpable masses. The endoscope was then intubated into the anus, rectum gently insufflated. The endoscope was then advanced through remaining valves of Trent of the rectum and the stapled anastomotic line was identified and completely widely patent and no recurrent tumors. The endoscope was then advanced through the descending and transverse colon where a moderate sigmoid diverticulosis identified. We then proceeded through the ascending colon to the cecum, which were normal. No polyps or any neoplasms identified. The endoscope was then slowly withdrawn while taking a second look and suctioning of residual air with no additional findings. The patient tolerated the procedure well. We will recommend continued medical management with a high-fiber diet through an addition of a fiber supplement as well as copious amounts of water to promote soft consistency stools on a daily basis. We will check her records to see what number yearly colonoscopy this is, if this is her second she will need another colonoscopy in approximately one year. Job ID: [id number] DocumentID: [id number] Dictated Date: 10/18/2022 15:36:00 Insemination Worker Date: 10/18/2022 23:18:00 Dictated By: ANAHI MACK MD
== END 2022-10-18 16:20 | disposition home or self-care (01) ==
LOC: ENDO 12:42
PROVIDERS: ATTEND Surgery
DX: Z12.11 Encounter for screening for malignant neoplasm of colon (principal); K64.0 First degree hemorrhoids; K64.1 Second degree hemorrhoids; K57.30 Diverticulosis of large intestine without perforation or abscess without bleeding; Z85.048 Personal history of other malignant neoplasm of rectum, rectosigmoid junction, and anus; Z90.49 Acquired absence of other specified parts of digestive tract; Z87.891 Personal history of nicotine dependence; Z85.038 Personal history of other malignant neoplasm of large intestine